=== PATIENT | male | born 1950 | race Caucasian/White ===

== ENCOUNTER 2016-05-10 12:20 | Emergency (ER) | payer BC ==
[~2016-05-10] VITALS: Ht 177.8 cm; Wt 82.0 kg
[~2016-05-10 12:20] MED LIST: ATOR-22 PO; IRBE-37 PO
[2016-05-10 12:23] VITALS: Ht 177.8 cm; Wt 82.0 kg
[2016-05-10] MEDS ORDERED: SODIUM CHLORIDE 0.9% 1000ML 1,000 ML IV STA (12:24)
[2016-05-10] MEDS ORDERED: ACETAMINOPHEN 500 MG TAB PO STA (12:24)
[2016-05-10] MEDS ORDERED: ALBUT/IPRATROP 3MG/0.5MG NEB 3 ML VIAL INH ONE (12:30)
--- NOTE | 2016-05-10 12:39 | EMERGENCY ROOM VISIT NOTE ---
History Report prepared by Triston: Mustapha Zaragoza Under the Supervision of: Dr. Jozef Wallis M.D. First contact with patient: 12:21 Chief Complaint: ILLNESS Stated Complaint: ILLNESS History of Present Illness The patient is a 66 year old male who presents to the Emergency Room with complaints of worsening fatigue that began last Wednesday, one week prior to arrival. The patient states that he began to experience flu-like symptoms last Wednesday. He went to see his primary care physician on Wednesday, five days prior to this visit and was diagnosed with an upper respiratory infection. He felt improved on Wednesday, but began to worsen again on Wednesday. Since this day the patient's cough has persisted and his general fatigue has worsened. His cough is dry. He has been taking Mucinex which have relieved his runny nose. He is not on any blood thinning medications, but does note a history of high blood pressure. He has been diagnosed with an IGG deficiency. 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 A total of 10 systems reviewed and were otherwise negative. Past Medical & Surgical Medical Problems: (1) IgG deficiency IgG deficiency Family History No pertinent family history. Social History Smoking Status: Former Smoker Alcohol Use: other Drug Use: none Marital Status: Housing Status: lives with significant other Current/Historical Medications Scheduled Atorvastatin (Lipitor), 20 MG PO QAM Azithromycin (Zithromax), 250 MG PO DAILY Benzonatate (Tessalon Perles), 100 MG PO TID Irbesartan (Avapro), 1 TAB PO QAM Prednisone (Prednisone Tab), 0 PO DAILY Allergies Coded Allergies: No Known Allergies (Unverified , 05/10/16) Physical Exam Vital Signs Date Time Temp Pulse Resp B/P Pulse Ox O2 Delivery O2 Flow Rate FiO2 05/10/16 14:02 36.7 83 16 149/70 100 05/10/16 13:12 64 05/10/16 13:04 62 22 95 Room Air 05/10/16 12:41 63 170/93 100 69 170/90 71 161/80 05/10/16 12:40 Room Air 05/10/16 12:39 Room Air 05/10/16 12:23 36.9 62 16 179/118 99 Room Air Physical Exam GENERAL: Patient is a healthy-appearing well-nourished HEAD: Normocephalic atraumatic EYES: Ocular movements intact pupils equal and react to light OROPHARYNX mucous membranes are moist no exudates present no erythema or edema present NECK: Supple no nuchal rigidity CHEST: Good equal expansion LUNGS: Clear and equal to auscultation CARDIAC: Normal S1 and S2 ABDOMEN: Soft nontender no guarding BACK: No CVA tenderness EXTREMITIES: No pain upon palpation normal muscle strength in all groups no clubbing cyanosis or edema NEURO: Patient is following commands is answering questions appropriately. Alert and oriented x3 Cranial Nerves 2-12 grossly intact Medical Decision & Procedures ER Provider Diagnostic Interpretation: Radiology results as stated below per my review and radiologist interpretation: SINGLE VIEW CHEST CLINICAL HISTORY: Cough. FINDINGS: An AP, portable, upright chest radiograph is obtained. No prior studies are available for comparison at the time of dictation. The examination is degraded by portable technique and patient rotation. The heart is top normal for projection and there is atherosclerotic calcification of the thoracic aorta. The lungs appear hyperinflated and hyperlucent with mild flattening of the diaphragm suggesting obstructive physiology. Nonspecific interstitial thickening is noted. No airspace consolidation or pleural effusion is identified. No pneumothorax is seen. The bony thorax is grossly intact. Mild degenerative change is noted in the thoracic spine. IMPRESSION: Findings suggest obstructive physiology. There is no acute cardiopulmonary abnormality. Electronically signed by: Dave Sewell M.D. 05/10/2016 1:06 PM Dictated Date/Time: 05/10/2016 1:04 PM Laboratory Results 05/10/16 12:30 Red Blood Count 4.43, Mean Corpuscular Volume 93.9, Mean Corpuscular Hemoglobin 33.6, Mean Corpuscular Hemoglobin Concent 35.8, Mean Platelet Volume 11.4, Neutrophils (%) (Auto) 53.0, Lymphocytes (%) (Auto) 38.8, Monocytes (%) (Auto) 7.0, Eosinophils (%) (Auto) 0.4, Basophils (%) (Auto) 0.6, Neutrophils # (Auto) 2.82, Lymphocytes # (Auto) 2.06, Monocytes # (Auto) 0.37, Eosinophils # (Auto) 0.02, Basophils # (Auto) 0.03 05/10/16 12:30 Test 05/10/16 12:30 White Blood Count 5.31 K/uL (4.8-10.8) Red Blood Count 4.43 M/uL (4.7-6.1) Hemoglobin 14.9 g/dL (14.0-18.0) Hematocrit 41.6 % (42-52) Mean Corpuscular Volume 93.9 fL (80-100) Mean Corpuscular Hemoglobin 33.6 pg (25-34) Mean Corpuscular Hemoglobin Concent 35.8 g/dl (32-36) Platelet Count 185 K/uL (130-400) Mean Platelet Volume 11.4 fL (7.4-10.4) Neutrophils (%) (Auto) 53.0 % Lymphocytes (%) (Auto) 38.8 % Monocytes (%) (Auto) 7.0 % Eosinophils (%) (Auto) 0.4 % Basophils (%) (Auto) 0.6 % Neutrophils # (Auto) 2.82 K/uL (1.4-6.5) Lymphocytes # (Auto) 2.06 K/uL (1.2-3.4) Monocytes # (Auto) 0.37 K/uL (0.11-0.59) Eosinophils # (Auto) 0.02 K/uL (0-0.5) Basophils # (Auto) 0.03 K/uL (0-0.2) RDW Standard Deviation 44.8 fL (36.4-46.3) RDW Coefficient of Variation 12.9 % (11.5-14.5) Immature Granulocyte % (Auto) 0.2 % Immature Granulocyte # (Auto) 0.01 K/uL (0.00-0.02) Urine Color YELLOW Urine Appearance CLEAR (CLEAR) Urine pH 7.0 (4.5-7.5) Urine Specific [place] 1.018 (1.000-1.030) Urine Protein NEG (NEG) Urine Glucose (UA) NEG (NEG) Urine Ketones NEG (NEG) Urine Occult Blood NEG (NEG) Urine Nitrite NEG (NEG) Urine Bilirubin NEG (NEG) Urine Urobilinogen NEG (NEG) Urine Leukocyte Esterase SMALL (NEG) Urine WBC (Auto) 5-10 /hpf (0-5) Urine RBC (Auto) 0-4 /hpf (0-4) Urine Hyaline Casts (Auto) 1-5 /lpf (0-5) Urine Epithelial Cells (Auto) 10-20 /lpf (0-5) Urine Bacteria (Auto) NEG (NEG) Anion Gap 12.0 mmol/L (3-11) Est Creatinine Clear Calc Drug Dose 81.3 ml/min Estimated GFR () 100.7 Estimated GFR (Non- 86.9 BUN/Creatinine Ratio 23.3 (10-20) Bedside Glucose 110 mg/dl (70-99) Calcium Level 9.6 mg/dl (8.5-10.1) Total Bilirubin 1.1 mg/dl (0.2-1) Direct Bilirubin 0.2 mg/dl (0-0.2) Aspartate Amino Transf (AST/SGOT) 21 U/L (15-37) Alanine Aminotransferase (ALT/SGPT) 54 U/L (12-78) Alkaline Phosphatase 80 U/L (45-117) Troponin I < 0.015 ng/ml (0-0.045) Total Protein 8.9 gm/dl (6.4-8.2) Albumin 4.1 gm/dl (3.4-5.0) Thyroid Stimulating Hormone (TSH) 1.050 uIu/ml (0.300-4.500) Influenza Type A (RT-PCR) Neg for Influ A (NEG) Influenza Type A Antigen Neg for Influ A (NEG) Influenza Type B Antigen Neg for Influ B (NEG) Influenza Type B (RT-PCR) Neg for Influ B (NEG) Labs reviewed by ED physician. Medications Administered Medications (Trade) Dose Ordered Sig/Mable Route Start Time Stop Time Status Last Admin Dose Admin Sodium Chloride (Nss 1000ml) 1,000 ml @ 999 mls/hr Q1H1M STAT IV 05/10/16 12:24 05/10/16 13:24 DC 05/10/16 12:36 999 MLS/HR Acetaminophen (Tylenol Tab) 1,000 mg NOW STAT PO 05/10/16 12:24 05/10/16 12:26 DC 05/10/16 12:36 1,000 MG Albuterol/ Ipratropium (Duoneb) 12 ml ONE ONCE INH 05/10/16 12:30 05/10/16 12:31 DC 05/10/16 13:00 12 ML Methylprednisolone Sodium Succinate (Solu-Medrol IV) 60 mg NOW STAT IV 05/10/16 13:00 05/10/16 13:01 DC 05/10/16 13:09 60 MG Ketorolac Tromethamine (Toradol Inj) 30 mg NOW STAT IV 05/10/16 13:13 05/10/16 13:14 DC 05/10/16 13:26 30 MG Azithromycin (Zithromax Tab) 500 mg NOW ONCE PO 05/10/16 13:30 05/10/16 13:31 DC 05/10/16 13:58 500 MG Albuterol (Ventolin Hfa Inhaler) 2 puffs NOW STAT INH 05/10/16 13:32 05/10/16 13:33 DC 05/10/16 13:58 2 PUFFS ECG Indication: weakness Rate (beats per minute): 62 Rhythm: normal sinus Findings: no acute ischemic change, no ectopy ED Course 1224: Past medical records reviewed. The patient was evaluated in room A3. A complete history and physical examination was performed. 1224: Ordered Acetaminophen 1000 mg PO, Sodium Chloride 1000 mL @ 999 mL/hr IV. 1230: Ordered Duoneb 12 mL INH. 1300: Ordered Solu-Medrol 60 mg IV. 1313: Ordered Toradol 30 mg IV. 1330: Ordered Azithromycin 500 mg PO. 1332: Ordered Albuterol 2 puffs INH. 1342: Upon reexamination the patient is feeling improved. I discussed results and treatment plan with the patient. He verbalizes agreement and understanding. The patient is ready for discharge. Medical Decision Differential diagnosis: Etiologies such as viral syndrome, otitis, pharyngitis, pneumonia, influenza, meningitis, urinary tract infection, sepsis, bacteremia, as well as others were entertained. This is a 66-year-old male who presents emergency department complaining of cough, the patient has a history of IgG deficiency. He does have normal white blood count and is well in appearance. He has no evidence of meningitis encephalitis on examination. Based on your chest x-ray finding I did start the patient on Solu-Medrol along with DuoNeb's. The patient was also started on azithromycin. The patient as well as to be discharged home however I will continue him on prednisone as well as azithromycin stressed the need for follow- up especially if his symptoms are not better. Patient was in agreement with the treatment plan. Impression Primary Impression: Bronchitis Scribe Attestation The scribe's documentation has been prepared under my direction and personally reviewed by me in its entirety. I confirm that the note above accurately reflects all work, treatment, procedures, and medical decision making performed by me. Departure Information Dispostion Home / Self-Care Prescriptions Prednisone (Prednisone Tab) 20 Mg Tab 0 PO DAILY, #7 TAB 2 TABS DAILY FOR 2 DAYS, THEN 1 TAB DAILY FOR 2 DAYS, THEN 1/2 TAB DAILY FOR 2 DAYS. Prov: Jozef Wallis MD 05/10/16 Azithromycin (ZITHROMAX) 250 Mg Tab 250 MG PO DAILY, #4 TAB Prov: Jozef Wallis MD 05/10/16 Referrals Dotty íRos M.D. (PCP) Forms HOME CARE DOCUMENTATION FORM, IMPORTANT VISIT INFORMATION, WORK / SCHOOL INSTRUCTIONS Patient Instructions My [facility] Additional Instructions Use inhaler twice every 6 hours Take 1000 mg Tylenol every 6 hours Culture results are usually available in approx 48 hours You have been examined and treated today on an emergency basis only. This is not a substitute for, or an effort to provide, complete comprehensive medical care. It is impossible to recognize and treat all injuries or illnesses in a single emergency department visit. It is therefore important that you follow up closely with Dr Ríos. Call as soon as possible for an appointment. Thank you for your time and consideration. I look forward to speaking with you again soon. Please don't hesitate to call us if you have any questions.
[2016-05-10 12:44] LABS: BASO % 0.6 %; BASO ABS # 0.03 K/uL (0-0.2); COMPLETE YES; EOS % 0.4 %; HEMATOCRIT 41.6 % (42-52); IG% 0.2 %; LYMPH % 38.8 %; LYMPH ABS # 2.06 K/uL (1.2-3.4); MEAN CELL VOLUME 93.9 fL (80-100); MEAN CORPUSCULAR HEMOGLOBIN 33.6 pg (25-34); MEAN CORPUSCULAR HGB CONC 35.8 g/dl (32-36); MEAN PLATELET VOLUME 11.4 fL (7.4-10.4); PLATELET COUNT 185 K/uL (130-400); RED BLOOD COUNT 4.43 M/uL (4.7-6.1); WHITE BLOOD COUNT 5.31 K/uL (4.8-10.8)
[2016-05-10 12:48] LABS: URINE APPEARANCE CLEAR (CLEAR); URINE BILIRUBIN NEG (NEG); URINE COLOR YELLOW; URINE NITRITE NEG (NEG); URINE SPECIFIC GRAVITY 1.018 (1.000-1.030); UROBILINOGEN NEG (NEG)
[2016-05-10 12:56] LABS: MANUAL MICROSCOPIC REQUIRED? NO; REVIEW REQ? NO
[2016-05-10 12:58] LABS: ALT/SGPT 54 U/L (12-78); BLOOD UREA NITROGEN 21 mg/dl (7-18); BUN/CREATININE RATIO 23.3 (10-20); CALCIUM 9.6 mg/dl (8.5-10.1); CARBON DIOXIDE 24 mmol/L (21-32); CHLORIDE 104 mmol/L (98-107); CREATININE 0.91 mg/dl (0.60-1.40); GLUCOSE 108 mg/dl (70-99); POTASSIUM 3.8 mmol/L (3.5-5.1); SODIUM 140 mmol/L (136-145)
[2016-05-10] MEDS ORDERED: METHYLPREDNISOLONE 125 MG VIAL IV STA (13:00)
[2016-05-10 13:04] VITALS: PULSE 62; O2SAT 95
--- NOTE | 2016-05-10 13:07 | DIAGNOSTIC IMAGING REPORT ---
SINGLE VIEW CHEST CLINICAL HISTORY: Cough. FINDINGS: An AP, portable, upright chest radiograph is obtained. No prior studies are available for comparison at the time of dictation. The examination is degraded by portable technique and patient rotation. The heart is top normal for projection and there is atherosclerotic calcification of the thoracic aorta. The lungs appear hyperinflated and hyperlucent with mild flattening of the diaphragm suggesting obstructive physiology. Nonspecific interstitial thickening is noted. No airspace consolidation or pleural effusion is identified. No pneumothorax is seen. The bony thorax is grossly intact. Mild degenerative change is noted in the thoracic spine. IMPRESSION: Findings suggest obstructive physiology. There is no acute cardiopulmonary abnormality. Electronically signed by: Dave Sewell M.D. 05/10/2016 1:06 PM Dictated Date/Time: 05/10/2016 1:04 PM
[2016-05-10 13:08] LABS: ALKALINE PHOSPHATASE 80 U/L (45-117); AST/SGOT 21 U/L (15-37)
[2016-05-10] MEDS ORDERED: KETOROLAC TROMETHAMINE 30 MG/ML VIAL IV STA (13:13)
[2016-05-10] MEDS ORDERED: BENZ100C6 PO (13:28)
[2016-05-10] MEDS ORDERED: AZITHROMYCIN 250 MG TAB PO ONE (13:30)
[2016-05-10] MEDS ORDERED: ALBUTEROL HFA 8 GM INHALER INH STA (13:32)
[2016-05-10] MEDS ORDERED: PRED20TA2 PO (13:33)
[2016-05-10] MEDS ORDERED: AZIT250T5 PO (13:33)
[2016-05-10 14:02] VITALS: BP 149/70; PULSE 83; TEMP 36.7; O2SAT 100
[2016-05-10 14:33] LABS: INFLUENZA A PCR Neg for Influ A (NEG); INFLUENZA B PCR Neg for Influ B (NEG)
== END 2016-05-10 14:00 | disposition home or self-care (01) ==
LOC: EDBD 12:20 → C.EDA 12:21
DX: J40 Bronchitis, not specified as acute or chronic (principal); Z87.891 Personal history of nicotine dependence

== ENCOUNTER → 2016-07-21 | Outpatient (CLI) | payer BC ==
[~2016-07-21] MED LIST changes: +BENZ100C6 PO; +PRED20TA2 PO
[2016-07-21 13:10] LABS: ESTIMATED AVERAGE GLUCOSE 105 mg/dl; HA1C FLAG Normal (Normal)
[2016-07-21 14:25] LABS: ALT/SGPT 47 U/L (12-78); AST/SGOT 21 U/L (15-37); BLOOD UREA NITROGEN 21 mg/dl (7-18); BUN/CREATININE RATIO 21.3 (10-20); CALCIUM 9.4 mg/dl (8.5-10.1); CARBON DIOXIDE 26 mmol/L (21-32); CHLORIDE 108 mmol/L (98-107); GLUCOSE 108 mg/dl (70-99); POTASSIUM 4.2 mmol/L (3.5-5.1); SODIUM 142 mmol/L (136-145)
[2016-07-21 14:27] LABS: ALKALINE PHOSPHATASE 82 U/L (45-117); CHOLESTEROL 148 mg/dl (0-200); HDL CHOLESTEROL 37 mg/dl; LDL CHOLESTEROL CALCULATED 77 mg/dl; TRIGLYCERIDES 168 mg/dl (0-150); VERY LOW DENSITY LIPOPROT CALC 34 mg/dl
== END | disposition home or self-care (01) ==
LOC: C.LABPVFM 07:49
PROVIDERS: ATTEND Family Medicine
DX: Z12.5 Encounter for screening for malignant neoplasm of prostate (principal); R73.01 Impaired fasting glucose; E78.5 Hyperlipidemia, unspecified; I10 Essential (primary) hypertension

== ENCOUNTER → 2016-07-24 | Outpatient (CLI) | payer BC ==
[2016-07-24 13:23] LABS: LYME DISEASE AB IGM NEG (NEG)
[2016-07-24 13:28] LABS: LYME DISEASE AB IGG POS (NEG)
--- NOTE | 2016-07-29 12:27 | CODING QUERY NO DIAGNOSIS ---
TREATMENT RENDERED WITHOUT A DIAGNOSIS To promote full compliance with coding requirements relating to patient care, physician participation is requested in all cases of environmental remediation specialist uncertainty. Please assist us with providing a diagnosis/symptom for the test(s) below: A diagnosis/symptom was not documented on your Order. A valid diagnosis/symptom is required to bill all insurances. Please remember that we are unable to code a diagnosis of rule out, probable, possible, questionable, or suspected. Tests that require a diagnosis: * WESTERN BLOT LYME DIAGNOSIS: * LYME IGG & IGM +WM CONFIRM DIAGNOSIS: Provider Signature: Date: Thank you Domenica [employer] Once completed, please kindly fax back to [phone] For questions please call [phone]
[2016-07-31 23:23] LABS: 18KDIGG BAND REACTIVE (NONREACTIVE); 23KDIGG BAND REACTIVE (NONREACTIVE); 23KDIGM BAND REACTIVE (NONREACTIVE); 28KDIGG BAND REACTIVE (NONREACTIVE); 30KDIGG BAND REACTIVE (NONREACTIVE); 39KDIGG BAND REACTIVE (NONREACTIVE); 39KDIGM BAND NONREACTIVE (NONREACTIVE); 41KDIGG BAND REACTIVE (NONREACTIVE); 41KDIGM BAND NONREACTIVE (NONREACTIVE); 45KDIGG BAND REACTIVE (NONREACTIVE); 58KDIGG BAND REACTIVE (NONREACTIVE); 66KDIGG BAND REACTIVE (NONREACTIVE); 93KDIGG BAND NONREACTIVE (NONREACTIVE)
== END | disposition home or self-care (01) ==
LOC: C.LABPVFM 08:40
PROVIDERS: ATTEND Family Medicine
DX: S70.361A Insect bite (nonvenomous), right thigh, initial encounter (principal); W57.XXXA Bitten or stung by nonvenomous insect and other nonvenomous arthropods, initial encounter

== ENCOUNTER → 2016-12-29 | Day surgery (SDC) | payer BC ==
[2016-05-05 13:56] VITALS: BMI 25.0
[2016-12-17 09:05] VITALS: Ht 180.3 cm; Wt 81.4 kg
[~2016-12-29] VITALS: Ht 180.3 cm; Wt 81.4 kg
[~2016-12-29] MED LIST changes: -BENZ100C6 PO; +LIDOCAINE HCL 2% 2 ML VIAL (20MG/ML) ONE; -PRED20TA2 PO; +PROPOFOL IV EMULSION 10 MG/ML 20 ML VIAL IV ONE; +SODIUM CHLORIDE 0.9% 500ML 500 ML IV ONE
--- NOTE | 2016-12-29 11:02 | Endo History and Physical ---
History & Physical Date of Service: Dec 29, 2016. Chief Complaint: screening Referring Physician: Dr. Ríos History of Present Illness 66 yo CM who presents for screening colonoscopy. Past Medical History High Cholesterol, Hypertension Past Surgical History Hx Cardiac Surgery: No Hx Internal Defibrillator: No Hx Pacemaker: No Hx Abdominal Surgery: No Hx of Implantable Prosthesis: No Hx Post-Op Nausea and Vomiting: No Hx Cancer Surgery: No Hx Thoracic Surgery: No Hx Orthopedic: No Hx Urinary Tract Surgery: No Family History None Social History Smoking Status: Former Smoker Hx Substance Use: No Hx Alcohol Use: Yes (OCCASIONAL) Allergies Coded Allergies: No Known Allergies (Verified , 12/29/16) Current Medications Reported Home Medications Medications Dose Route/Sig Max Daily Dose Days Date Category Avapro (Irbesartan) 150 Mg Tab 1 Tab PO QAM 04/24/15 Reported Lipitor (Atorvastatin Calcium) 20 Mg Tab 20 Mg PO QAM 09/19/14 Reported Vital Signs Weight (Kilograms): 81.36 Height (Feet): 5 Height (Inches): 11 Date Time Temp Pulse Resp B/P (MAP) Pulse Ox O2 Delivery O2 Flow Rate FiO2 12/29/16 10:21 36.5 64 20 162/89 (113) 99 Room Air Physical Exam General Appearance: WD/WN, no apparent distress Respiratory/Chest: Auscultation: breath sounds normal Cardiovascular: Heart Auscultation: RRR Abdomen: Bowel Sounds: normal Inspection & Palpation: soft, non-distended, no tenderness, guarding & rebound Assessment and Plan Assessment: 66 yo CM who presents for screening colonoscopy. Plan: Proceed with Colonoscopy.
--- NOTE | 2016-12-29 11:48 | GI REPORT ---
Procedure Date: 12/29/2016 11:11 AM Procedure: Colonoscopy Indications: Screening for colorectal malignant neoplasm Medicines: Monitored Anesthesia Care Complications: No immediate complications. Estimated Blood Loss: Estimated blood loss: none. Procedure: Pre-Anesthesia Assessment: - Prior to the procedure, a History and Physical was performed, and patient medications and allergies were reviewed. The patient's tolerance of previous anesthesia was also reviewed. The risks and benefits of the procedure and the sedation options and risks were discussed with the patient. All questions were answered, and informed consent was obtained. Prior Anticoagulants: The patient has taken no previous anticoagulant or antiplatelet agents. ASA Grade Assessment: II - A patient with mild systemic disease. After reviewing the risks and benefits, the patient was deemed in satisfactory condition to undergo the procedure. After I obtained informed consent, the scope was passed under direct vision. Throughout the procedure, the patient's blood pressure, pulse, and oxygen saturations were monitored continuously. The scope was introduced through the anus and advanced to the terminal ileum. The colonoscopy was performed without difficulty. The patient tolerated the procedure well. The quality of the bowel preparation was good. The terminal ileum, ileocecal valve, appendiceal orifice, and rectum were photographed. Findings: The perianal and digital rectal examinations were normal. A 4 mm polyp was found in the ascending colon. The polyp was sessile. The polyp was removed with a cold snare. Resection and retrieval were complete. A 5 mm polyp was found in the rectum. The polyp was sessile. The polyp was removed with a hot snare. Resection and retrieval were complete. Non-bleeding internal hemorrhoids were found during retroflexion. The hemorrhoids were small. Impression: - One 4 mm polyp in the ascending colon, removed with a cold snare. Resected and retrieved. - One 5 mm polyp in the rectum, removed with a hot snare. Resected and retrieved. - Non-bleeding internal hemorrhoids. Recommendation: - Resume previous diet. - Continue present medications. - Repeat colonoscopy for surveillance based on pathology results. - Return to primary care physician as previously scheduled. Ruben Lowery DO 12/29/2016 11:47:58 AM This report has been signed electronically. Note Initiated On: 12/29/2016 11:11 AM I attest to the content of the Intraoperative Record and orders documented therein, exceptions below
--- NOTE | 2016-12-29 11:52 | Discharge Instructions ---
Endoscopy Patient Instructions Date / Procedure(s) Performed Dec 29, 2016. Colonoscopy Allergy Information Coded Allergies: No Known Allergies (Verified , 12/29/16) Discharge Date / Findings Dec 29, 2016. Colon polyp Rectal polyp Internal Hemorrhoids Medication Instructions OK to resume all medications today as prescribed Reported Home Medications Medications Dose Route/Sig Max Daily Dose Days Date Category Avapro (Irbesartan) 150 Mg Tab 1 Tab PO QAM 04/24/15 Reported Lipitor (Atorvastatin Calcium) 20 Mg Tab 20 Mg PO QAM 09/19/14 Reported Provider Instructions Activity Restrictions - No exercising or heavy lifting for 24 hours. - Do not drink alcohol the day of the procedure. - Do not drive a car or operate machinery until the day after the procedure. - Do not make any important decisions or sign important papers in 24 hours after the procedure. Following Day: - Return to full activity which may include returning to work/school. Diet Start your diet with liquids and light foods (jello, soup, juice, toast). Then eat your usual diet if not nauseated. Treatment For Common After Affects For mild abdominal pain, bloating, or excessive gas: - Rest - Eat lightly - Lie on right side Follow-Up Information Follow-up with Dr. Ríos as scheduled Anesthesia Information What You Should Know You have had a procedure that required some medicine to reduce anxiety and discomfort. This treatment is called moderate sedation. After receiving the treatment, you may be sleepy, but you will be able to breathe on your own. The effects of the treatment may last for several hours. Follow these instructions along with Activity/Diet recommendations noted above: * Do NOT do anything where dizziness or clumsiness would be dangerous. * Rest quietly at home today, then you can be up and about tomorrow. * Have a responsible person stay with you the rest of today. * You may have had an I.V. today. If so, you may take the dressing off later today. Recommendations Call your doctor if: * Trouble breathing * Continuous vomiting for more than 24 hours * Temperature above 101 degrees * Severe abdominal pain or bloating * Pain not relieved by pain medicine ordered * There is increased drainage or redness from any incision * A large amount of rectal bleeding greater than 2-3 tablespoons. (If you had a polyp/s removed or have hemorrhoids, a small amount of blood - from the rectum is to be expected.) * You have any unanswered questions or concerns. IN THE EVENT OF A SERIOUS EMERGENCY, GO TO THE NEAREST EMERGENCY ROOM Your discharge instructions were prepared by provider Ruben Lowery. Patient Instructions Signature Page Joseph Pizano Patient (or Guardian) Signature/Date: I have read and understand the instructions given to me by my caregivers. Caregiver/RN/Doctor Signature/Date: The above-named patient and/or guardian has received patient instructions on this date. + Original Patient Signature Page (only) stays with chart. Please make copy for patient.
--- NOTE | 2016-12-29 11:56 | Anesthesiology Progress Note ---
Anesthesia Post Op Note Date & Time Dec 29, 2016 at 11:56 Vital Signs Pain Intensity: 0 Vital Signs Past 12 Hours Date Time Temp Pulse Resp B/P (MAP) Pulse Ox O2 Delivery O2 Flow Rate FiO2 12/29/16 10:21 36.5 64 20 162/89 (113) 99 Room Air Notes Mental Status: alert / awake / arousable, participated in evaluation Pt Amnestic to Procedure: Yes Nausea / Vomiting: adequately controlled Pain: adequately controlled Airway Patency, RR, SpO2: stable & adequate BP & HR: stable & adequate Hydration State: stable & adequate Anesthetic Complications: no major complications apparent
[2016-12-29 12:16] VITALS: BP 112/69; PULSE 63; O2SAT 98
== END | disposition home or self-care (01) ==
LOC: C.GI 10:00
PROVIDERS: ATTEND Internal Medicine
DX: Z12.11 Encounter for screening for malignant neoplasm of colon (principal); D12.2 Benign neoplasm of ascending colon; K62.1 Rectal polyp; K64.8 Other hemorrhoids; E78.00 Pure hypercholesterolemia, unspecified; I10 Essential (primary) hypertension; Z87.891 Personal history of nicotine dependence

== ENCOUNTER → 2017-01-19 | Outpatient (CLI) | payer BC ==
[~2017-01-19] MED LIST changes: -LIDOCAINE HCL 2% 2 ML VIAL (20MG/ML) ONE; -PROPOFOL IV EMULSION 10 MG/ML 20 ML VIAL IV ONE; -SODIUM CHLORIDE 0.9% 500ML 500 ML IV ONE
[2017-01-19 12:58] LABS: ALT/SGPT 51 U/L (12-78); BLOOD UREA NITROGEN 24 mg/dl (7-18); BUN/CREATININE RATIO 24.2 (10-20); CALCIUM 9.1 mg/dl (8.5-10.1); CARBON DIOXIDE 26 mmol/L (21-32); CHLORIDE 104 mmol/L (98-107); CHOLESTEROL 157 mg/dl (0-200); CREATININE 0.99 mg/dl (0.60-1.40); GLUCOSE 107 mg/dl (70-99); POTASSIUM 3.9 mmol/L (3.5-5.1); SODIUM 136 mmol/L (136-145)
[2017-01-19 13:01] LABS: ALB/GLOB RATIO 0.9 (0.9-2); ALKALINE PHOSPHATASE 87 U/L (45-117); AST/SGOT 23 U/L (15-37); CHOLESTEROL/HDL RATIO 4.2; HDL CHOLESTEROL 37 mg/dl; LDL CHOLESTEROL CALCULATED 67 mg/dl; TRIGLYCERIDES 265 mg/dl (0-150); VERY LOW DENSITY LIPOPROT CALC 53 mg/dl
== END | disposition home or self-care (01) ==
LOC: C.LABPVFM 07:51
PROVIDERS: ATTEND Family Medicine
DX: R73.01 Impaired fasting glucose (principal); E78.5 Hyperlipidemia, unspecified; T14.8XXA Other injury of unspecified body region, initial encounter; W57.XXXA Bitten or stung by nonvenomous insect and other nonvenomous arthropods, initial encounter; I10 Essential (primary) hypertension

== ENCOUNTER → 2017-07-09 | Outpatient (CLI) | payer BC ==
[2017-07-09 13:14] LABS: ALT/SGPT 54 U/L (12-78); AST/SGOT 24 U/L (15-37); BLOOD UREA NITROGEN 26 mg/dl (7-18); CARBON DIOXIDE 25 mmol/L (21-32); CHOLESTEROL 154 mg/dl (0-200); CREATININE 0.97 mg/dl (0.60-1.40); GLUCOSE 107 mg/dl (70-99); POTASSIUM 4.2 mmol/L (3.5-5.1); SODIUM 138 mmol/L (136-145)
[2017-07-09 13:17] LABS: ALKALINE PHOSPHATASE 84 U/L (45-117); LDL CHOLESTEROL CALCULATED 77 mg/dl; TOTAL PROTEIN 8.3 gm/dl (6.4-8.2)
== END | disposition home or self-care (01) ==
LOC: C.LABPVFM 07:50
PROVIDERS: ATTEND Family Medicine
DX: I10 Essential (primary) hypertension (principal)

== ENCOUNTER 2020-01-09 15:19 | Observation (INO) ==
[2020-01-09] MEDS ORDERED: METOPROLOL TARTRATE 1 MG/ML VIAL IV STA (15:40)
[2020-01-09] MEDS ORDERED: SODIUM CHLORIDE 0.9% 500 ML IV SCH (15:45)
--- NOTE | 2020-01-09 15:47 | Emergency Department Note ---
Impression & Plan Atrial fibrillation with rapid ventricular response, SOB (shortness of breath), Multiple myeloma ED Provider Note NAME: FE GARCIA AGE: 69 SEX: M : 1950 ARRIVES VIA: Walk-In INFORMANT: [Patient][cancer center] ED PROVIDER(S): [Dave Robert MD] CHIEF COMPLAINT: Cardiac assessment HISTORY OF PRESENT ILLNESS: The patient is a 69-year-old male who has multiple myeloma. He is on weekly chemotherapy injections. Patient has felt fatigued pretty much the entire summer but has been attributing it to his chemo. Today, he went for his injection and he was noted to be tachycardic. He was diagnosed with A. fib, this was thought to be new onset A. fib. He was sent to the ER. Patient has never had atrial fibrillation or atrial flutter before. He states he did not feel any palpitations. He has felt little bit more short of breath but again, he thought this was his chemo. There has been no fever, chills, cough or congestion. He has not had leg edema. No new medications. REVIEW OF SYSTEMS: See HPI for pertinent positives and negatives. A total of ten systems were reviewed and were otherwise negative. PMHx/PSHx: See Below SOCIAL HISTORY: See Below. PHYSICAL EXAM: GENERAL: Patient is in no acute distress. HEENT: No acute trauma, normocephalic atraumatic, mucous membranes moist, no nasal congestion, no scleral icterus. NECK: No stridor, no adenopathy, no meningismus, trachea is midline. LUNGS: Clear to auscultation bilaterally, no wheeze, no rhonchi, breath sounds equal. HEART: No murmurs, tachycardic with an irregular rhythm. ABDOMEN: Soft, nontender, bowel sounds positive, no hernias, no peritonitis. EXTREMITIES: No cyanosis or edema, full range of motion of all the joints without pain or difficulty, no signs for acute trauma. NEUROLOGIC: Oriented x 3, no acute motor or sensory deficits, no focal weakness. SKIN: No rash, no jaundice, no diaphoresis. DIFFERENTIAL DIAGNOSIS: Cardiac ischemia, aortic dissection, pulmonary embolism, pneumothorax, pneumonia, A. fib or a flutter, pericarditis, myocarditis, esophageal rupture, GERD, cholecystitis, pancreatitis, musculoskeletal, as well as other pathologies. EMERGENCY DEPARTMENT COURSE/PROCEDURES: ECG: Indication was tachycardia. The ECG shows a rapid atrial fibrillation/atrial flutter with a rate of 105. There is some nonspecific ST change. There is no ST elevation, no PVCs. The QTc is 473. Continuous Cardiac Monitoring: An order was placed for continuous cardiac monitoring. The monitor shows a rate of 75 with atrial fibrillation. MEDICAL DECISION MAKING: There is no leukocytosis. Hemoglobin was low but this is baseline looking back at previous testing. There was a normal platelet count. No coagulopathy. No significant electrolyte abnormality or kidney failure. No liver enzyme elevation. Patient appeared to be in a euthyroid state. ECG showed a rapid A. fib, no acute ischemia. Urinalysis does not show infection. Chest film does no t show pneumonia or CHF. Patient presents with a tachycardia. He appeared to be in a rapid A. fib. He was given a 500 cc saline bolus. He received 5 mg of metoprolol IV. The patient did markedly well with his IV Lopressor and saline. His heart rate is now in the 70s to 80s. He is resting comfortably. Patient has new onset A. fib, the length of time that he has been in A. fib is unclear. Further work-up is warranted. I did speak to the patient and case management. The on-call hospitalist was consulted. Past Med/Surg History Medical History Depression History of kidney stones Hyperlipidemia Hypertension IgG deficiency Lyme disease Multiple myeloma currently on meds Surgical History History of colonoscopy History of cystoscopy with stent placed 05/30/2019 History of tooth extraction WISDOM Family History Father Myocardial infarction Hypertension Grandmother Diabetes Sister Breast cancer Denies family history of Ovarian cancer Prostate cancer Colorectal cancer Social History Smoking Status: Former smoker Smoking End Date: 25 years ago; Second Hand Exposure: Yes (parents smoked); Hx Alcohol Use: Yes Alcohol type: beer Alcohol Intake Frequency Comment: 1-2 a night Hx Substance Use: No Preferred Language: Amharic Communication Ability: Effective Visual Impairment: No Limitations Corporate 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 Required: No Beliefs That Will Affect Care: None marital status: Current Living Situation: Spouse Current Living Situation Comment: with current occupational status: retired Feels Safe at Home: Yes Safety Concerns: Feels Safe At This Time caffeine: Yes Dental Care, Regularly: Yes Physical Activity Frequency: 3-4 Times per Week Seatbelt Use: always Sunscreen Use: Yes Assistive Devices: Denture - Upper and Glasses Allergies Allergies Allergy/AdvReac Type Severity Reaction Status Date / Time No Known Allergies Allergy Verified 01/09/20 17:23 Home Meds Home Medications Medication Instructions Recorded Confirmed amlodipine 5 mg PO QAM 05/24/19 01/09/20 atorvastatin 20 mg PO QAM 05/24/19 01/09/20 losartan 50 mg PO QAM 05/24/19 01/09/20 sertraline 12.5 mg PO QAM 05/24/19 01/09/20 Revlimid 10 mg PO DIRECTED 08/03/19 01/09/20 acyclovir 400 mg PO BID 08/03/19 01/09/20 aspirin 81 mg PO QAM 08/03/19 01/09/20 dexamethasone 40 mg PO WK 08/03/19 01/09/20 bortezomib 3.5 mg solution for See Rx Instructions .ROUTE .COMPLEX 08/30/19 01/09/20 injection Results & Data (ED) Vital Signs Vital Signs - 24 hr 01/09/20 15:27 01/09/20 15:44 01/09/20 15:50 Temperature 36.6 C Temperature Source Oral Pulse Rate 102 H 86 91 H Pulse Rate [Apical] Respiratory Rate 23 17 22 Respiratory Effort / Characteristics SOB on Exertion Respiratory Depth Shallow Respiratory Pattern Tachypnea Blood Pressure 163/89 H Blood Pressure [Left Arm] Blood Pressure Mean 113 Blood Pressure Mean [Left Arm] Pulse Oximetry 98 Oxygen Delivery Method Room Air Sepsis Recent Fever Within 48 Hours No Sepsis New/Unexplained Change in Mental Status No Sepsis Action Taken by Nursing No Action Required 01/09/20 16:00 01/09/20 16:10 01/09/20 16:11 Temperature Temperature Source Pulse Rate 85 86 84 Pulse Rate [Apical] 85 Respiratory Rate 21 18 18 Respiratory Effort / Characteristics Respiratory Depth Respiratory Pattern Blood Pressure 138/86 Blood Pressure [Left Arm] 138/86 Blood Pressure Mean 116 Blood Pressure Mean [Left Arm] 103 Pulse Oximetry 95 Oxygen Delivery Method Room Air Sepsis Recent Fever Within 48 Hours Sepsis New/Unexplained Change in Mental Status Sepsis Action Taken by Nursing 01/09/20 16:20 01/09/20 16:21 01/09/20 16:30 Temperature Temperature Source Pulse Rate 80 83 Pulse Rate [Apical] Respiratory Rate 20 21 Respiratory Effort / Characteristics Respiratory Depth Respiratory Pattern Blood Pressure Blood Pressure [Left Arm] Blood Pressure Mean Blood Pressure Mean [Left Arm] Pulse Oximetry 98 Oxygen Delivery Method Room Air Sepsis Recent Fever Within 48 Hours Sepsis New/Unexplained Change in Mental Status Sepsis Action Taken by Nursing 01/09/20 16:40 01/09/20 16:50 01/09/20 17:00 Temperature Temperature Source Pulse Rate 80 73 73 Pulse Rate [Apical] Respiratory Rate 21 23 23 Respiratory Effort / Characteristics Respiratory Depth Respiratory Pattern Blood Pressure Blood Pressure [Left Arm] Blood Pressure Mean Blood Pressure Mean [Left Arm] Pulse Oximetry Oxygen Delivery Method Sepsis Recent Fever Within 48 Hours Sepsis New/Unexplained Change in Mental Status Sepsis Action Taken by Nursing 01/09/20 17:10 01/09/20 17:15 01/09/20 17:16 Temperature Temperature Source Pulse Rate 74 65 Pulse Rate [Apical] 77 Respiratory Rate 22 16 22 Respiratory Effort / Characteristics Respiratory Depth Respiratory Pattern Blood Pressure 113/72 Blood Pressure [Left Arm] 113/72 Blood Pressure Mean 83 Blood Pressure Mean [Left Arm] 85 Pulse Oximetry 98 Oxygen Delivery Method Room Air Sepsis Recent Fever Within 48 Hours Sepsis New/Unexplained Change in Mental Status Sepsis Action Taken by Nursing 01/09/20 17:20 01/09/20 17:30 01/09/20 17:40 Temperature Temperature Source Pulse Rate 74 68 69 Pulse Rate [Apical] Respiratory Rate 23 19 18 Respiratory Effort / Characteristics Respiratory Depth Respiratory Pattern Blood Pressure Blood Pressure [Left Arm] Blood Pressure Mean Blood Pressure Mean [Left Arm] Pulse Oximetry Oxygen Delivery Method Sepsis Recent Fever Within 48 Hours Sepsis New/Unexplained Change in Mental Status Sepsis Action Taken by Nursing 01/09/20 17:50 01/09/20 18:00 01/09/20 18:10 Temperature Temperature Source Pulse Rate 74 74 71 Pulse Rate [Apical] Respiratory Rate 21 21 22 Respiratory Effort / Characteristics Respiratory Depth Respiratory Pattern Blood Pressure 122/75 Blood Pressure [Left Arm] Blood Pressure Mean 81 Blood Pressure Mean [Left Arm] Pulse Oximetry Oxygen Delivery Method Sepsis Recent Fever Within 48 Hours Sepsis New/Unexplained Change in Mental Status Sepsis Action Taken by Nursing 01/09/20 18:20 Temperature Temperature Source Pulse Rate 83 Pulse Rate [Apical] Respiratory Rate 21 Respiratory Effort / Characteristics Respiratory Depth Respiratory Pattern Blood Pressure Blood Pressure [Left Arm] Blood Pressure Mean Blood Pressure Mean [Left Arm] Pulse Oximetry Oxygen Delivery Method Sepsis Recent Fever Within 48 Hours Sepsis New/Unexplained Change in Mental Status Sepsis Action Taken by [facility] Medications Current Medication List: was personally reviewed by me Laboratory Data Attestation: I reviewed the patient's lab results. Result diagrams: 01/09/20 15:47 01/09/20 15:47 Lab Results 01/09/20 01/09/20 01/09/20 Range/Units 15:47 15:47 16:18 WBC 7.21 (4.8-10.8) K/uL RBC 3.36 L (4.7-6.1) M/uL Hgb 11.6 L (14.0-18.0) g/dL Hct 34.3 L (42-52) % MCV 102.1 H (80-100) fL MCH 34.5 H (25-34) pg MCHC 33.8 (32-36) g/dL RDW Std Deviation 65.2 H (36.4-46.3) fL RDW Coeff of Chapo 17.7 H (11.5-14.5) % Plt Count 205 (130-400) K/uL MPV 11.9 H (7.4-10.4) fL Immature Gran % (Auto) 0.3 % Neut % (Auto) 67.4 % Lymph % (Auto) 15.0 % Edwards % (Auto) 13.7 % Eos % (Auto) 3.5 % Baso % (Auto) 0.1 % Neut # (Auto) 4.86 (1.4-6.5) K/uL Lymph # (Auto) 1.08 L (1.2-3.4) K/uL Edwards # (Auto) 0.99 H (0.11-0.59) K/uL Eos # (Auto) 0.25 (0-0.5) K/uL Baso # (Auto) 0.01 (0-0.2) K/uL Immature Gran # (Auto) 0.02 (0.00-0.02) K/uL Sodium 141 (136-145) mmol/L Potassium 3.8 (3.5-5.1) mmol/L Chloride 109 H (98-107) mmol/L Carbon Dioxide 26 (21-32) mmol/L Anion Gap 6.0 (3-11) BUN 19 H (7-18) mg/dl Creatinine 1.20 (0.6-1.4) mg/dl Est Cr Clr Drug Dosing 61.0 ml/min Est GFR ( Amer) 70.6 Est GFR (Non-Af Amer) 60.9 BUN/Creatinine Ratio 15.8 (10-20) Glucose 110 H (70-99) mg/dl Calcium 8.8 (8.5-10.1) mg/dl Magnesium 2.0 (1.8-2.4) mg/dl Total Bilirubin 0.9 (0.2-1) mg/dl AST 14 L (15-37) U/L ALT 53 (12-78) U/L Alkaline Phosphatase 87 (45-117) U/L Troponin I 0.028 (0-0.045) ng/ml Total Protein 6.3 L (6.4-8.2) gm/dl Albumin 3.6 (3.4-5.0) gm/dl Globulin 2.7 (2.5-4.0) gm/dl Albumin/Globulin Ratio 1.3 (0.9-2) TSH 1.310 (0.300-4.500) uIu/ml Urine Color Dark Yellow Urine Appearance Clear (Clear) Urine pH 5.5 (4.5-7.5) Ur Specific [place] 1.023 (1.000-1.030) Urine Protein Trace H (Negative) Urine Glucose (UA) Negative (Negative) Urine Ketones Trace H (Negative) Urine Blood Negative (Negative) Urine Nitrite Negative (Negative) Urine Bilirubin Negative (Negative) Urine Urobilinogen Negative (Negative) Ur Leukocyte Esterase Trace H (Negative) Urine WBC (Auto) 1-5 (0-5) /hpf Urine RBC (Auto) 0-4 (0-4) /hpf U Hyaline Cast (Auto) 5-10 H (0-5) /lpf U Epithel Cells (Auto) 10-20 H (0-5) /lpf Urine Bacteria (Auto) Negative (Negative) Administered Medications Acyclovir (Acyclovir 400 Mg Tab) 400 mg PO BID MAXIME Stop: 02/08/20 20:59 Last Admin: 01/09/20 22:22 Dose: 400 mg Documented by: [id number] Apixaban (Apixaban 5 Mg Tablet) 5 mg PO BID MAXIME Stop: 02/08/20 20:59 Last Admin: 01/09/20 22:22 Dose: 5 mg Documented by: [id number] Metoprolol Tartrate (Metoprolol Tartrate 25 Mg Tab) 12.5 mg PO BID MAXIME Stop: 02/08/20 20:59 Last Admin: 01/09/20 22:23 Dose: 12.5 mg Documented by: [id number] Discontinued Medications Sodium Chloride (Nss) 500 mls @ 999 mls/hr IV .Q31M MAXIME Stop: 01/09/20 16:15 Last Infusion: 01/09/20 16:45 Dose: 0 mls/hr Documented by: [id number] Admin: 01/09/20 16:09 Dose: 999 mls/hr Documented by: [id number] Metoprolol Tartrate (Metoprolol Tartrate 1 Mg/Ml Vial) 5 mg IV NOW STA Stop: 01/09/20 15:41 Last Admin: 01/09/20 16:11 Dose: 5 mg Documented by: [id number] Imaging Data Radiologist's Impression: XR chest 1V portable CLINICAL HISTORY: weakness COMPARISON STUDY: 05/24/2019 FINDINGS: The heart is the upper limits of normal in size. There is no failure. There is no focal pulmonary consolidation. There are no pleural effusions.[ IMPRESSION: No active disease in the chest. Discharge Plan Visit Data Chief Complaint: Cardiac Assessment Stated Complaint: REF BY DOC ED Provider: Dave Robert Discharge Problem: Atrial fibrillation with rapid ventricular response, SOB (shortness of breath), Multiple myeloma Patient Disposition: Admitted As Inpatient Condition: Good Discharge Instructions Interventions: ED Discharge Assessment Last Done: 01/09/20 20:09 Discharge Problem: Multiple myeloma Qualifiers: Multiple myeloma remission status: not in remission Qualified Code(s): C90.00 - Multiple myeloma not having achieved remission
[2020-01-09 15:59] LABS: Basophils # (auto) 0.01 K/uL (0-0.2); Basophils % (auto) 0.1 %; Eosinophils # (auto) 0.25 K/uL (0-0.5); Eosinophils % (auto) 3.5 %; Hematocrit (blood only) 34.3 % (42-52); Hemoglobin 11.6 g/dL (14.0-18.0); Immature Granulocytes # (auto) 0.02 K/uL (0.00-0.02); Immature Granulocytes % (auto) 0.3 %; Lymphocytes # (auto) 1.08 K/uL (1.2-3.4); Mean Corpuscular Hemoglobin 34.5 pg (25-34); Mean Corpuscular Hgb Conc 33.8 g/dL (32-36); Mean Corpuscular Volume 102.1 fL (80-100); Mean Platelet Volume 11.9 fL (7.4-10.4); Monocytes # (auto) 0.99 K/uL (0.11-0.59); Monocytes % (auto) 13.7 %; Neutrophils # (auto) 4.86 K/uL (1.4-6.5); Neutrophils % (auto) 67.4 %; Platelet Count 205 K/uL (130-400); RDW Coefficient of Variation 17.7 % (11.5-14.5); RDW Standard Deviation 65.2 fL (36.4-46.3); Red Blood Count 3.36 M/uL (4.7-6.1); White Blood Count 7.21 K/uL (4.8-10.8)
[2020-01-09 16:15] LABS: Albumin Level 3.6 gm/dl (3.4-5.0); BUN Creatinine Ratio 15.8 (10-20); Calcium 8.8 mg/dl (8.5-10.1); Est GFR (African American) 70.6; Est GFR (Non-African American) 60.9; Potassium 3.8 mmol/L (3.5-5.1)
--- NOTE | 2020-01-09 16:20 | XRay Report ---
XR chest 1V portable CLINICAL HISTORY: weakness COMPARISON STUDY: 05/24/2019 FINDINGS: The heart is the upper limits of normal in size. There is no failure. There is no focal pul monary consolidation. There are no pleural effusions.[ IMPRESSION: No active disease in the chest. ACT 112: Negative or not required by law. Electronically signed by: Azar Menezes M.D. 01/09/2020 4:19 PM
[2020-01-09 16:26] LABS: Albumin Globulin Ratio 1.3 (0.9-2); Bilirubin,Total 0.9 mg/dl (0.2-1); Globulin 2.7 gm/dl (2.5-4.0); Thyroid Stimulating Hormone 1.31 uIu/ml (0.300-4.500); Total Protein 6.3 gm/dl (6.4-8.2); Troponin I 0.028 ng/ml (0-0.045)
[2020-01-09 16:38] LABS: Appearance Urine Clear (Clear); Bacteria Urine Automated Negative (Negative); Bilirubin Urine Negative (Negative); Blood Urine Negative (Negative); Color Urine Dark Yellow; Glucose Urine UA Negative (Negative); Ketones Urine Trace (Negative); Leukocyte Esterase Urine Trace (Negative); Nitrite Urine Negative (Negative); Protein Urine Trace (Negative); RBC Urine Automated 0-4 /hpf (0-4); Specific Gravity Urine 1.023 (1.000-1.030); Urobilinogen Urine Negative (Negative); pH Urine 5.5 (4.5-7.5)
--- NOTE | 2020-01-09 18:45 | History & Physical Report ---
Date of Service January 09, 2020 Assessment & Plan (1) Atrial fibrillation: Admit to [facility] Given 5 mg IV metoprolol in ED, rate now 77 Will initiate metoprolol po 12.5 mg bid Discussed risks and benefits of anticoagulation with patient and patient is agreeable to start anticoagulating. CHADS-vasc is 2. Will initiate Eliquis for anticoagulation. Will check PTT and INR Echo am D/C home asa (2) Benign hypertension: Hold amlodipine as we are initiating metoprolol Continue losartan (3) Hyperlipidemia: Continue home statin (4) Multiple myeloma: Chemotherapy was not administered today due to atrial fibrillation, typically receives weekly Patient is on his 7 days off of Revlimid so no need to give here (5) Anxiety: continue sertraline History of Present Illness Primary Care Provider: Guillermo Hilario DO Mr. Pizano presents from his oncology office where he was to receive chemotherapy for multiple myeloma. He had an irregular heart rate and was found to be in atrial fibrillation. He has had no symptoms with this and feels like his usual self, though he has felt fatigued, sob and lightheaded frequently for the past few months which he attributed to the chemo. Denies any fever, aches, chills, cough, chest pain, palpitations, n/v/d, dysuria, or hesitancy. In the ED he was found to be in an atrial fibrillation with a rate of 105. Allergies Allergy/AdvReac Type Severity Reaction Status Date / Time No Known Allergies Allergy Verified 01/09/20 17:23 Home Medications Home Medications Medication Instructions Recorded Confirmed Type amlodipine 5 mg PO QAM 05/24/19 01/09/20 History atorvastatin 20 mg PO QAM 05/24/19 01/09/20 History losartan 50 mg PO QAM 05/24/19 01/09/20 History sertraline 12.5 mg PO QAM 05/24/19 01/09/20 History Revlimid 10 mg PO DIRECTED 08/03/19 01/09/20 History acyclovir 400 mg PO BID 08/03/19 01/09/20 History aspirin 81 mg PO QAM 08/03/19 01/09/20 History dexamethasone 40 mg PO WK 08/03/19 01/09/20 History bortezomib 3.5 mg solution for See Rx Instructions .ROUTE .COMPLEX 08/30/19 01/09/20 History injection Past Med/Surg History Medical History Depression History of kidney stones Hyperlipidemia Hypertension IgG deficiency Lyme disease Multiple myeloma currently on meds Surgical History History of colonoscopy History of cystoscopy with stent placed 05/30/2019 History of tooth extraction WISDOM Family History Father Myocardial infarction Hypertension Grandmother Diabetes Sister Breast cancer Denies family history of Ovarian cancer Prostate cancer Colorectal cancer Social History Smoking Status: Former smoker Smoking End Date: 25 years ago; Second Hand Exposure: Yes (parents smoked); Hx Alcohol Use: Yes Alcohol type: beer Alcohol Intake Frequency Comment: 1-2 a night Hx Substance Use: No Preferred Language: Setswana Communication Ability: Effective Visual Impairment: No Limitations Transmission Maintenance Supervisor Required: No Beliefs That Will Affect Care: None marital status: Current Living Situation: Spouse Current Living Situation Comment: with current occupational status: retired Feels Safe at Home: Yes Safety Concerns: Feels Safe At This Time caffeine: Yes Dental Care, Regularly: Yes Physical Activity Frequency: 3-4 Times per Week Seatbelt Use: always Sunscreen Use: Yes Assistive Devices: Denture - Upper and Glasses Physical Exam Physical Exam: General: no distress Eyes: normal inspection, PERLL Respiratory: chest non tender, clear to auscultation, normal breath sounds, no respiratory distress, no accessory muscle use Cardiac: regular rate and rhythm, no rub or gallop, no murmur, no edema, no jvd GI/: active bowel sounds, no abd pain or tenderness, soft, non distended Extremities: normal range of motion, normal strength, non tender Neuro/Psych: alert and oriented x 3, normal mood and affect Skin: normal color, dry Results & Data Results & Data ([facility]) Vital Signs (Past 12 Hours) Vital Signs Temp Pulse Pulse Resp BP BP Pulse Ox 01/09/20 17:15 77 16 113/72 98 01/09/20 16:21 98 01/09/20 16:11 84 138/86 01/09/20 16:10 85 18 138/86 95 11/10/20 15:27 36.6 C 102 H 23 163/89 H 98 Code Status & VTE Plan VTE Prophylaxis Plan VTE Prophylaxis will be ordered: Yes Supervising Physician Co-Signing Physician Notes Patient seen and examined with Clarissa SEGURA. I agree with her exam findings, review of systems, assessment and plan. I personally reviewed the lab work and imaging as well. patient presented with new onset afib, not having significant symptoms so unsure how long he was in afib rates well controlled even without rate control medications started on Lopressor - New onset atrial fibrillation largely asymptomatic will start on Lopressor 12.5mg BID for rate control, Eliquis 5mg BID for stroke prevention monitor on tele over night, likely home on 01/09 will get echo can likely defer cardiology consult to outpatient setting since he is so stable PG Care Time/CCT Total # of Minutes Spent Total Time Spent with Patient: Total time spent is greater than 50% in coordination of care (as documented) at patient's floor/unit and/or counseling patient: Coding Level of Care Code 96919 Initial Inpt Care Lvl 3 Diagnoses Atrial fibrillation I48.91 Benign hypertension I10 Hyperlipidemia E78.5 Multiple myeloma C90.00 Anxiety F41.9
[2020-01-09 19:27] LABS: Partial Thromboplastin Ratio 0.8; Partial Thromboplastin Time 23.4 Seconds (21.0-31.0)
[2020-01-09] MEDS ORDERED: ACETAMINOPHEN 325 MG TAB PO PRN (20:39)
[2020-01-09] MEDS: ACYCLOVIR 400 MG TAB PO SCH (22:22)
[2020-01-09] MEDS: APIXABAN 5 MG TABLET PO SCH (22:22)
[2020-01-09] MEDS: METOPROLOL TARTRATE 25 MG TAB PO SCH (22:23)
[2020-01-10] MEDS: METOPROLOL TARTRATE 25 MG TAB PO SCH (08:13)
[2020-01-10] MEDS: APIXABAN 5 MG TABLET PO SCH (08:13)
[2020-01-10] MEDS: ACYCLOVIR 400 MG TAB PO SCH (08:14)
[2020-01-10] MEDS ORDERED: LOSARTAN POTASSIUM 50 MG TAB PO SCH (09:00)
[2020-01-10] MEDS ORDERED: ATORVASTATIN 20 MG TAB PO SCH (09:00)
[2020-01-10] MEDS ORDERED: METOPROLOL SUCC 25MG EXT REL TAB PO SCH (09:00)
[2020-01-10] MEDS ORDERED: SERTRALINE HCL 50 MG TABLET PO SCH (09:00)
--- NOTE | 2020-01-10 09:02 | XCELERA ---
[id number] \\[id number]
--- NOTE | 2020-01-10 10:04 | Discharge Summary ---
Date of Service January 10, 2020 Admission HPI Per Admitting Provider Mr. Pizano presents from his oncology office where he was to receive chemotherapy for multiple myeloma. He had an irregular heart rate and was found to be in atrial fibrillation. He has had no symptoms with this and feels like his usual self, though he has felt fatigued, sob and lightheaded frequently for the past few months which he attributed to the chemo. Denies any fever, aches, chills, cough, chest pain, palpitations, n/v/d, dysuria, or hesitancy. In the ED he was found to be in an atrial fibrillation with a rate of 105. Principal Diagnosis New onset atrial fibrillation Discharge Exam Constitutional WD/WN, vitals as above Respiratory normal respiratory effort, lungs clear to auscultation Cardiovascular Rate/Rhythm: + irregularly irregular Heart Sounds: normal S1 and normal S2 Gastrointestinal (Abdomen) normal bowel sounds, soft, nontender, no hepatosplenomegaly Musculoskeletal no cyanosis or clubbing, extremities motor strength 5/5 Skin no rashes, warm and dry Neurologic moves all extremities and awake Psychiatric A+Ox3, euthymic affect Discharge Data Allergies Allergy/AdvReac Type Severity Reaction Status Date / Time No Known Allergies Allergy Verified 01/09/20 17:23 Consultations 01/09/20 17:46 ED Decision to Admit Stat Hospital Course (1) Atrial fibrillation: Given 5 mg IV metoprolol in ED, rate now 77 Started on metoprolol succinate 25 mg for home Discussed risks and benefits of anticoagulation with patient and patient is agreeable to start anticoagulation. CHADS-vasc is 2. Eliquis for anticoagulation. Echo - mild mitral regurg, mild atrial dilatation, EF 55%, no wma D/C home asa - no history of CAD or stroke (2) Benign hypertension: D/C amlodipine to start metoprololmetoprolol Continue losartan (3) Hyperlipidemia: Continue home statin (4) Multiple myeloma: Chemotherapy was not administered yesterday due to atrial fibrillation, typically receives weekly Patient is on his 7 days off of Revlimid so no need to give here (5) Anxiety: continue sertraline Total Time Total Time Spent Total Time Spent (In Minutes): greater than 30 minutes Discharge Plan Discharge Items Patient Disposition: Home - Self-Care Reason For Visit: Atrial Fibrillation Discharge Diagnosis: Atrial fibrillation Condition on Discharge: Good Activity: Resume your previous activity Non-emergency contact: Primary Care Provider Call non-emergency contact if: you have any medication questions and your symptoms worsen Follow-up/Referrals: Guillermo Hilario, [Primary Care Provider] - 01/16/20 9:30 am (You have a follow up appt with your PCP on Wednesday at 0930am. Please arrive 15 minutes prior to your appt. It is important that you keep this appt, if it does not fit your schedule please call [phone] to reschedule. ) Diet: Heart Healthy Addtl Attending Provider Instructions: You will be sent home with and anticoagulant called apixaban (Eliquis) You should call your doctor right away if you fall or hit your head, if you see blood in your stool or black tarry stools, if you develop little red spots on your skin (petechiae), or if you develop excessive bruising. You may bleed more easily. Be careful and avoid injury. Use a soft toothbrush and an electric razor. Do not to take any [id number] pain medicine except Tylenol (including aspirin, ibuprofen, Motrin, Aleve, Advil, naproxen, diclofenac sodium, oral Voltaren, also not allowed to take fish oil as all these medications increase your incidence of bleeding) You can take Tylenol as needed for pain but not more than 3000 mg per day as a total dose (that is the maximum of 6 tablet, 500 mg each, divided throughout the day) , if you take more than the total of 3000 mg of Tylenol throughout the day you may damage your liver. You will also go home with a new prescription for metoprolol. Your amlodipine has been discontinued as metoprolol will also decrease your blood pressure. Please take your blood pressure at home every day after sitting quietly for 15 minutes with legs uncrossed and keep a log to take with you to your next appointment. Pending Studies at Discharge: No Stand-Alone Forms: My [facility] [employer] Smoking Cessation Medications and DC Order Prescriptions: New metoprolol succinate 25 mg Tablet Extended Release 24 Hr 25 mg PO QAM Qty: 30 RF: 1 Eliquis 5 mg Tablet 5 mg PO BID Qty: 60 RF: 1 Continued Velcade 3.5 mg recon soln See Rx Instructions .ROUTE .COMPLEX RF: 0 atorvastatin 20 mg tablet 20 mg PO QAM RF: 0 losartan 100 mg tablet 50 mg PO QAM RF: 0 sertraline 50 mg tablet 12.5 mg PO QAM RF: 0 acyclovir 400 mg Tablet 400 mg PO BID RF: 0 dexamethasone 4 mg Tablet 40 mg PO WK RF: 0 Revlimid 10 mg Capsule 10 mg PO DIRECTED RF: 0 Discontinued amlodipine 10 mg tablet 5 mg PO QAM RF: 0 aspirin 81 mg Tablet,Delayed Release (Dr/Ec) 81 mg PO QAM RF: 0 Discharge Orders: Discharge Order (Routine); Ordered 01/10/20 Ordered By: Clarissa Deutsch Admission Data Admit Date/Time: 01/09/20 18:28 Attending Provider: Jameel Jo Admit Provider: Jameel Jo Primary Care Provider: Guillermo Hilraio Other Providers: Jameel Jo Other Interventions: Discharge Summary Assessment (RN) Last Done: 01/10/20 10:14 Supervising Physician Co-Signing Physician Notes Patient seen and examined with Clarissa SEGRUA. I agree with her discharge summary patient feels well, no issues, ready to go home - New onset atrial fibrillation largely asymptomatic will start on Lopressor 12.5mg BID for rate control, Eliquis 5mg BID for stroke prevention can likely defer cardiology consult to outpatient setting since he is so stable Coding Level of Care Code D/C Day Management >30 mins Diagnoses Atrial fibrillation I48.91 Benign hypertension I10 Hyperlipidemia E78.5 Multiple myeloma C90.00 Anxiety F41.9
--- NOTE | 2020-01-10 15:52 | Electrocardiogram Report ---
Test Reason : Blood Pressure : / mmHG Vent. Rate : 105 BPM Atrial Rate : 119 BPM P-R Int : 000 ms QRS Dur : 096 ms QT Int : 358 ms P-R-T Axes : 000 -23 078 degrees QTc Int : 473 ms Atrial fibrillation with rapid ventricular response Abnormal ECG When compared with ECG of 24-MAY-2019 10:56, Atrial fibrillation has replaced Sinus rhythm Vent. rate has increased BY 48 BPM Confirmed by Kilo Cuevas ([id number]) on 01/10/2020 3:52:08 PM Referred By: Confirmed By:Kilo Cuevas
== END 2020-01-10 10:45 | disposition home or self-care (01) ==
LOC: ED 15:19 → 2N 18:28 → INTOOBSV 18:28 → 2N 20:09

== ENCOUNTER 2021-06-28 12:57 | Inpatient (IN) ==
[2021-06-28] MEDS ORDERED: CEFEPIME 20 ML IV STA (13:41)
[2021-06-28] MEDS ORDERED: SODIUM CHLORIDE 0.9% 500 ML IV ONE (13:42)
--- NOTE | 2021-06-28 14:09 | Emergency Department Note ---
History of Present Illness General Chief complaint: Illness Stated complaint: FEVER, CHILLLS Time Seen by Provider: 06/28/21 13:24 Source: patient and family (Wifw who Is at the bedside) Mode of arrival: ambulatory Limitations: no limitations History of Present Illness Maximum Pain Intensity: 7 This patient is 71-year-old male who has a history of bone marrow transplant and kidney stones, comes in after having a fever starting today. He has not been feeling well for the last couple of months. He had gallbladder issues in the fall but at the time they opted not to take it out but he is scheduled to see Dr. Jeff as they are reconsidering this. He does not really have any abdominal pain and some mild back pain which she attributed to laying around he has been sleeping over the last 24 hours. He thinks he may have COVID just because he is so tired but there is a negative COVID test at home his temper ature was up to 101.2. he had autologous plan for multiple myeloma and he received chemo for this as well. He is followed at [facility] for this. He is followed locally by our urology group. No dysuria or hematuria no rash but he has been outside and has had no known tick bites. Occasionally feels short of breath. no cough, no shortness of breath, no sore throat. Occasionally has a a mild headache but nothing significant, no neck pain or stiffness. Home Medications Medication Instructions Recorded Confirmed Type cholecalciferol (vitamin D3) 25 1,000 unit PO QAM 02/02/20 06/28/21 History mcg (1,000 unit) capsule apixaban 5 mg tablet (Eliquis) 5 mg PO BID #60 tab 02/09/20 06/28/21 Rx acyclovir 800 mg tablet 800 mg PO BID 07/01/20 06/28/21 History atorvastatin 20 mg tablet 10 mg PO QPM tab 07/03/20 06/28/21 History bortezomib 3.5 mg injection powder 1 mg SUBCUT .EVERY 2 WEEKS ea 11/14/20 06/28/21 History for solution (Velcade) denosumab 120 mg/1.7 mL (70 mg/mL) 120 mg SUBCUT MONTHLY 04/16/21 06/28/21 History subcutaneous solution (Xgeva) digoxin 125 mcg (0.125 mg) tablet 125 mcg PO QAM 05/22/21 06/28/21 History flecainide 50 mg tablet 50 mg PO BID 05/22/21 06/28/21 History losartan 100 mg tablet 100 mg PO QPM 05/22/21 06/28/21 History pantoprazole 40 mg tablet,delayed 40 mg PO QAM 05/22/21 06/28/21 History release Allergies Allergy/AdvReac Type Severity Reaction Status Date / Time grass pollen Allergy Unknown hay fever Verified 06/28/21 16:22 symptoms Past Med/Surg History Medical History Atrial fibrillation with rapid ventricular response 119bpm on presentation to ED 01/09/20. Now rate controlled. Has been on Eliquis since. 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 Kidney stones Lyme disease REMOTE HX, no current issues MGUS (monoclonal gammopathy of unknown significance) PT NOT SURE Multiple myeloma hx stem cell transplant 1 yr ago On anticoagulant therapy on eliquis daily Surgical History History of cardioversion (~02/09/20) unsucessful afib has resolved on own since History of colonoscopy History of cystoscopy multiple--last 08/07/2019 with stent placed History of stem cell transplant june 06 2020 - yosef History of tooth extraction WISDOM Family History Father Myocardial infarction Hypertension Grandmother Diabetes Sister Breast cancer Other No family history of adverse response to anesthesia Denies family history of Ovarian cancer Prostate cancer Colorectal cancer Social History Smoking Status: Never smoker Tobacco Type: Cigarettes packs per day: 1; Years Smoked: 20; Second Hand Exposure: Yes (parents smoked); Hx Alcohol Use: Yes Alcohol type: beer Alcohol Intake Frequency: 4 or More x per/Week Alcohol Intake Frequency Comment: 1-2 a night Hx Substance Use: Yes Non-Prescribed Medications: IV Drugs Substance Use Type Other:: SMOKE Preferred Language: French Communication Ability: Effective Visual Impairment: No Limitations Stem Mounter Required: No Beliefs That Will Affect Care: None marital status: Current Living Situation: Spouse Current Living Situation Comment: with current occupational status: retired How many Children do You have: 1 Feels Safe at Home: Yes caffeine: Yes Dental Care, Regularly: Yes Physical Activity Frequency: 3-4 Times per Week Seatbelt Use: always Sunscreen Use: Yes Assistive Devices: Glasses Review of Systems A total of 10 systems reviewed and were otherwise negative Physical Exam Vital Signs Vital Signs - 24 hr 06/28/21 13:02 06/28/21 13:39 06/28/21 14:09 Temperature 37.9 C H Temperature Source Oral Pulse Rate 85 Pulse Rate from SpO2 Sensor Respiratory Rate 18 Respiratory Effort / Characteristics Non-Labored Spontaneous Non-Labored Respiratory Depth Normal Respiratory Pattern Regular Blood Pressure 131/76 Blood Pressure Mean 94 Blood Pressure Position Sitting Pulse Oximetry 96 Oxygen Delivery Method Room Air Room Air Sepsis Recent Fever Within 48 Hours Yes Sepsis New/Unexplained Change in Mental Status No Sepsis Action Taken by Nursing No Action Required 06/28/21 14:13 06/28/21 14:15 06/28/21 14:29 Temperature 38.9 C H Temperature Source Oral Pulse Rate 82 82 Pulse Rate from SpO2 Sensor 82 Respiratory Rate 19 Respiratory Effort / Characteristics Respiratory Depth Respiratory Pattern Blood Pressure Blood Pressure Mean Blood Pressure Position Pulse Oximetry 96 95 Oxygen Delivery Method Sepsis Recent Fever Within 48 Hours Sepsis New/Unexplained Change in Mental Status Sepsis Action Taken by Nursing 06/28/21 14:30 06/28/21 14:35 06/28/21 14:39 Temperature Temperature Source Pulse Rate 83 Pulse Rate from SpO2 Sensor Respiratory Rate 21 Respiratory Effort / Characteristics Non-Labored Respiratory Depth Respiratory Pattern Blood Pressure Blood Pressure Mean Blood Pressure Position Pulse Oximetry 96 Oxygen Delivery Method Room Air Sepsis Recent Fever Within 48 Hours Sepsis New/Unexplained Change in Mental Status Sepsis Action Taken by Nursing 06/28/21 14:45 06/28/21 15:00 06/28/21 15:15 Temperature Temperature Source Pulse Rate 81 82 Pulse Rate from SpO2 Sensor 82 Respiratory Rate 21 Respiratory Effort / Characteristics Non-Labored Respiratory Depth Respiratory Pattern Blood Pressure 159/74 H Blood Pressure Mean 102 Blood Pressure Position Pulse Oximetry 96 95 96 Oxygen Delivery Method Room Air Sepsis Recent Fever Within 48 Hours Sepsis New/Unexplained Change in Mental Status Sepsis Action Taken by Nursing General: Well developed well nourished chronically ill-appearing but nonacute older male who appears in no acute distress, breathing comfortably on room air. Normal speech. Normal patient alert and orient x3 answers all questions appropriately HEENT: Normal cephalic atraumatic. Pupils are equal round and reactive to light. Extraocular movements are intact. Oropharynx is pink with moist mucous membranes. No swelling of the mouth lips or tongue. Neck: Supple with a midline trachea. No meningeal signs or stiffness, no JVD or bruits. No Stridor. Chest: Clear to auscultation bilaterally. No wheezes or rhonchi. No increased work of breathing. Heart: Regular rate and rhythm without murmurs or gallops. Abdomen: Soft nontender, nondistended without rebound guarding or rigidity. Extremities: No cyanosis clubbing or edema. No calf tenderness or assymetry Spine/Back. Non tender to palpation. No CVA tenderness Skin: Good turgor without rashes. Neurologic exam: Cranial nerves two through 12 are intact. Motor and sensation are intact and symmetrical throughout. Course Administered Medications Discontinued Medications Acetaminophen (Acetaminophen 325 Mg Tab) Confirm Administered Dose 650 mg .ROUTE .STK-MED ONE Stop: 06/28/21 14:42 Last Admin: 06/28/21 14:49 Dose: 650 mg Documented by: [id number] Cefepime HCl (Maxipime) 20 mls @ 5 mls/min IV NOW STA Stop: 06/28/21 13:44 Last Admin: 06/28/21 14:49 Dose: 5 mls/min Documented by: [id number] Sodium Chloride (Nss) 500 mls @ 999 mls/hr IV .Q31M ONE Stop: 06/28/21 14:12 Last Infusion: 06/28/21 15:18 Dose: 0 mls/hr Documented by: [id number] Admin: 06/28/21 14:49 Dose: 999 mls/hr Documented by: [id number] Critical Care Time Critical Care Time: Yes Total Critical Care Time: 30 The patient's fever, immunocompromise state and concern for sepsis and need for frequent reassessment, evaluation, consultations and discussion with the patient and his , I have personally spent greater than 35 minutes of critical care time in the direct management of this patient. This includes bedside care, interpretation of diagnostic studies, and testing, discussion with consultants, patient, and family members, and other required patient management activities. This 35 minutes is in excess of all separately billable procedures. Medical Decision Making Differential Diagnosis Sepsis, COVID, tickborne illness, pneumonia, urinary infection, urinary obstruction, gallbladder disease, cardiac disease, toxicologic, metabolic Medical Records Attestation: I reviewed the patient's medical records. Home Medications Current Medication List: was personally reviewed by me Laboratory Data Attestation: I reviewed the patient's lab results. Result diagrams: 06/28/21 14:24 06/28/21 14:24 Lab Results 06/28/21 06/28/21 06/28/21 Range/Units 13:54 14:24 14:24 WBC (4.8-10.8) K/uL RBC (4.7-6.1) M/uL Hgb (14.0-18.0) g/dL Hct (42-52) % MCV (80-100) fL MCH (25-34) pg MCHC (32-36) g/dL RDW Std Deviation (36.4-46.3) fL RDW Coeff of Chapo (11.5-14.5) % Plt Count (130-400) K/uL MPV (7.4-10.4) fL Immature Gran % (Auto) % Neut % (Auto) % Lymph % (Auto) % Whitley % (Auto) % Eos % (Auto) % Baso % (Auto) % Neut # (Auto) (1.4-6.5) K/uL Lymph # (Auto) (1.2-3.4) K/uL Whitley # (Auto) (0.11-0.59) K/uL Eos # (Auto) (0-0.5) K/uL Baso # (Auto) (0-0.2) K/uL Immature Gran # (Auto) (0.00-0.02) K/uL PT (9.0-12.0) Seconds INR (0.9-1.1) APTT (21.0-31.0) Seconds PTT Ratio Sodium (136-145) mmol/L Potassium (3.5-5.1) mmol/L Chloride (98-107) mmol/L Carbon Dioxide (21-32) mmol/L Anion Gap (3-11) BUN (6-23) mg/dl Creatinine (0.6-1.4) mg/dl Est Cr Clr Drug Dosing ml/min Est GFR ( Amer) ml/min Est GFR (Non-Af Amer) ml/min BUN/Creatinine Ratio (10-20) Glucose (70-99(Fasting)) mg/dl Lactate (0.4-2.0) mmol/L Calcium (8.5-10.1) mg/dl Magnesium (1.7-2.4) mg/dl Total Bilirubin (0.2-1.0) mg/dl AST (13-39) U/L ALT (7-52) U/L Alkaline Phosphatase (34-104) U/L Troponin I High Sens 13.2 (0-20) pg/ml Total Protein (6.0-8.3) gm/dl Albumin (3.4-5.0) gm/dl Globulin (2.5-4.0) gm/dl Albumin/Globulin Ratio (0.9-2) Procalcitonin (0-0.5) ng/ml Urine Color Yellow Urine Appearance Clear (Clear) Urine pH 5.5 (4.5-7.5) Ur Specific [place] 1.016 (1.000-1.030) Urine Protein Trace H (Negative) Urine Glucose (UA) Negative (Negative) Urine Ketones Trace H (Negative) Urine Blood 1+ H (Negative) Urine Nitrite Negative (Negative) Urine Bilirubin Negative (Negative) Urine Urobilinogen Negative (Negative) Ur Leukocyte Esterase 1+ H (Negative) Urine WBC (Auto) 10-30 H (0-5) /hpf Urine RBC (Auto) 0-4 (0-4) /hpf U Hyaline Cast (Auto) 1-5 (0-5) /lpf U Epithel Cells (Auto) 5-10 H (0-5) /lpf Urine Bacteria (Auto) Negative (Negative) Urine Yeast Not Reportable Digoxin (0.8-2.0) ng/ml Adenovirus (PCR) (NotDetected) Anaplasma Smear Babesia Smear B. pertussis DNA (PCR) (NotDetected) B.parapertussis DNA PCR (NotDetected) Lyme Disease IgG Ab Positive A (Negative) Lyme Disease IgM Ab Negative (Negative) C. pneumoniae DNA (PCR) (NotDetected) Coronavirus OC43 (PCR) (NotDetected) Coronavirus HKU1 (PCR) (NotDetected) Coronavirus 229E (PCR) (NotDetected) SARS-CoV-2 (PCR) (NotDetected) Coronavirus NL63 (PCR) (NotDetected) Human Metapneumovir PCR (NotDetected) Influenza Type A (PCR) (NotDetected) Influenza Type B (PCR) (NotDetected) M. pneumoniae (PCR) (NotDetected) Parainfluenza 1 (PCR) (NotDetected) Parainfluenza 2 (PCR) (NotDetected) Parainfluenza 3 (PCR) (NotDetected) Parainfluenza 4 (PCR) (NotDetected) RSV (PCR) (NotDetected) Entero/Rhino (PCR) (NotDetected) 06/28/21 06/28/21 06/28/21 Range/Units 14:24 14:24 14:24 WBC 11.83 H (4.8-10.8) K/uL RBC 3.52 L (4.7-6.1) M/uL Hgb 12.7 L (14.0-18.0) g/dL Hct 37.0 L (42-52) % MCV 105.1 H (80-100) fL MCH 36.1 H (25-34) pg MCHC 34.3 (32-36) g/dL RDW Std Deviation 51.9 H (36.4-46.3) fL RDW Coeff of Chapo 13.5 (11.5-14.5) % Plt Count 231 (130-400) K/uL MPV 9.7 (7.4-10.4) fL Immature Gran % (Auto) 0.2 % Neut % (Auto) 76.8 % Lymph % (Auto) 10.7 % Whitley % (Auto) 12.1 % Eos % (Auto) 0.1 % Baso % (Auto) 0.1 % Neut # (Auto) 9.09 H (1.4-6.5) K/uL Lymph # (Auto) 1.27 (1.2-3.4) K/uL Whitley # (Auto) 1.43 H (0.11-0.59) K/uL Eos # (Auto) 0.01 (0-0.5) K/uL Baso # (Auto) 0.01 (0-0.2) K/uL Immature Gran # (Auto) 0.02 (0.00-0.02) K/uL PT 11.9 (9.0-12.0) Seconds INR 1.1 (0.9-1.1) APTT 32.1 H (21.0-31.0) Seconds PTT Ratio 1.2 Sodium 136 (136-145) mmol/L Potassium 3.5 (3.5-5.1) mmol/L Chloride 103 (98-107) mmol/L Carbon Dioxide 25 (21-32) mmol/L Anion Gap 8 (3-11) BUN 16 (6-23) mg/dl Creatinine 1.01 (0.6-1.4) mg/dl Est Cr Clr Drug Dosing 63.0 ml/min Est GFR ( Amer) 85.7 ml/min Est GFR (Non-Af Amer) 74.0 ml/min BUN/Creatinine Ratio 15.8 (10-20) Glucose 112 H (70-99(Fasting)) mg/dl Lactate (0.4-2.0) mmol/L Calcium 8.9 (8.5-10.1) mg/dl Magnesium 1.8 (1.7-2.4) mg/dl Total Bilirubin 1.4 H (0.2-1.0) mg/dl AST 14 (13-39) U/L ALT 23 (7-52) U/L Alkaline Phosphatase 55 (34-104) U/L Troponin I High Sens (0-20) pg/ml Total Protein 6.3 (6.0-8.3) gm/dl Albumin 4.1 (3.4-5.0) gm/dl Globulin 2.2 L (2.5-4.0) gm/dl Albumin/Globulin Ratio 1.9 (0.9-2) Procalcitonin (0-0.5) ng/ml Urine Color Urine Appearance (Clear) Urine pH (4.5-7.5) Ur Specific [place] (1.000-1.030) Urine Protein (Negative) Urine Glucose (UA) (Negative) Urine Ketones (Negative) Urine Blood (Negative) Urine Nitrite (Negative) Urine Bilirubin (Negative) Urine Urobilinogen (Negative) Ur Leukocyte Esterase (Negative) Urine WBC (Auto) (0-5) /hpf Urine RBC (Auto) (0-4) /hpf U Hyaline Cast (Auto) (0-5) /lpf U Epithel Cells (Auto) (0-5) /lpf Urine Bacteria (Auto) (Negative) Urine Yeast Digoxin (0.8-2.0) ng/ml Adenovirus (PCR) (NotDetected) Anaplasma Smear See Comment Babesia Smear See Comment B. pertussis DNA (PCR) (NotDetected) B.parapertussis DNA PCR (NotDetected) Lyme Disease IgG Ab (Negative) Lyme Disease IgM Ab (Negative) C. pneumoniae DNA (PCR) (NotDetected) Coronavirus OC43 (PCR) (NotDetected) Coronavirus HKU1 (PCR) (NotDetected) Coronavirus 229E (PCR) (NotDetected) SARS-CoV-2 (PCR) (NotDetected) Coronavirus NL63 (PCR) (NotDetected) Human Metapneumovir PCR (NotDetected) Influenza Type A (PCR) (NotDetected) Influenza Type B (PCR) (NotDetected) M. pneumoniae (PCR) (NotDetected) Parainfluenza 1 (PCR) (NotDetected) Parainfluenza 2 (PCR) (NotDetected) Parainfluenza 3 (PCR) (NotDetected) Parainfluenza 4 (PCR) (NotDetected) RSV (PCR) (NotDetected) Entero/Rhino (PCR) (NotDetected) 06/28/21 06/28/21 06/28/21 Range/Units 14:24 14:24 14:25 WBC (4.8-10.8) K/uL RBC (4.7-6.1) M/uL Hgb (14.0-18.0) g/dL Hct (42-52) % MCV (80-100) fL MCH (25-34) pg MCHC (32-36) g/dL RDW Std Deviation (36.4-46.3) fL RDW Coeff of Chapo (11.5-14.5) % Plt Count (130-400) K/uL MPV (7.4-10.4) fL Immature Gran % (Auto) % Neut % (Auto) % Lymph % (Auto) % Whitley % (Auto) % Eos % (Auto) % Baso % (Auto) % Neut # (Auto) (1.4-6.5) K/uL Lymph # (Auto) (1.2-3.4) K/uL Whitley # (Auto) (0.11-0.59) K/uL Eos # (Auto) (0-0.5) K/uL Baso # (Auto) (0-0.2) K/uL Immature Gran # (Auto) (0.00-0.02) K/uL PT (9.0-12.0) Seconds INR (0.9-1.1) APTT (21.0-31.0) Seconds PTT Ratio Sodium (136-145) mmol/L Potassium (3.5-5.1) mmol/L Chloride (98-107) mmol/L Carbon Dioxide (21-32) mmol/L Anion Gap (3-11) BUN (6-23) mg/dl Creatinine (0.6-1.4) mg/dl Est Cr Clr Drug Dosing ml/min Est GFR ( Amer) ml/min Est GFR (Non-Af Amer) ml/min BUN/Creatinine Ratio (10-20) Glucose (70-99(Fasting)) mg/dl Lactate 1.1 (0.4-2.0) mmol/L Calcium (8.5-10.1) mg/dl Magnesium (1.7-2.4) mg/dl Total Bilirubin (0.2-1.0) mg/dl AST (13-39) U/L ALT (7-52) U/L Alkaline Phosphatase (34-104) U/L Troponin I High Sens (0-20) pg/ml Total Protein (6.0-8.3) gm/dl Albumin (3.4-5.0) gm/dl Globulin (2.5-4.0) gm/dl Albumin/Globulin Ratio (0.9-2) Procalcitonin 0.32 (0-0.5) ng/ml Urine Color Urine Appearance (Clear) Urine pH (4.5-7.5) Ur Specific [place] (1.000-1.030) Urine Protein (Negative) Urine Glucose (UA) (Negative) Urine Ketones (Negative) Urine Blood (Negative) Urine Nitrite (Negative) Urine Bilirubin (Negative) Urine Urobilinogen (Negative) Ur Leukocyte Esterase (Negative) Urine WBC (Auto) (0-5) /hpf Urine RBC (Auto) (0-4) /hpf U Hyaline Cast (Auto) (0-5) /lpf U Epithel Cells (Auto) (0-5) /lpf Urine Bacteria (Auto) (Negative) Urine Yeast Digoxin 1.0 (0.8-2.0) ng/ml Adenovirus (PCR) (NotDetected) Anaplasma Smear Babesia Smear B. pertussis DNA (PCR) (NotDetected) B.parapertussis DNA PCR (NotDetected) Lyme Disease IgG Ab (Negative) Lyme Disease IgM Ab (Negative) C. pneumoniae DNA (PCR) (NotDetected) Coronavirus OC43 (PCR) (NotDetected) Coronavirus HKU1 (PCR) (NotDetected) Coronavirus 229E (PCR) (NotDetected) SARS-CoV-2 (PCR) (NotDetected) Coronavirus NL63 (PCR) (NotDetected) Human Metapneumovir PCR (NotDetected) Influenza Type A (PCR) (NotDetected) Influenza Type B (PCR) (NotDetected) M. pneumoniae (PCR) (NotDetected) Parainfluenza 1 (PCR) (NotDetected) Parainfluenza 2 (PCR) (NotDetected) Parainfluenza 3 (PCR) (NotDetected) Parainfluenza 4 (PCR) (NotDetected) RSV (PCR) (NotDetected) Entero/Rhino (PCR) (NotDetected) 06/28/21 Range/Units Unknown WBC (4.8-10.8) K/uL RBC (4.7-6.1) M/uL Hgb (14.0-18.0) g/dL Hct (42-52) % MCV (80-100) fL MCH (25-34) pg MCHC (32-36) g/dL RDW Std Deviation (36.4-46.3) fL RDW Coeff of Chapo (11.5-14.5) % Plt Count (130-400) K/uL MPV (7.4-10.4) fL Immature Gran % (Auto) % Neut % (Auto) % Lymph % (Auto) % Whitley % (Auto) % Eos % (Auto) % Baso % (Auto) % Neut # (Auto) (1.4-6.5) K/uL Lymph # (Auto) (1.2-3.4) K/uL Whitley # (Auto) (0.11-0.59) K/uL Eos # (Auto) (0-0.5) K/uL Baso # (Auto) (0-0.2) K/uL Immature Gran # (Auto) (0.00-0.02) K/uL PT (9.0-12.0) Seconds INR (0.9-1.1) APTT (21.0-31.0) Seconds PTT Ratio Sodium (136-145) mmol/L Potassium (3.5-5.1) mmol/L Chloride (98-107) mmol/L Carbon Dioxide (21-32) mmol/L Anion Gap (3-11) BUN (6-23) mg/dl Creatinine (0.6-1.4) mg/dl Est Cr Clr Drug Dosing ml/min Est GFR ( Amer) ml/min Est GFR (Non-Af Amer) ml/min BUN/Creatinine Ratio (10-20) Glucose (70-99(Fasting)) mg/dl Lactate (0.4-2.0) mmol/L Calcium (8.5-10.1) mg/dl Magnesium (1.7-2.4) mg/dl Total Bilirubin (0.2-1.0) mg/dl AST (13-39) U/L ALT (7-52) U/L Alkaline Phosphatase (34-104) U/L Troponin I High Sens (0-20) pg/ml Total Protein (6.0-8.3) gm/dl Albumin (3.4-5.0) gm/dl Globulin (2.5-4.0) gm/dl Albumin/Globulin Ratio (0.9-2) Procalcitonin (0-0.5) ng/ml Urine Color Urine Appearance (Clear) Urine pH (4.5-7.5) Ur Specific [place] (1.000-1.030) Urine Protein (Negative) Urine Glucose (UA) (Negative) Urine Ketones (Negative) Urine Blood (Negative) Urine Nitrite (Negative) Urine Bilirubin (Negative) Urine Urobilinogen (Negative) Ur Leukocyte Esterase (Negative) Urine WBC (Auto) (0-5) /hpf Urine RBC (Auto) (0-4) /hpf U Hyaline Cast (Auto) (0-5) /lpf U Epithel Cells (Auto) (0-5) /lpf Urine Bacteria (Auto) (Negative) Urine Yeast Digoxin (0.8-2.0) ng/ml Adenovirus (PCR) Not Detected (NotDetected) Anaplasma Smear Babesia Smear B. pertussis DNA (PCR) Not Detected (NotDetected) B.parapertussis DNA PCR Not Detected (NotDetected) Lyme Disease IgG Ab (Negative) Lyme Disease IgM Ab (Negative) C. pneumoniae DNA (PCR) Not Detected (NotDetected) Coronavirus OC43 (PCR) Not Detected (NotDetected) Coronavirus HKU1 (PCR) Not Detected (NotDetected) Coronavirus 229E (PCR) Not Detected (NotDetected) SARS-CoV-2 (PCR) Not Detected (NotDetected) Coronavirus NL63 (PCR) Not Detected (NotDetected) Human Metapneumovir PCR Not Detected (NotDetected) Influenza Type A (PCR) Not Detected (NotDetected) Influenza Type B (PCR) Not Detected (NotDetected) M. pneumoniae (PCR) Not Detected (NotDetected) Parainfluenza 1 (PCR) Not Detected (NotDetected) Parainfluenza 2 (PCR) Not Detected (NotDetected) Parainfluenza 3 (PCR) Not Detected (NotDetected) Parainfluenza 4 (PCR) Not Detected (NotDetected) RSV (PCR) Not Detected (NotDetected) Entero/Rhino (PCR) Not Detected (NotDetected) Imaging Data Attestation: I personally reviewed and interpreted this imaging study as follows: My Impression: Chest x-rayno acute infiltrate, failure, pneumothorax seen Radiologist's Impression: Abdomen/Pelvis CT 06/28/21 13:[address] WITHOUT CONTRAST CT DOSE: 298.95 mGy.cm HISTORY: Acute generalized abdominal pain with fever. History of multiple myeloma. fever, eval for obs uropathy, GB TECHNIQUE: Multiaxial CT images of the abdomen and pelvis were performed without contrast. A dose lowering technique was utilized adhering to the principles of ALARA. COMPARISON STUDY: CT abdomen and pelvis 05/15/2021, 05/14/2020. FINDINGS: Small pericardial effusion. Coronary artery calcifications. Suggestion of mild emphysema. Right greater than left trace pleural effusions. Mild depende nt subsegmental bibasilar atelectasis. There is no pneumatosis or pneumoperitoneum. The unenhanced spleen, pancreas, gallbladder and adrenal glands are unremarkable. Hepatic steatosis. Unremarkable left kidney. There are 2 nonobstructing calculi noted within the right kidney measuring up to 8 mm within the interpolar distribution posteriorly. Moderate to severe right-sided hydroureteronephrosis with perinephric and periureteral inflammation. There are approximately 3 tiny calculi within the proximal right ureter measuring up to 3 mm at the level of L3-L4. On the prior study there is an 8 mm calculus within this region. On the prior study from 05/14/2020, ureteral stricture was noted within this area. Prostamegaly with urinary bladder wall thickening suggestive of chronic bladder outlet obstruction. Atherosclerosis of the aorta without aneurysm. Mild nonspecific distal esophageal wall thickening. No bowel obstruction or bowel wall thickening. Trace fluid tracks along the right pericolic gutter, likely secondary to aforementioned renal findings. Unremarkable soft tissues. The bones appear grossly intact. Degenerative changes of the spine, pelvis and hips. Chronic appearing Schmorl's nodes of the lumbar spine are unchanged. No new lucent bone lesions are identified. Unchanged subtle lucent foci of the pelvis and proximal femora. Lumbar levoscoliosis. IMPRESSION: 1. Moderate to severe right-sided hydroureteronephrosis is similar to 05/15/2021 study however demonstrates progressively worsened perinephric and periureteral inflammation. Correlate with urinalysis to exclude infection. 2. There are three calculi with proximal right ureter at the level of L3-L4 within an area of a previously described ureteral stricture. 3. Nonobstructing right nephrolithiasis. 4. Prostamegaly with findings suggestive of chronic bladder outlet obstruction. 5. No new lytic bone lesions are identified. 6. Trace pleural effusions. ACT 112: Negative or not required by law. The above report was generated using voice recognition software. It may contain grammatical, syntax or spelling errors. Electronically signed by: Colin Wilson M.D. 06/28/2021 3:55 PM Chest X-Ray 06/28/21 13:39 XR chest 1V portable HISTORY: 71 years-old Male SEPSIS acute sepsis COMPARISON: Chest radiographs 05/20/2021 TECHNIQUE: Portable AP view of the chest FINDINGS: The cardiomediastinal and hilar silhouettes are within normal limits. Unchanged mild diffuse interstitial coarsening. No pneumothorax, pleural effusion, airspace consolidation or overt pulmonary edema. Degenerative changes of the shoulders and spine. IMPRESSION: No acute process. ACT 112: Negative or not required by law. The above report was generated using voice recognition software. It may contain grammatical, syntax or spelling errors. Electronically signed by: Colin Wilson M.D. 06/28/2021 2:15 PM ECG Data Attestation: I personally reviewed and interpreted this ECG as follows: Indication: + weakness Rate (beats per minute): 83 Rhythm: + normal sinus ECG Intervals/blocks: + First degree AV block, + Normal QRS and + Normal QT ECG Colome: + Left axis deviation ECG ST segments: + Normal ST segments ECG Findings: no PACs or no PVCs Comparison ECG Date: from (07/01/20) Change: the following changes noted (Normal sinus rhythm has replaced A. fib) MDM Narrative This patient comes in after having fever and weakness his symptoms are otherwise nonspecific. He is nontoxic and [id number]-[id number] is not hypoxemic. I am concerned that he does have a temperature of 101.2 at home and he is immunocompromised. He is also had recent urologic stents although they were removed a couple weeks ago. A extensive sepsis type work-up was obtained which included multiple blood testing blood cultures urinalysis and culture. Also checked him for tickborne illnesses. In regards to COVID testing, but her bio fire as given his immunocompromise state it should give us more information and potential sources. I also ordered a CAT scan to rule out obstructive uropathy and also look at the gallbladder and other intra-abdominal processes. We did empirically cover him with 2 g of cefepime right after seeing him this order was placed as well an IV fluid bolus. He was reassessed frequently. Patient's chest x-ray does not show congestive heart failure pneumonia or pneumothorax. His bio fire was negative for COVID influenza and other pathogens. His white count was elevated however his lactic acid was not. He was given p.o. Tylenol for his fever. He tolerated the IV fluid bolus well and was given additional 500 cc IV normal saline bolus. Urinalysis does suggest a UTI with a culture pending. Skin does not suggest toxicity. He has no significant electrolyte or metabolic abnormalities. He has normal renal function. tickborne illness labs are negative thus far. his urinalysis suggests a urinary source. His CAT scan shows hydronephrosis on that side which is similar before but appears more stranding could be infection he does have some stones as well I did discuss the case with Dr. Rucker at length who is his urologist. He felt the patient could be admitted to the medical team with IV fluids and antibiotics and felt obstruction was unlikely acutely given his recent stent placement. I did discuss the case with the hospitalist as well and he will be admitted his Lyme titer did come back negative for IgM but positive for IV IgG which likely reflects previous exposure infection but not an acute process given the negative IgM. Continuous cardiac monitoring: An order was placed in the EMR for continuous cardiac monitoring. Upon my interpretation he was noted to be in normal sinus rhythm rate of 85 Impression & Plan Sepsis, Acute UTI (urinary tract infection), Lab test negative for COVID-19 vir us, Multiple myeloma, History of autologous stem cell transplant Discharge Plan Visit Data Chief Complaint: Illness Stated Complaint: FEVER, CHILL[facility] ED Provider: Deepak Cruz Discharge Problem: Sepsis, Acute UTI (urinary tract infection), Lab test negative for COVID-19 virus, Multiple myeloma, History of autologous stem cell transplant Forms Stand Alone Forms: My [facility] [employer] Prescriptions Prescriptions: No Action Eliquis 5 mg tablet 5 mg PO BID Qty: 60 RF: 11 atorvastatin 20 mg tablet 10 mg PO QPM RF: 0 Xgeva 120 mg/1.7 mL (70 mg/mL) solution 120 mg subcut MONTHLY RF: 0 cholecalciferol (vitamin D3) 25 mcg (1,000 unit) capsule 1,000 unit PO QAM RF: 0 Velcade 3.5 mg recon soln 1 mg subcut .EVERY 2 WEEKS RF: 0 acyclovir 800 mg tablet 800 mg PO BID RF: 0 pantoprazole 40 mg tablet,delayed release (DR/EC) 40 mg PO QAM RF: 0 flecainide 50 mg tablet 50 mg PO BID RF: 0 losartan 100 mg tablet 100 mg PO QPM RF: 0 digoxin 125 mcg (0.125 mg) Tablet 125 mcg PO QAM RF: 0 Referrals Referrals: Guillermo Hilario DO [Primary Care Provider] - Discharge Problem: Sepsis Qualifiers: Sepsis type: sepsis due to unspecified organism Sepsis acute organ dysfunction status: unspecified Qualified Code(s): A41.9 - Sepsis, unspecified organism Multiple myeloma Qualifiers: Multiple myeloma remission status: unspecified Qualified Code(s): C90.00 - Multiple myeloma not having achieved remission
--- NOTE | 2021-06-28 14:16 | XRay Report ---
XR chest 1V portable HISTORY: 71 years-old Male SEPSIS acute sepsis COMPARISON: Chest radiographs 05/20/2021 TECHNIQUE: Portable AP view of the chest FINDINGS: The cardiomediastinal and hilar silhouettes are within normal limits. Unchanged mild diffuse intersti tial coarsening. No pneumothorax, pleural effusion, airspace consolidation or overt pulmonary edema. Degenerative changes of the shoulders and spine. IMPRESSION: No acute process. ACT 112: Negative or not required by law. The above report was generated using voice recognition software. It may contain grammatical, syntax o r spelling errors. Electronically signed by: Colin Wilson M.D. 06/28/2021 2:15 PM
[2021-06-28] MEDS ORDERED: ACETAMINOPHEN 325 MG TAB ONE (14:41)
[2021-06-28 14:49] LABS: Basophils # (auto) 0.01 K/uL (0-0.2); Basophils % (auto) 0.1 %; Eosinophils # (auto) 0.01 K/uL (0-0.5); Eosinophils % (auto) 0.1 %; Hemoglobin 12.7 g/dL (14.0-18.0); Immature Granulocytes # (auto) 0.02 K/uL (0.00-0.02); Immature Granulocytes % (auto) 0.2 %; Lymphocytes # (auto) 1.27 K/uL (1.2-3.4); Lymphocytes % (auto) 10.7 %; Mean Corpuscular Hemoglobin 36.1 pg (25-34); Mean Corpuscular Hgb Conc 34.3 g/dL (32-36); Mean Corpuscular Volume 105.1 fL (80-100); Mean Platelet Volume 9.7 fL (7.4-10.4); Monocytes # (auto) 1.43 K/uL (0.11-0.59); Monocytes % (auto) 12.1 %; Neutrophils # (auto) 9.09 K/uL (1.4-6.5); Neutrophils % (auto) 76.8 %; Platelet Count 231 K/uL (130-400); RDW Coefficient of Variation 13.5 % (11.5-14.5); RDW Standard Deviation 51.9 fL (36.4-46.3); Red Blood Count 3.52 M/uL (4.7-6.1); White Blood Count 11.83 K/uL (4.8-10.8)
[2021-06-28 15:11] LABS: Adenovirus PCR Not Detected (NotDetected); Bordetella parapertussis PCR Not Detected (NotDetected); Bordetella pertussis PCR Not Detected (NotDetected); Chlamydia pneumoniae PCR Not Detected (NotDetected); Coronavirus 229E PCR Not Detected (NotDetected); Coronavirus CoV-2 (COVID19)PCR Not Detected (NotDetected); Coronavirus HKU1 PCR Not Detected (NotDetected); Coronavirus NL63 PCR Not Detected (NotDetected); Coronavirus OC43PCR Not Detected (NotDetected); Human Metapneumovirus PCR Not Detected (NotDetected); Influenza A PCR Not Detected (NotDetected); Influenza B PCR Not Detected (NotDetected); Mycoplasma pneumoniae PCR Not Detected (NotDetected); Parainfluenza Virus 1 PCR Not Detected (NotDetected); Parainfluenza Virus 2 PCR Not Detected (NotDetected); Parainfluenza Virus 3 PCR Not Detected (NotDetected); Parainfluenza Virus 4 PCR Not Detected (NotDetected); Respiratory Syncytial VirusPCR Not Detected (NotDetected); Rhinovirus/Enterovirus PCR Not Detected (NotDetected)
[2021-06-28 15:13] LABS: Appearance Urine Clear (Clear); Bacteria Urine Automated Negative (Negative); Bilirubin Urine Negative (Negative); Blood Urine 1+ (Negative); Color Urine Yellow; Glucose Urine UA Negative (Negative); Ketones Urine Trace (Negative); Leukocyte Esterase Urine 1+ (Negative); Nitrite Urine Negative (Negative); Protein Urine Trace (Negative); RBC Urine Automated 0-4 /hpf (0-4); Specific Gravity Urine 1.016 (1.000-1.030); Urobilinogen Urine Negative (Negative); pH Urine 5.5 (4.5-7.5)
[2021-06-28 15:17] LABS: INR 1.1 (0.9-1.1); Partial Thromboplastin Ratio 1.2; Partial Thromboplastin Time 32.1 Seconds (21.0-31.0); Prothrombin Time 11.9 Seconds (9.0-12.0)
[2021-06-28 15:19] LABS: Albumin Globulin Ratio 1.9 (0.9-2); Albumin Level 4.1 gm/dl (3.4-5.0); BUN Creatinine Ratio 15.8 (10-20); Bilirubin,Total 1.4 mg/dl (0.2-1.0); Calcium 8.9 mg/dl (8.5-10.1); Est GFR (African American) 85.7 ml/min; Globulin 2.2 gm/dl (2.5-4.0); Magnesium 1.8 mg/dl (1.7-2.4); Potassium 3.5 mmol/L (3.5-5.1); Total Protein 6.3 gm/dl (6.0-8.3)
[2021-06-28 15:42] LABS: Lyme Ab IgM w/WB Rflx Negative (Negative)
[2021-06-28 15:58] LABS: Lyme Ab IgG w/WB Rflx Positive (Negative)
--- NOTE | 2021-06-28 15:58 | CT Scan Report ---
ABDOMEN AND PELVIS CT WITHOUT CONTRAST CT DOSE: 298.95 mGy.cm HISTORY: Acute generalized abdominal pain with fever. History of multiple myeloma. fever, eval for o bs uropathy, GB TECHNIQUE: Multiaxial CT images of the abdomen and pelvis were performed without contrast. A dose lo wering technique was utilized adhering to the principles of ALARA. COMPARISON STUDY: CT abdomen and pelvis 05/15/2021, 05/14/2020. FINDINGS: Small pericardial effusion. Coronary artery calcifications. Suggestion of mild emphysema. R ight greater than left trace pleural effusions. Mild dependent subsegmental bibasilar atelectasis. Th ere is no pneumatosis or pneumoperitoneum. The unenhanced spleen, pancreas, gallbladder and adrenal g lands are unremarkable. Hepatic steatosis. Unremarkable left kidney. There are 2 nonobstructing calculi noted within the right kidney measuring up to 8 mm within the interpolar distribution posteriorly. Moderate to severe right-sided hydrourete ronephrosis with perinephric and periureteral inflammation. There are approximately 3 tiny calculi wi thin the proximal right ureter measuring up to 3 mm at the level of L3-L4. On the prior study there i s an 8 mm calculus within this region. On the prior study from 05/14/2020, ureteral stricture was note d within this area. Prostamegaly with urinary bladder wall thickening suggestive of chronic bladder o utlet obstruction. Atherosclerosis of the aorta without aneurysm. Mild nonspecific distal esophageal wall thickening. No bowel obstruction or bowel wall thickening. Tr milagros fluid tracks along the right pericolic gutter, likely secondary to aforementioned renal findings. Unremarkable soft tissues. The bones appear grossly intact. Degenerative changes of the spine, pelvi s and hips. Chronic appearing Schmorl's nodes of the lumbar spine are unchanged. No new lucent bone l esions are identified. Unchanged subtle lucent foci of the pelvis and proximal femora. Lumbar levosco liosis. IMPRESSION: 1. Moderate to severe right-sided hydroureteronephrosis is similar to 05/15/2021 study however demonst rates progressively worsened perinephric and periureteral inflammation. Correlate with urinalysis to exclude infection. 2. There are three calculi with proximal right ureter at the level of L3-L4 within an area of a previ ously described ureteral stricture. 3. Nonobstructing right nephrolithiasis. 4. Prostamegaly with findings suggestive of chronic bladder outlet obstruction. 5. No new lytic bone lesions are identified. 6. Trace pleural effusions. ACT 112: Negative or not required by law. The above report was generated using voice recognition software. It may contain grammatical, syntax o r spelling errors. Electronically signed by: Colin Wilson M.D. 06/28/2021 3:55 PM
--- NOTE | 2021-06-28 16:46 | History & Physical Report ---
Date of Service June 28, 2021 Assessment & Plan (1) Pyelonephritis: Plan: - Febrile with temp 102F, WBC 11.83, lactate and procalcitonin WNL. - Suspect etiology of infection is related, as patient recently had a stent removed 10 days ago. He has a history of biliary dyskinesia and T bili is up today, however patient without abdominal pain, acute nausea/vomiting. - CT A/P: Moderate to severe right-sided hydroureteronephrosis is similar to 05/15/2021 study however demonstrates progressively worsened perinephric and periureteral inflammation. - Blood and urine cultures ordered, pending. - ED provider discussed case with urology, no plans for emergent urologic procedures currently. Will place routine consult with urology so they may follow along with patient, appreciate their recommendations. - Started on cefepime in ED, will continue this and add on vancomycin given recent stent removal. Could consider switching to Zosyn for anaerobe coverage if there is indication that it is a GI source of infection. - Received 500 cc IVF bolus in ED, continue LR at 100 cc/hour. Normal EF on echo from last July. -Rotate Tylenol/ibuprofen for pain/fever, Toradol and morphine for moderate- severe pain. (2) Biliary dyskinesia: Plan: - Evaluated by Dr. Trujillo for this on 04/15, observation for now, patient instructed to call office to schedule cholecystectomy if he wishes. - T. bili 1.4, increased from previous labs. CT did not reveal acute findings, no acute changes to patient's chronic nausea. No abdominal pain, vomiting this week. - RUQ U/S for further evaluation. - Follow liver function on a.m. labs. (3) Atrial fibrillation: Plan: - Sinus rhythm with first-degree AV block (not new) today. - Continue digoxin, flecainide, and Eliquis. - Dig level in ED wnl. - Metoprolol trialed but ultimately had to d/c due to weakness, dizziness, orthostatic hypotension. - Echo in July 2020 with normal LV size, EF, no valvular abnormalities. (4) First degree atrioventricular block: Plan: - Seen on previous EKGs from last year. History of Lyme disease. - On telemetry. (5) Benign hypertension: Plan: - Continue losartan. (6) Hyperlipidemia: Plan: - Continue atorvastatin. (7) Multiple myeloma: Plan: - s/p auto stem cell transplant May 2020, on maintenance chemotherapy, next session this upcoming Saturday 07/01. - Acyclovir 800 mg BID for ppx. (8) Low back pain: Plan: - Chronic, worse this week in setting of worsening perinephric/periureteral inflammation. - No new lytic lesions seen on CT. - Rotate Tylenol/ibuprofen as needed for fever and pain, with morphine and toradol ordered prn for moderate-severe pain. (9) GERD (gastroesophageal reflux disease): Plan: - Continue PPI. Plan: - Admit to med/tele. - SCDs, Eliquis for VDT ppx. - Full Code. History of Present Illness Primary Care Provider: Guillermo Hilario DO Mr. Pizano is a 71-year-old male with a PMH significant for of multiple myeloma 1 year s/p autologous stem cell transplant on maintenance chemotherapy, obstructing kidney stone on 05/15 requiring stent placement + 10 days s/p stent removal, a fibb, HTN, HLD, and chronic low back pain who presents today for evaluation of fever and fatigue. Early this week, he began to have a flare of his back pain, notes it is not much different in character or severity from his usual pain, describes it as low midline, aching, and constant for several hours when it occurs. He started taking Tylenol for it, which has helped. He's had chills with the back pain, however no fever (although was taking Tylenol for pain). On Wednesday, he began to feel more fatigued, and yesterday he "felt like he got by a truck" with extreme fatigue, and has been in bed ever since then. He has also had a mild headache since then without neck stiffness or confusion, is alleviated with Tylenol, visible chills, and a fever this morning of 101.2 at home. He is also noted some increased urinary frequency, but without dysuria, hematuria, or difficulty voiding. Has a history of Lyme disease, and he does hike, he and his have removed some ticks from themselves and their cat over the past 2 months, but states they check themselves frequently on days when they have been in wooded areas and do not believe they have had any tick on them for more than a few hours. No rash. He is otherwise without chest pain, palpitations, SOB, cough, congestion, abdominal pain, or change in mild baseline nausea he has had over the past several months in the setting of known GB disease. In ED, febrile with a temperature of 102, hypertensive 159/74, other vital signs within normal limits stable, is on room air. Labs significant for WBC 11.83, lactate 1.1, procalcitonin 0.32. Hgb 12.7 (baseline), glucose 112, T bili 1.4. UA with trace protein and ketones, 1+ blood, leuk esterase, 10-30 WBCs. Dig level within normal limits. Bio fire panel positive for Lyme disease IgG antibody, negative IgM. CT A/P showed moderate to severe right-sided hydroureteronephrosis is similar to 05/15/2021 study however demonstrates progressively worsened perinephric and periureteral inflammation. There are three calculi with proximal right ureter at the level of L3-L4 within an area of a previously described ureteral stricture. Nonobstructing right nephrolithiasis. Prostamegaly with findings suggestive of chronic bladder outlet obstruction. No new lytic bone lesions are identified. Trace pleural effusions. Patient received cefepime, IVF, and Tylenol in ED. Case was discussed with urology who did not suggest any need for emergent intervention. Hospitalist service was consulted for further evaluation and workup. Allergies Allergy/AdvReac Type Severity Reaction Status Date / Time grass pollen Allergy Unknown hay fever Verified 06/28/21 16:22 symptoms Home Medications Medication Instructions Recorded Confirmed Type cholecalciferol (vitamin D3) 25 1,000 unit PO QAM 02/02/20 06/28/21 History mcg (1,000 unit) capsule apixaban 5 mg tablet (Eliquis) 5 mg PO BID #60 tab 02/09/20 06/28/21 Rx acyclovir 800 mg tablet 800 mg PO BID 07/01/20 06/28/21 History atorvastatin 20 mg tablet 10 mg PO QPM tab 07/03/20 06/28/21 History bortezomib 3.5 mg injection powder 1 mg SUBCUT .EVERY 2 WEEKS ea 11/14/20 06/28/21 History for solution (Velcade) denosumab 120 mg/1.7 mL (70 mg/mL) 120 mg SUBCUT MONTHLY 04/16/21 06/28/21 History subcutaneous solution (Xgeva) digoxin 125 mcg (0.125 mg) tablet 125 mcg PO QAM 05/22/21 06/28/21 History flecainide 50 mg tablet 50 mg PO BID 05/22/21 06/28/21 History losartan 100 mg tablet 100 mg PO QPM 05/22/21 06/28/21 History pantoprazole 40 mg tablet,delayed 40 mg PO QAM 05/22/21 06/28/21 History release Past Med/Surg History Medical History (Updated 06/28/21 @ 18:18 by Sadaf Mancia PA-C) Atrial fibrillation with rapid ventricular response 119bpm on presentation to ED 01/09/20. Now rate controlled. Has been on Eliquis since. 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 Kidney stones Lyme disease REMOTE HX, no current issues MGUS (monoclonal gammopathy of unknown significance) PT NOT SURE Multiple myeloma hx stem cell transplant 1 yr ago On anticoagulant therapy on eliquis daily Surgical History (Updated 06/28/21 @ 17:29 by Deepak Cruz MD) History of cardioversion (~02/09/20) unsucessful afib has resolved on own since History of colonoscopy History of cystoscopy multiple--last 08/07/2019 with stent placed History of stem cell transplant june 06 2020 - yosef History of tooth extraction WISDOM Family History Father Myocardial infarction Hypertension Grandmother Diabetes Sister Breast cancer Other No family history of adverse response to anesthesia Denies family history of Ovarian cancer Prostate cancer Colorectal cancer Social History Smoking Status: Never smoker Tobacco Type: Cigarettes packs per day: 1; Years Smoked: 20; Second Hand Exposure: Yes (parents smoked); Hx Alcohol Use: Yes Alcohol type: beer Alcohol Intake Frequency: 4 or More x per/Week Alcohol Intake Frequency Comment: 1-2 a night Hx Substance Use: Yes Non-Prescribed Medications: IV Drugs Substance Use Type Other:: SMOKE Preferred Language: Mozambican Communication Ability: Effective Visual Impairment: No Limitations 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 Required: No Beliefs That Will Affect Care: None marital status: Current Living Situation: Spouse Current Living Situation Comment: with current occupational status: retired How many Children do You have: 1 Feels Safe at Home: Yes caffeine: Yes Dental Care, Regularly: Yes Physical Activity Frequency: 3-4 Times per Week Seatbelt Use: always Sunscreen Use: Yes Assistive Devices: Glasses Review of Systems Review of Systems: Constitutional: reports fever/chills, fatigue; no weakness, myalgias, anorexia, night sweats Eyes: No diplopia, no worsening or blurred vision ENT: normal hearing, no trouble swallowing Respiratory: No cough, sputum, dyspnea at rest or on exertion Cardiovascular: No chest pain, tightness or palpitations Abdomen: intermittent nausea for several months after meals, no acutely worse; No pain, vomiting, diarrhea or constipation : reports increased urgency/frequency this week with near incontinent episodes; Denies dysuria, hematuria, urinary retention Musculoskeletal: No joint pain, calf pain, swelling Neurologic: No focal weakness, numbness/tingling, or balance problems Psychiatric: No anxiety or depression Skin: No rash or itch Physical Exam Physical Exam: General: awake, alert, no apparent distress Head: Normocephalic, atraumatic ENT: PERRL, EOMI, no pharyngeal exudate, mucous membranes moist Chest: Clear to auscultation, on room air, no adventitious breath sounds Cardiac: Regular rate and rhythm, no murmur, no JVD, normal peripheral pulses, good capillary refill Abdominal: NABS x 4 quadrants, soft, nontender to palpation, no rebound, guarding or tenderness Extremities: Normal inspection, no peripheral edema or erythema, calfs nontender to palpation Psych: Normal mood and affect Neuro: AAO x 3, strength intact bilaterally and rated 5/5, no motor deficits, speech is clear, no peripheral sensory deficits Skin: no rash or erythema Results & Data Results & Data ([facility]) Vital Signs (Past 12 Hours) Vital Signs Temp Pulse Resp BP Pulse Ox 06/28/21 15:15 82 21 159/74 H 96 06/28/21 15:00 95 06/28/21 14:45 81 96 06/28/21 14:30 83 21 96 06/28/21 14:29 38.9 C H 06/28/21 14:15 82 19 95 06/28/21 14:13 82 96 06/28/21 13:02 37.9 C H 85 18 131/76 96 Laboratory Results Abnormal lab results 06/28/21 06/28/21 06/28/21 Range/Units 13:54 14:24 14:24 WBC 11.83 H (4.8-10.8) K/uL RBC 3.52 L (4.7-6.1) M/uL Hgb 12.7 L (14.0-18.0) g/dL Hct 37.0 L (42-52) % MCV 105.1 H (80-100) fL MCH 36.1 H (25-34) pg RDW Std Deviation 51.9 H (36.4-46.3) fL Neut # (Auto) 9.09 H (1.4-6.5) K/uL Edmonson # (Auto) 1.43 H (0.11-0.59) K/uL APTT (21.0-31.0) Seconds Glucose (70-99(Fasting)) mg/dl Total Bilirubin (0.2-1.0) mg/dl Globulin (2.5-4.0) gm/dl Urine Protein Trace H (Negative) Urine Ketones Trace H (Negative) Urine Blood 1+ H (Negative) Ur Leukocyte Esterase 1+ H (Negative) Urine WBC (Auto) 10-30 H (0-5) /hpf U Epithel Cells (Auto) 5-10 H (0-5) /lpf Lyme Disease IgG Ab Positive A (Negative) 06/28/21 06/28/21 Range/Units 14:24 14:24 WBC (4.8-10.8) K/uL RBC (4.7-6.1) M/uL Hgb (14.0-18.0) g/dL Hct (42-52) % MCV (80-100) fL MCH (25-34) pg RDW Std Deviation (36.4-46.3) fL Neut # (Auto) (1.4-6.5) K/uL Edmonson # (Auto) (0.11-0.59) K/uL APTT 32.1 H (21.0-31.0) Seconds Glucose 112 H (70-99(Fasting)) mg/dl Total Bilirubin 1.4 H (0.2-1.0) mg/dl Globulin 2.2 L (2.5-4.0) gm/dl Urine Protein (Negative) Urine Ketones (Negative) Urine Blood (Negative) Ur Leukocyte Esterase (Negative) Urine WBC (Auto) (0-5) /hpf U Epithel Cells (Auto) (0-5) /lpf Lyme Disease IgG Ab (Negative) Diagnostic Findings Abdomen/Pelvis CT 06/28/21 13:[address] WITHOUT CONTRAST CT DOSE: 298.95 mGy.cm HISTORY: Acute generalized abdominal pain with fever. History of multiple myelom a. fever, eval for obs uropathy, GB TECHNIQUE: Multiaxial CT images of the abdomen and pelvis were performed without contrast. A dose lowering technique was utilized adhering to the principles of ALARA. COMPARISON STUDY: CT abdomen and pelvis 05/15/2021, 05/14/2020. FINDINGS: Small pericardial effusion. Coronary artery calcifications. Suggestion of mild emphysema. Right greater than left trace pleural effusions. Mild dependent subsegmental bibasilar atelectasis. There is no pneumatosis or pneumoperitoneum. The unenhanced spleen, pancreas, gallbladder and adrenal glands are unremarkable. Hepatic steatosis. Unremarkable left kidney. There are 2 nonobstructing calculi noted within the right kidney measuring up to 8 mm within the interpolar distribution posteriorly. Moderate to severe right-sided hydroureteronephrosis with perinephric and periureteral inflammation. There are approximately 3 tiny calculi within the proximal right ureter measuring up to 3 mm at the level of L3-L4. On the prior study there is an 8 mm calculus within this region. On the prior study from 05/14/2020, ureteral stricture was noted within this area. Prostamegaly with urinary bladder wall thickening suggestive of chronic bladder outlet obstruction. Atherosclerosis of the aorta without aneurysm. Mild nonspecific distal esophageal wall thickening. No bowel obstruction or bowel wall thickening. Trace fluid tracks along the right pericolic gutter, likely secondary to aforementioned renal findings. Unremarkable soft tissues. The bones appear grossly intact. Degenerative changes of the spine, pelvis and hips. Chronic appearing Schmorl's nodes of the lumbar spine are unchanged. No new lucent bone lesions are identified. Unchanged subtle lucent foci of the pelvis and proximal femora. Lumbar levoscoliosis. IMPRESSION: 1. Moderate to severe right-sided hydroureteronephrosis is similar to 05/15/2021 study however demonstrates progressively worsened perinephric and periureteral inflammation. Correlate with urinalysis to exclude infection. 2. There are three calculi with proximal right ureter at the level of L3-L4 within an area of a previously described ureteral stricture. 3. Nonobstructing right nephrolithiasis. 4. Prostamegaly with findings suggestive of chronic bladder outlet obstruction. 5. No new lytic bone lesions are identified. 6. Trace pleural effusions. ACT 112: Negative or not required by law. The above report was generated using voice recognition software. It may contain grammatical, syntax or spelling errors. Electronically signed by: Colin Wilson M.D. 06/28/2021 3:55 PM Chest X-Ray 06/28/21 13:39 XR chest 1V portable HISTORY: 71 years-old Male SEPSIS acute sepsis COMPARISON: Chest radiographs 05/20/2021 TECHNIQUE: Portable AP view of the chest FINDINGS: The cardiomediastinal and hilar silhouettes are within normal limits. Unchanged mild diffuse interstitial coarsening. No pneumothorax, pleural effusion, airspace consolidation or overt pulmonary edema. Degenerative changes of the shoulders and spine. IMPRESSION: No acute process. ACT 112: Negative or not required by law. The above report was generated using voice recognition software. It may contain grammatical, syntax or spelling errors. Electronically signed by: Colin Wilson M.D. 06/28/2021 2:15 PM ECG Additional Comments: Sinus rhythm with 1st degree A-V block Left axis deviation. When compared with ECG of 01-JUL-2020 09:58, Sinus rhythm has replaced Atrial fibrillation ST no longer depressed in Inferior leads. Code Status & VTE Plan Code Status Full Code. Supervising Physician Co-Signing Physician Notes Chart reviewed and I did discuss with the ROSEMARIE. This is a 71-year-old male who presented with fever and fatigue. He had a recent cystoscopy with stent placement, stent was subsequently removed approximate 10 days ago as an outpatient. Patient had subsequent fever and chills along with some low back pain. This continue to worsen he presented to the emergency room. He has UA and CT findings consistent with pyelonephritis. Plan to admit for further treatment. Okay to continue cefepime as given in the emergency room. We will ask urology to evaluate further recommendations. Patient does have a question of chronic cholecystitis, CT of the abdomen was negative but he did have a mildly elevated total bili which may be metabolic from his infectious process. Nonetheless, will check a right upper quadrant ultrasound to ensure there is no acute component. PG Care Time/CCT Total # of Minutes Spent Total Time Spent with Patient: Total time spent is greater than 50% in coordination of care (as documented) at patient's floor/unit and/or counseling patient: Coding Level of Care Code 39734 Initial Inpt Care Lvl 3 Diagnoses First degree atrioventricular block I44.0 Atrial fibrillation I48.19 Atrial fibrillation type: persistent (not longstanding) Benign hypertension I10 Hyperlipidemia E78.5 Hyperlipidemia type: unspecified Multiple myeloma C90.00 Multiple myeloma remission status: unspecified Biliary dyskinesia K82.8 Low back pain M54.50 Pyelonephritis N12 GERD (gastroesophageal reflux disease) K21.9 (1) Atrial fibrillation Atrial fibrillation type: persistent (not longstanding) Qualified Code(s): I48.19 - Other persistent atrial fibrillation (2) Hyperlipidemia Hyperlipidemia type: unspecified Qualified Code(s): E78.5 - Hyperlipidemia, unspecified (3) Multiple myeloma Multiple myeloma remission status: unspecified Qualified Code(s): C90.00 - Multiple myeloma not having achieved remission
[2021-06-28] MEDS ORDERED: IBUPROFEN 200 MG TAB PO STA (18:10)
[2021-06-28] MEDS ORDERED: IBUPROFEN 200 MG TAB PO ONE (18:15)
[2021-06-28] MEDS ORDERED: PROMETHAZINE HCL 12.5 MG in SODIUM CHLORIDE 0.9% 50 ML IV PRN (19:34)
[2021-06-28] MEDS ORDERED: POLYETHYLENE (MIRALAX) 17 GM PACK PO PRN (19:34)
[2021-06-28] MEDS ORDERED: MoRPHine SULFATE 4 MG/ML 1 ML CARP\\VIAL IV PRN (19:34)
[2021-06-28] MEDS ORDERED: VANCOMYCIN HCL 1,000 MG in SODIUM CHLORIDE 0.9% 500 ML IV SCH (19:34)
[2021-06-28] MEDS ORDERED: VANCOMYCIN CONSULT ACTIVE PRN (19:34)
[2021-06-28] MEDS ORDERED: VANCOMYCIN HCL 1,250 MG in SODIUM CHLORIDE 0.9% 500 ML IV ONE (19:34)
[2021-06-28] MEDS ORDERED: MoRPHine SULFATE 2 MG/ML CARP IV PRN (19:34)
[2021-06-28] MEDS ORDERED: KETOROLAC TROMETHAMINE 15 MG/ML VIAL IV PRN (19:34)
[2021-06-28] MEDS ORDERED: ONDANSETRON INJ 2 MG/ML 2 ML VIAL IV PRN (19:34)
[2021-06-28] MEDS ORDERED: ACETAMINOPHEN 325 MG TAB PO PRN (19:34)
[2021-06-28] MEDS ORDERED: VANCOMYCIN HCL 1,500 MG in SODIUM CHLORIDE 0.9% 500 ML IV STA (19:53)
--- NOTE | 2021-06-28 19:56 | Ultrasound Report ---
US liver HISTORY: 71 years-old Male abdominal pain with fever acute right upper quadrant abdominal pain COMPARISON: CT abdomen and pelvis of same day TECHNIQUE: Multiple real-time sonographic images of the abdominal right upper quadrant were obtained assessing grayscale appearance and color flow FINDINGS: The pancreas is partially obscured by bowel gas. Hepatic steatosis. No evidence of cirrhosis or hepat ic mass. The liver measures up to 18.4 cm in length. Mild fatty sparing near the carmen hepatis. Trace gallbladder sludge without shadowing cholelithiasis, wall thickening or pericholecystic fluid. Negat whitney sonographic Howell's sign. Normal common bile duct, 6 mm. Right-sided hydroureteronephrosis redemonstrated. IMPRESSION: 1. Right-sided hydronephrosis redemonstrated. 2. Hepatic steatosis. 3. Trace gallbladder sludge without cholelithiasis or sonographic evidence of acute cholecystitis. 4. No biliary ductal dilation. ACT 112: Negative or not required by law. The above report was generated using voice recognition software. It may contain grammatical, syntax o r spelling errors. Electronically signed by: Colin Wilson M.D. 06/28/2021 7:55 PM
[2021-06-28] MEDS: LACTATED RINGER'S 1,000 ML IV SCH (21:01)
[2021-06-28] MEDS: ACYCLOVIR 400 MG TAB PO SCH (21:02)
[2021-06-28] MEDS: LOSARTAN POTASSIUM 50 MG TAB PO SCH (21:03)
[2021-06-28] MEDS: FLECAINIDE ACETATE 100 MG TABLET PO SCH (21:03)
[2021-06-28] MEDS: ATORVASTATIN 10 MG TAB PO SCH (21:03)
[2021-06-28] MEDS: APIXABAN 5 MG TABLET PO SCH (21:03)
--- NOTE | 2021-06-28 21:30 | Urology Consultation ---
Date of Consultation June 28, 2021 Assessment & Plan (1) Pyelonephritis: The patient has been admitted by the hospitalist service. His care plan has proceeded as follows: Patient is being hydrated with intravenous fluids He has been given antibiotics in the form of cefepime and vancomycin. These antibiotic should be continued until patient has culture results available at which time his antibiotics to be further tailored. Of note the patient did have urine and blood cultures sent both of which are pending We will make the patient n.p.o. after midnight until seen by urology attending in the morning in the event the patient would need a cystoscopy History of Present Illness Reason for Consultation: Hydronephrosis Attending Physician: Bijan Marie DO History of Present Illness This is a 71-year-old male with a history of multiple myeloma who had an autologous stem cell transplant approximately 1 year ago and the patient is on maintenance chemotherapy. He was noted to have an obstructing kidney stone on 317 which required a stent placement. Patient had his stent removal approximately 10 days ago and was initially doing well. Earlier this week the patient noted that he was having some nonspecific back pain however he also began having chills along with fever. He does admit to some intermittent dysuria. He also notes urinary frequency. He denies any nausea or vomiting. He denies any abdominal pain. He also denies any hematuria. He notes that when he urinates he feels as though he can empty his bladder completely. Because of the symptoms he presented to the emergency department. In the emergency department the patient had a CT scan of the abdomen and pelvis. This study showed that he had moderate to severe right-sided hydroureteronephrosis which was similar to what was noted on 05/15/2021. Patient did have some perinephric inflammation consistent with pyelonephritis. He was noted to have 3 stones in the proximal right ureter. A chest x-ray showed no evidence of pneumonia. A liver ultrasound showed trace gallbladder sludge without evidence of cholecystitis. Labs include a CBC her white blood cell count was 11.8. His hemoglobin and hematocrit were 12.7 and 37.0. Platelet count was normal. Chemistry profile showed sodium, potassium, BUN, and creatinine were all normal. A urinalysis showed 10-30 white blood cells per high-power field. There was negative nitrites and 1+ leukocyte Estrace and no bacteria. He did have a COVID test performed which was negative. Of note the patient did have a Lyme IgG level checked which was positive. At the time of my interview he was resting comfortably in bed and he was in no distress. Allergies Allergy/AdvReac Type Severity Reaction Status Date / Time grass pollen Allergy Unknown hay fever Verified 06/28/21 16:22 symptoms Home Medications Medication Instructions Recorded Confirmed Type cholecalciferol (vitamin D3) 25 1,000 unit PO QAM 02/02/20 06/28/21 History mcg (1,000 unit) capsule apixaban 5 mg tablet (Eliquis) 5 mg PO BID #60 tab 02/09/20 06/28/21 Rx acyclovir 800 mg tablet 800 mg PO BID 07/01/20 06/28/21 History atorvastatin 20 mg tablet 10 mg PO QPM tab 07/03/20 06/28/21 History bortezomib 3.5 mg injection powder 1 mg SUBCUT .EVERY 2 WEEKS ea 11/14/20 06/28/21 History for solution (Velcade) denosumab 120 mg/1.7 mL (70 mg/mL) 120 mg SUBCUT MONTHLY 04/16/21 06/28/21 History subcutaneous solution (Xgeva) digoxin 125 mcg (0.125 mg) tablet 125 mcg PO QAM 05/22/21 06/28/21 History flecainide 50 mg tablet 50 mg PO BID 05/22/21 06/28/21 History losartan 100 mg tablet 100 mg PO QPM 05/22/21 06/28/21 History pantoprazole 40 mg tablet,delayed 40 mg PO QAM 05/22/21 06/28/21 History release Patient History Medical History Atrial fibrillation with rapid ventricular response 119bpm on presentation to ED 01/09/20. Now rate controlled. Has been on Eliquis since. 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 Kidney stones Lyme disease REMOTE HX, no current issues MGUS (monoclonal gammopathy of unknown significance) PT NOT SURE Multiple myeloma hx stem cell transplant 1 yr ago On anticoagulant therapy on eliquis daily Surgical History History of cardioversion (~02/09/20) unsucessful afib has resolved on own since History of colonoscopy History of cystoscopy multiple--last 08/07/2019 with stent placed History of stem cell transplant june 06 2020 - yosef History of tooth extraction WISDOM Family History Father Myocardial infarction Hypertension Grandmother Diabetes Sister Breast cancer Other No family history of adverse response to anesthesia Denies family history of Ovarian cancer Prostate cancer Colorectal cancer Social History Smoking Status: Never smoker Tobacco Type: Cigarettes packs per day: 1; Years Smoked: 20; Second Hand Exposure: Yes (parents smoked); Hx Alcohol Use: Yes Alcohol type: beer Alcohol Intake Frequency: 4 or More x per/Week Alcohol Intake Frequency Comment: 1-2 a night Hx Substance Use: Yes Non-Prescribed Medications: IV Drugs Substance Use Type Other:: SMOKE Preferred Language: Mozamb[place] Communication Ability: Effective Visual Impairment: No Limitations Photo Technician Required: No Beliefs That Will Affect Care: None marital status: Current Living Situation: Spouse Current Living Situation Comment: with current occupational status: retired How many Children do You have: 1 Feels Safe at Home: Yes caffeine: Yes Dental Care, Regularly: Yes Physical Activity Frequency: 3-4 Times per Week Seatbelt Use: always Sunscreen Use: Yes Assistive Devices: Glasses Review of Systems Constitutional: + fever, + chills and + fatigue Eyes: no diplopia Ear, Nose, Mouth, Throat: no ear pain Respiratory: no cough and no dyspnea Cardiovascular: no chest pain Gastrointestinal: no abdominal pain, no nausea and no vomiting Genitourinary: + as per Subjective / HPI Musculoskeletal: + back pain Integumentary: no rash Neurologic: no localized weakness Physical Exam Constitutional: WD/WN, vitals as above Eyes: no conjunctival abnormality ENMT: Ears: no hearing impairment Mouth: no oropharynx abnormality Neck: trachea midline Respiratory: normal respiratory effort; no respiratory distress and no labored breathing Cardiovascular: Rate/Rhythm: regular rate and regular rhythm Gastrointestinal (Abdomen): Soft, nontender Musculoskeletal: No calf tenderness Skin: no rashes Neurologic: moves all extremities Psychiatric: A+Ox3, euthymic affect Genitourinary: no CVA tenderness Results & Data ([facility]) Vital Signs (Past 12 Hours) Vital Signs Temp Pulse Resp BP Pulse Ox 06/28/21 18:00 37.9 C H 98 H 20 98 06/28/21 17:30 89 98 06/28/21 17:00 75 22 157/63 H 97 06/28/21 16:30 75 19 95 06/28/21 16:00 78 23 95 06/28/21 15:30 81 21 96 06/28/21 15:15 82 21 159/74 H 96 06/28/21 15:00 95 06/28/21 14:45 81 96 06/28/21 14:30 83 21 96 06/28/21 14:29 38.9 C H 06/28/21 14:15 82 19 95 06/28/21 14:13 82 96 06/28/21 13:02 37.9 C H 85 18 131/76 96 PG Care Time/CCT Total # of Minutes Spent Total Time Spent with Patient: Total time spent is greater than 50% in coordination of care (as documented) at patient's floor/unit and/or counseling patient: Coding Level of Care Code 55276 Inpt Consult Level 5 Diagnoses Pyelonephritis N12
[2021-06-29] MEDS: CEFEPIME 1,000 MG in SYRINGE 0 ML IV SCH ×2 (02:29→16:45)
[2021-06-29] MEDS: LACTATED RINGER'S 1,000 ML IV SCH ×2 (07:01→16:45)
--- NOTE | 2021-06-29 07:55 | Pharmacy Report ---
Pharmacy Vanc AUC Short Note - Date of Service June 29, 2021 - Assessment & Plan Assessment 71 year old M presented with fever and fatigue, possible pyelonephritis. Started on empiric vancomycin + cefepime. Per H&P, PMH significant for of multiple myeloma 1 year s/p autologous stem cell transplant on maintenance chemotherapy, obstructing kidney stone on 05/15 requiring stent placement + 10 days s/p stent removal, a fibb, HTN, HLD, and chronic low back pain. BC and urine culture pending Plan Vancomycin * Loading dose: 1500 mg IV * Maintenance dose: 750 mg (12 mg/kg) IV every 12 hours * Regimen is predicted to achieve target AUC/LANDEN of 400-600 mg/L.hr and may be associated with a 14 % risk of nephrotoxicity * Trough level will be ordered if vanco is continued beyond 48 hours - currently ordered as empiric w/ 48 hr stop Pharmacy will continue to follow and will adjust dose/frequency as necessary. Thank you. AUC/LANDEN is the preferred PK/PD target for vancomycin and is associated with decreased risk of nephrotoxicity compared to traditional trough targets
[2021-06-29] MEDS: FLECAINIDE ACETATE 100 MG TABLET PO SCH ×2 (08:11→20:54)
[2021-06-29] MEDS: PANTOprazole 40 MG TAB PO SCH (08:11)
[2021-06-29] MEDS: APIXABAN 5 MG TABLET PO SCH ×2 (08:11→20:53)
[2021-06-29] MEDS: ACYCLOVIR 400 MG TAB PO SCH ×2 (08:11→20:53)
[2021-06-29] MEDS: CHOLECALCIFEROL 1,000 UNITS 25 MCG TAB PO SCH (08:11)
[2021-06-29] MEDS: DIGOXIN 0.125 MG TAB PO SCH (08:11)
[2021-06-29] MEDS: ACETAMINOPHEN 325 MG TAB PO PRN ×2 (08:17→16:45)
[2021-06-29 08:31] LABS: Basophils # (auto) 0.01 K/uL (0-0.2); Basophils % (auto) 0.1 %; Eosinophils # (auto) 0.02 K/uL (0-0.5); Eosinophils % (auto) 0.2 %; Hematocrit (blood only) 30.9 % (42-52); Hemoglobin 10.6 g/dL (14.0-18.0); Immature Granulocytes # (auto) 0.02 K/uL (0.00-0.02); Immature Granulocytes % (auto) 0.2 %; Lymphocytes # (auto) 1.07 K/uL (1.2-3.4); Lymphocytes % (auto) 12.8 %; Mean Corpuscular Hemoglobin 35.7 pg (25-34); Mean Corpuscular Hgb Conc 34.3 g/dL (32-36); Mean Platelet Volume 9.3 fL (7.4-10.4); Monocytes # (auto) 1.01 K/uL (0.11-0.59); Neutrophils # (auto) 6.26 K/uL (1.4-6.5); Neutrophils % (auto) 74.7 %; Platelet Count 188 K/uL (130-400); RDW Coefficient of Variation 13.5 % (11.5-14.5); RDW Standard Deviation 51.1 fL (36.4-46.3); Red Blood Count 2.97 M/uL (4.7-6.1); White Blood Count 8.39 K/uL (4.8-10.8)
[2021-06-29 08:52] LABS: Albumin Globulin Ratio 1.7 (0.9-2); Albumin Level 3.3 gm/dl (3.4-5.0); BUN Creatinine Ratio 18.4 (10-20); Calcium 8.3 mg/dl (8.5-10.1); Creatinine Clr Calc Pharmacy 73.6 ml/min; Est GFR (African American) 99.9 ml/min; Est GFR (Non-African American) 86.2 ml/min; Globulin 1.9 gm/dl (2.5-4.0); Magnesium 1.6 mg/dl (1.7-2.4); Potassium 3.5 mmol/L (3.5-5.1); Total Protein 5.2 gm/dl (6.0-8.3)
[2021-06-29] MEDS: VANCOMYCIN HCL 750 MG in SODIUM CHLORIDE 0.9% 250 ML IV SCH ×2 (08:58→20:53)
--- NOTE | 2021-06-29 12:27 | Hospitalist Progress Note ---
Date of Service June 29, 2021 Assessment & Plan (1) Pyelonephritis: Plan: Mr. Pizano is a 71 yo gentleman who was admitted with sepsis, secondary to acute right sided pyelonephritis. Of note, patient had obstructive R kidney stone visualized on 05/15/21 at which time a R ureteral stent was placed. He subsequently underwent stone treatment - R ureteral stent was then removed ~ 10 days prior to admission. - SIRS criteria met on admission. - Source thought to be R kidney infection. - Respiratory viral panel neg. - Not having diarrhea. - CXR without acute process. - no evidence of cellulitis on exam - tick borne testing ordered - Lyme IgG positive, although patient reports history of disease. Await Western blot to assess for acute illness. - CT abdomen showed moderate to severe R hydronephrosis with worsening of perinephric stranding compared to film on 05/15/21. There are also 3 new stones in the R proximal ureter. - WBC elevated to 11.8 on admission, now normalized - Urine culture growing staph, but not yet finalized - blood cultures showing no growth to date - empirically started on IV vanco (MRSA coverage indicated due to recent stent placement) + Cefepime (gram - coverage). Narrow when cultures finalize - urology following (2) Hydronephrosis concurrent with and due to calculi of kidney and ureter: Plan: - 3 new stones identified in R proximal ureter - although not obstructive, likely providing some resistant to urine flow - composition analysis run on previous stone - calcium oxalate. consider lower sodium diet and initiation of K-citrate - continue IV hydration + flomax - suspect patient will ultimately need repeat uretal stent placement - tylenol, toradol and morphine ordered for pain management prn (3) Hyperlipidemia: Plan: - continue home dose atorvastatin (4) Atrial fibrillation: Plan: - on anticoagulation for stroke risk reduction - on flecainide and digoxin for rhythm control (5) GERD (gastroesophageal reflux disease): Plan: - continue protonix (6) Benign hypertension: Plan: - continue home dose losartan Diet: Regular DVT ppx: On eliquis Dispo: Med/Surg Code: Full Admission and Anticipated Discharge Date Admission Date: June 28, 2021 Supervising Physician Co-Signing Physician Notes I personally examined the patient and verified all armando points of history and exam, discussed case, and agree with decision making with Dr Ocampo. Back pain feeling better. Feeling better overall. Vitals noted, in general he is awake and alert pleasant no distress. HEENT normocephalic atraumatic mucous membranes moist. Breathing unlabored no accessory muscle use good effort. Skin shows no rashes no pallor or icterus. Pyelonephritisappears to be related to ureterolithiasis/possible stricturejust had stents removed not long ago, urology following no decision yet on interventional versus conservative care. continue current abx, supportive care. otherwise as above Subjective No acute events overnight. Reports feeling better, although not totally back to baseline. Ambulating around room without difficulty. Review of Systems Review of Systems: All systems reviewed & are unremarkable except as noted in HPI & below Physical Exam 2 Constitutional: WD/WN, vitals as above cooperative and comfortable; no acute distress Eyes: + anicteric sclerae ENMT: external ear and nose normal, oropharynx normal Neck: normal visual inspection and trachea midline Respiratory: normal respiratory effort, lungs clear to auscultation no cough Cardiovascular: Rate/Rhythm: regular rate and regular rhythm Heart Sounds: normal S1, normal S2 and + murmur (systolic ejection ) Extremities: no pedal edema Gastrointestinal (Abdomen): normal bowel sounds, soft, nontender, no hepatosplenomegaly no CVA tenderness Musculoskeletal: Head/Neck/Chest: normocephalic and head atraumatic Skin: no rashes, warm and dry Psychiatric: A+Ox3, euthymic affect Results & Data Results & Data ([facility]) Vital Signs (Past 12 Hours) Vital Signs Temp Pulse Pulse Resp BP Pulse Ox 06/29/21 11:38 36.8 C 68 131/56 L 96 06/29/21 07:47 91 H 06/29/21 07:42 37.5 C 80 147/67 H 95 06/29/21 03:30 37.9 C H 76 18 138/66 96 Resident Activity Tracking Resident Involvement: Resident Care Provided Care Provided: Adult Hospital Medicine (1) Atrial fibrillation Atrial fibrillation type: persistent (not longstanding) Qualified Code(s): I48.19 - Other persistent atrial fibrillation (2) Hyperlipidemia Hyperlipidemia type: unspecified Qualified Code(s): E78.5 - Hyperlipidemia, unspecified
[2021-06-29] MEDS: TAMSULOSIN HCL 0.4 MG CAP PO SCH (16:45)
--- NOTE | 2021-06-29 17:16 | Billing Data ---
Date of Service June 29, 2021 Coding Level of Care Code 24667 Subseq Hosp Care Lvl 3
[2021-06-29] MEDS: MAGNESIUM CHLORIDE 64MG DELAYED REL TAB PO SCH (18:39)
[2021-06-29] MEDS: ATORVASTATIN 10 MG TAB PO SCH (20:53)
[2021-06-29] MEDS: LOSARTAN POTASSIUM 50 MG TAB PO SCH (20:54)
[2021-06-30] MEDS: CEFEPIME 1,000 MG in SYRINGE 0 ML IV SCH ×2 (03:27→15:18)
[2021-06-30] MEDS: LACTATED RINGER'S 1,000 ML IV SCH ×2 (03:30→12:53)
[2021-06-30] MEDS ORDERED: LOPERAMIDE HCL 2 MG CAP PO STA (03:44)
--- NOTE | 2021-06-30 06:34 | Electrocardiogram Report ---
Test Reason : Blood Pressure : / mmHG Vent. Rate : 080 BPM Atrial Rate : 080 BPM P-R Int : 216 ms QRS Dur : 098 ms QT Int : 402 ms P-R-T Axes : 064 -30 079 degrees QTc Int : 463 ms Sinus rhythm with 1st degree A-V block Left axis deviation Abnormal ECG When compared with ECG of 01-JUL-2020 09:58, Sinus rhythm has replaced Atrial fibrillation ST no longer depressed in Inferior leads Confirmed by Kilo Cuevas ([id number]) on 06/30/2021 6:33:41 AM Referred By: Confirmed By:Kilo Cuevas
--- NOTE | 2021-06-30 06:52 | Hospitalist Progress Note ---
Date of Service June 30, 2021 Assessment & Plan (1) Pyelonephritis: Plan: 71 year old male w/ multiple myeloma, afib, HTN, HLD, and chronic low back pain who presents w/ R pyelonephritis w/ recent R ureteral stent removal 10 days prior to admission. - SIRS criteria met on admission (temp and wbc), since resolved - CT abdomen showed moderate to severe R hydronephrosis with worsening of perinephric stranding compared to film on 05/15/21. Unremarkable left kidney. There are 2 nonobstructing calculi noted within the right kidney measuring up to 8 mm within the interpolar distribution posteriorly. Moderate to severe right- sided hydroureteronephrosis with perinephric and periureteral inflammation. There are approximately 3 tiny calculi within the proximal right ureter measuring up to 3 mm at the level of L3-L4. - Urine culture grew pansensitive coag neg staph - 06/28 blood cultures no growth at 48 hrs - empirically started on IV vanco (MRSA coverage indicated due to recent stent placement) + Cefepime (gram - coverage). Narrow to Rocephin 1g daily w/ plan for transition to PO cefdinir. (2) Hydronephrosis concurrent with and due to calculi of kidney and ureter: Plan: - composition analysis run on previous stone - calcium oxalate. consider lower sodium diet and initiation of K-citrate - continue flomax and IV fluids - urology following. No acute intervention planned unless fever or intractable symptoms. Outpatient f/u after tx of pyelo. (3) Hyperlipidemia: Plan: - continue home dose atorvastatin (4) Atrial fibrillation: Plan: - on anticoagulation for stroke risk reduction - on flecainide and digoxin for rhythm control (5) GERD (gastroesophageal reflux disease): Plan: - continue protonix (6) Benign hypertension: Plan: - continue home losartan (7) Hypokalemia: Plan: - repleting. follow bmp (8) Anemia: Plan: - macrocytic anemia. slight downtrend. follow cbc. check B12 and folate. Plan: FEN/GI: HH. NSS 100ml/hr. NPO after midnight. anticoag: Hold home Eliquis. Dispo: Med/Surg Code: Full Admission and Anticipated Discharge Date Admission Date: June 28, 2021 Supervising Physician Co-Signing Physician Notes Resident Physician Supervision Note: I independently interviewed and examined the patient and verified the armando history and physical, reviewed labs and image studies and agree with resident Dr. Gonzalez findings and care plan. Subjective No complaints overnight. His pain level is 2/10, slightly improved from yesterday. Denies fever/chills. No new urinary symptoms. No dysuria. Stools are slightly loose. Review of Systems Review of Systems: All systems reviewed & are unremarkable except as noted in HPI & below Physical Exam Physical Exam: General: Grossly A&O. NAD. Cooperative. HEENT: Atraumatic, normocephalic. EOMI Pulm: CTAB. -wheezes, -rales, -rhonchi. No respiratory distress. Cardiac: RRR, -mrg. No LE edema. Abdominal: Nontender, nondistended, soft. Results & Data Results & Data ([facility]) Vital Signs (Past 12 Hours) Vital Signs Temp Pulse Pulse Resp BP BP Pulse Ox 06/30/21 01:30 67 06/29/21 23:28 37.1 C 68 18 130/68 96 06/29/21 19:25 36.5 C 69 18 146/63 H 96 Resident Activity Tracking Resident Involvement: Resident Care Provided Care Provided: Adult Hospital Medicine (1) Atrial fibrillation Atrial fibrillation type: persistent (not longstanding) Qualified Code(s): I48.19 - Other persistent atrial fibrillation (2) Hyperlipidemia Hyperlipidemia type: unspecified Qualified Code(s): E78.5 - Hyperlipidemia, unspecified
[2021-06-30 08:06] LABS: Basophils # (auto) 0.01 K/uL (0-0.2); Basophils % (auto) 0.1 %; Eosinophils # (auto) 0.11 K/uL (0-0.5); Eosinophils % (auto) 1.6 %; Hematocrit (blood only) 28.8 % (42-52); Hemoglobin 9.9 g/dL (14.0-18.0); Immature Granulocytes # (auto) 0.02 K/uL (0.00-0.02); Immature Granulocytes % (auto) 0.3 %; Lymphocytes % (auto) 10.4 %; Mean Corpuscular Hemoglobin 35.5 pg (25-34); Mean Corpuscular Hgb Conc 34.4 g/dL (32-36); Mean Corpuscular Volume 103.2 fL (80-100); Mean Platelet Volume 9.7 fL (7.4-10.4); Monocytes # (auto) 1.36 K/uL (0.11-0.59); Monocytes % (auto) 20.2 %; Neutrophils # (auto) 4.53 K/uL (1.4-6.5); Neutrophils % (auto) 67.4 %; Platelet Count 211 K/uL (130-400); RDW Coefficient of Variation 13.4 % (11.5-14.5); RDW Standard Deviation 50.4 fL (36.4-46.3); Red Blood Count 2.79 M/uL (4.7-6.1); White Blood Count 6.73 K/uL (4.8-10.8)
[2021-06-30] MEDS: VANCOMYCIN HCL 750 MG in SODIUM CHLORIDE 0.9% 250 ML IV SCH (08:28)
[2021-06-30] MEDS: ACYCLOVIR 400 MG TAB PO SCH ×2 (08:29→20:41)
[2021-06-30] MEDS: CHOLECALCIFEROL 1,000 UNITS 25 MCG TAB PO SCH (08:29)
[2021-06-30] MEDS: DIGOXIN 0.125 MG TAB PO SCH (08:29)
[2021-06-30] MEDS: APIXABAN 5 MG TABLET PO SCH (08:29)
[2021-06-30] MEDS: FLECAINIDE ACETATE 100 MG TABLET PO SCH ×2 (08:29→20:41)
[2021-06-30 08:30] LABS: BUN Creatinine Ratio 20.8 (10-20); Calcium 7.9 mg/dl (8.5-10.1); Creatinine Clr Calc Pharmacy 88.9 ml/min; Est GFR (Non-African American) 93.2 ml/min; Potassium 3.1 mmol/L (3.5-5.1)
[2021-06-30] MEDS: PANTOprazole 40 MG TAB PO SCH (08:31)
[2021-06-30] MEDS: MAGNESIUM CHLORIDE 64MG DELAYED REL TAB PO SCH (08:31)
[2021-06-30] MEDS: TAMSULOSIN HCL 0.4 MG CAP PO SCH (08:31)
[2021-06-30] MEDS ORDERED: POTASSIUM CHLORIDE CRTAB 20 MEQ TABCR PO STA (11:19)
--- NOTE | 2021-06-30 12:33 | Urology Progress Note ---
Date of Service June 30, 2021 Assessment & Plan (1) Pyelonephritis: (2) Acute UTI (urinary tract infection): (3) Hydronephrosis: Plan: 71yo M admitted with sepsis secondary to acute right sided pyelonephritis. - Plan of care reviewed with Dr. Rucker. - Pt afebrile, hemodynamically stable, non-toxic appearing. - Labs reviewed - Wbc and creatinine normal. - Urine culture final with coag neg staph; Blood cultures NGTD - Continues on IV Vancomycin and Cefepime, follow cultures - Voiding without issue. - Given his clinical progression, no acute intervention warranted at this time. - Continue supportive care and antibiotic therapy. - Will need outpatient follow-up for possible stone treatment once infection has resolved. - Urology will follow. Please consult our service urgently if patient develops fever >101F, intractable pain or nausea, as this may necessitate urgent surgical intervention. Admission and Anticipated Discharge Date Admission Date: June 28, 2021 Subjective Pt examined at bedside this AM. Awake, resting in bed on arrival. No acute distress. Denies any pain or discomfort at present. No fevers overnight Denies chills or shakes Denies nausea/vomiting. Has been NPO. Voiding without issues. Denies hematuria/dysuria. Review of Systems Constitutional: as per Subjective / HPI Gastrointestinal: as per Subjective / HPI Genitourinary: + as per Subjective / HPI Physical Exam Constitutional: no acute distress Respiratory: no respiratory distress and no labored breathing Gastrointestinal (Abdomen): Inspection/Auscultation: abdomen normal to inspection Percussion/Palpation: abdomen soft; abdomen nontender and no guarding Skin: no rashes, warm and dry Neurologic: moves all extremities and awake Psychiatric: Orientation: alert, oriented x 3 and cooperative Genitourinary: no CVA tenderness Results & Data ([facility]) Vital Signs (Past 12 Hours) Vital Signs Temp Pulse Pulse Resp BP Pulse Ox 06/30/21 08:29 70 06/30/21 07:03 37.0 C 70 18 146/74 H 95 06/30/21 01:30 67 PG Care Time/CCT Total # of Minutes Spent Total Time Spent with Patient: Total time spent is greater than 50% in coordination of care (as documented) at patient's floor/unit and/or counseling patient: Coding Level of Care Code 82103 Subseq Hosp Care Lvl 2 Diagnoses Pyelonephritis N12 Hydronephrosis N13.30 Acute UTI (urinary tract infection) N39.0
[2021-06-30] MEDS ORDERED: LACTATED RINGER'S 1,000 ML IV SCH (18:00)
[2021-06-30] MEDS: SODIUM CHLORIDE 0.9% 1000ML 1,000 ML IV SCH (18:06)
[2021-06-30] MEDS: ATORVASTATIN 10 MG TAB PO SCH (20:41)
[2021-06-30] MEDS: LOSARTAN POTASSIUM 50 MG TAB PO SCH (20:42)
[2021-06-30] MEDS ORDERED: cefTRIAXone SODIUM 1,000 MG in DEXTROSE 5% 50 ML IV SCH (21:00)
[2021-06-30] MEDS ORDERED: LOPERAMIDE HCL 2 MG CAP PO PRN (21:16)
[2021-07-01] MEDS: SODIUM CHLORIDE 0.9% 1000ML 1,000 ML IV SCH (04:11)
--- NOTE | 2021-07-01 05:58 | Discharge Summary ---
Date of Service July 01, 2021 Admission HPI Per Admitting Provider Mr. Pizano is a 71-year-old male with a PMH significant for of multiple myeloma 1 year s/p autologous stem cell transplant on maintenance chemotherapy, obstructing kidney stone on 05/15 requiring stent placement + 10 days s/p stent removal, a fibb, HTN, HLD, and chronic low back pain who presents today for evaluation of fever and fatigue. Early this week, he began to have a flare of his back pain, notes it is not much different in character or severity from his usual pain, describes it as low midline, aching, and constant for several hours when it occurs. He started taking Tylenol for it, which has helped. He's had chills with the back pain, however no fever (although was taking Tylenol for pain). On Wednesday, he began to feel more fatigued, and yesterday he "felt like he got by a truck" with extreme fatigue, and has been in bed ever since then. He has also had a mild headache since then without neck stiffness or confusion, is alleviated with Tylenol, visible chills, and a fever this morning of 101.2 at home. He is also noted some increased urinary frequency, but without dysuria, hematuria, or difficulty voiding. Has a history of Lyme disease, and he does hike, he and his have removed some ticks from themselves and their cat over the past 2 months, but states they check themselves frequently on days when they have been in wooded areas and do not believe they have had any tick on them for more than a few hours. No rash. He is otherwise without chest pain, palpitations, SOB, cough, congestion, abdominal pain, or change in mild baseline nausea he has had over the past several months in the setting of known GB disease. In ED, febrile with a temperature of 102, hypertensive 159/74, other vital signs within normal limits stable, is on room air. Labs significant for WBC 11.83, lactate 1.1, procalcitonin 0.32. Hgb 12.7 (baseline), glucose 112, T bili 1.4. UA with trace protein and ketones, 1+ blood, leuk esterase, 10-30 WBCs. Dig level within normal limits. Bio fire panel positive for Lyme disease IgG antibody, negative IgM. CT A/P showed moderate to severe right-sided hydroureteronephrosis is similar to 05/15/2021 study however demonstrates progressively worsened perinephric and periureteral inflammation. There are three calculi with proximal right ureter at the level of L3-L4 within an area of a previously described ureteral stricture. Nonobstructing right nephrolithiasis. Prostamegaly with findings suggestive of chronic bladder outlet obstruction. No new lytic bone lesions are identified. Trace pleural effusions. Patient received cefepime, IVF, and Tylenol in ED. Case was discussed with urology who did not suggest any need for emergent intervention. Hospitalist service was consulted for further evaluation and workup. Admission Exam Per Admitting Provider General: awake, alert, no apparent distress Head: Normocephalic, atraumatic ENT: PERRL, EOMI, no pharyngeal exudate, mucous membranes moist Chest: Clear to auscultation, on room air, no adventitious breath sounds Cardiac: Regular rate and rhythm, no murmur, no JVD, normal peripheral pulses, good capillary refill Abdominal: NABS x 4 quadrants, soft, nontender to palpation, no rebound, guarding or tenderness Extremities: Normal inspection, no peripheral edema or erythema, calfs nontender to palpation Psych: Normal mood and affect Neuro: AAO x 3, strength intact bilaterally and rated 5/5, no motor deficits, speech is clear, no peripheral sensory deficits Skin: no rash or erythema Principal Diagnosis pyelonephritis Discharge Exam General: Grossly A&O. NAD. Cooperative. HEENT: Atraumatic, normocephalic. EOMI Pulm: Bibasilar insp crackles, more noticeable on R. No respiratory distress. Cardiac: RRR, -mrg. No LE edema. Abdominal: Nontender, nondistended, soft. Back: No cva ttp. Discharge Data Allergies Allergy/AdvReac Type Severity Reaction Status Date / Time grass pollen Allergy Unknown hay fever Verified 06/28/21 16:22 symptoms Consultations 06/28/21 16:28 ED Decision to Admit Stat 06/28/21 19:34 Consult Urology Routine Ordered Studies 06/30/21 07:22 06/30/21 07:22 CBC 06/30/21 Range/Units 07:22 WBC 6.73 (4.8-10.8) K/uL RBC 2.79 L (4.7-6.1) M/uL Hgb 9.9 L (14.0-18.0) g/dL Hct 28.8 L (42-52) % Plt Count 211 (130-400) K/uL Neut # (Auto) 4.53 (1.4-6.5) K/uL Lymph # (Auto) 0.70 L (1.2-3.4) K/uL Falls # (Auto) 1.36 H (0.11-0.59) K/uL Eos # (Auto) 0.11 (0-0.5) K/uL Baso # (Auto) 0.01 (0-0.2) K/uL Comprehensive Metabolic Panel 06/30/21 Range/Units 07:22 Sodium 140 (136-145) mmol/L Potassium 3.1 L (3.5-5.1) mmol/L Chloride 109 H (98-107) mmol/L Carbon Dioxide 24 (21-32) mmol/L BUN 15 (6-23) mg/dl Creatinine 0.72 (0.6-1.4) mg/dl Glucose 92 (70-99(Fasting)) mg/dl Calcium 7.9 L (8.5-10.1) mg/dl Intake and Output 06/30/21 07/01/21 07/01/21 22:59 06:59 14:59 Intake Total 260.000 / 2638.333 1000 / 2638.333 Balance 260.000 / 2638.333 1000 / 2638.333 Intake: IV 60.000 / 2263.333 1000 / 2263.333 Sodium Chloride 0.9% 1000ML 1, 1000 / 1000 000 ml @ 100 mls/hr IV .Q10H [facility] Rx#:[id number] cefTRIAXone SODIUM 1,000 mg In 60.000 / 60.000 Dextrose 5% 50 ml @ 100 mls/hr IV Q24H [facility] Rx#:[id number] Oral 200 / 375 Other: Other Intake Source NPO Abdomen/Pelvis CT 06/28/21 13:[address] WITHOUT CONTRAST CT DOSE: 298.95 mGy.cm HISTORY: Acute generalized abdominal pain with fever. History of multiple myeloma. fever, eval for obs uropathy, GB TECHNIQUE: Multiaxial CT images of the abdomen and pelvis were performed without contrast. A dose lowering technique was utilized adhering to the principles of ALARA. COMPARISON STUDY: CT abdomen and pelvis 05/15/2021, 05/14/2020. FINDINGS: Small pericardial effusion. Coronary artery calcifications. Suggestion of mild emphysema. Right greater than left trace pleural effusions. Mild dependent subsegmental bibasilar atelectasis. There is no pneumatosis or pneumoperitoneum. The unenhanced spleen, pancreas, gallbladder and adrenal glands are unremarkable. Hepatic steatosis. Unremarkable left kidney. There are 2 nonobstructing calculi noted within the right kidney measuring up to 8 mm within the interpolar distribution posteriorly. Moderate to severe right-sided hydroureteronephrosis with perinephric and periureteral inflammation. There are approximately 3 tiny calculi within the proximal right ureter measuring up to 3 mm at the level of L3-L4. On the prior study there is an 8 mm calculus within this region. On the prior study from 05/14/2020, ureteral stricture was noted within this area. Prostamegaly with urinary bladder wall thickening suggestive of chronic bladder outlet obstruction. Atherosclerosis of the aorta without aneurysm. Mild nonspecific distal esophageal wall thickening. No bowel obstruction or bowel wall thickening. Trace fluid tracks along the right pericolic gutter, likely secondary to aforementioned renal findings. Unremarkable soft tissues. The bones appear grossly intact. Degenerative changes of the spine, pelvis and hips. Chronic appearing Schmorl's nodes of the lumbar spine are unchanged. No new lucent bone lesions are identified. Unchanged subtle lucent foci of the pelvis and proximal femora. Lumbar levoscoliosis. IMPRESSION: 1. Moderate to severe right-sided hydroureteronephrosis is similar to 05/15/2021 study however demonstrates progressively worsened perinephric and periureteral inflammation. Correlate with urinalysis to exclude infection. 2. There are three calculi with proximal right ureter at the level of L3-L4 within an area of a previously described ureteral stricture. 3. Nonobstructing right nephrolithiasis. 4. Prostamegaly with findings suggestive of chronic bladder outlet obstruction. 5. No new lytic bone lesions are identified. 6. Trace pleural effusions. ACT 112: Negative or not required by law. The above report was generated using voice recognition software. It may contain grammatical, syntax or spelling errors. Electronically signed by: Colin Wilson M.D. 06/28/2021 3:55 PM Chest X-Ray 06/28/21 13:39 XR chest 1V portable HISTORY: 71 years-old Male SEPSIS acute sepsis COMPARISON: Chest radiographs 05/20/2021 TECHNIQUE: Portable AP view of the chest FINDINGS: The cardiomediastinal and hilar silhouettes are within normal limits. Unchanged mild diffuse interstitial coarsening. No pneumothorax, pleural effusion, airspace consolidation or overt pulmonary edema. Degenerative changes of the shoulders and spine. IMPRESSION: No acute process. ACT 112: Negative or not required by law. The above report was generated using voice recognition software. It may contain grammatical, syntax or spelling errors. Electronically signed by: Colin Wilson M.D. 06/28/2021 2:15 PM Liver Ultrasound 06/28/21 17:34 US liver HISTORY: 71 years-old Male abdominal pain with fever acute right upper quadrant abdominal pain COMPARISON: CT abdomen and pelvis of same day TECHNIQUE: Multiple real-time sonographic images of the abdominal right upper quadrant were obtained assessing grayscale appearance and color flow FINDINGS: The pancreas is partially obscured by bowel gas. Hepatic steatosis. No evidence of cirrhosis or hepatic mass. The liver measures up to 18.4 cm in length. Mild fatty sparing near the carmen hepatis. Trace gallbladder sludge without shadowing cholelithiasis, wall thickening or pericholecystic fluid. Negative sonographic Howell's sign. Normal common bile duct, 6 mm. Right-sided hydroureteronephrosis redemonstrated. IMPRESSION: 1. Right-sided hydronephrosis redemonstrated. 2. Hepatic steatosis. 3. Trace gallbladder sludge without cholelithiasis or sonographic evidence of acute cholecystitis. 4. No biliary ductal dilation. ACT 112: Negative or not required by law. The above report was generated using voice recognition software. It may contain grammatical, syntax or spelling errors. Electronically signed by: Colin Wilson M.D. 06/28/2021 7:55 PM Hospital Course (1) Pyelonephritis: 71 year old male w/ multiple myeloma, afib, HTN, HLD, and chronic low back pain who presents w/ R pyelonephritis w/ recent R ureteral stent removal 10 days prior to admission. - CT abdomen showed moderate to severe R hydronephrosis with worsening of perinephric stranding compared to film on 05/15/21. Unremarkable left kidney. There are 2 nonobstructing calculi noted within the right kidney measuring up to 8 mm within the interpolar distribution posteriorly. Moderate to severe right- sided hydroureteronephrosis with perinephric and periureteral inflammation. There are approximately 3 tiny calculi within the proximal right ureter measuring up to 3 mm at the level of L3-L4. - Urine culture grew pansensitive coag neg staph - 06/28 blood cultures no growth to date - empirically started on IV vanco (MRSA coverage indicated due to recent stent placement) + Cefepime (gram - coverage). Narrowed to Rocephin. Discharging home on 11.5 days of Cefdinir for total of 14 day treatment course. (2) Hydronephrosis concurrent with and due to calculi of kidney and ureter: - composition analysis run on previous stone - calcium oxalate. consider lower sodium diet - flomax and IV fluids provided inpatient, since discontinued - urology consulted. No acute intervention planned while inpatient. Outpatient f/u w/ urology to evaluate if need intervention. (3) Hyperlipidemia: - continue home dose atorvastatin (4) Atrial fibrillation: - on anticoagulation for stroke risk reduction - on flecainide and digoxin for rhythm control (5) GERD (gastroesophageal reflux disease): - continue protonix (6) Benign hypertension: - continue home losartan (7) Hypokalemia: - repleted. repeat BMP in 1 month (8) Anemia: - macrocytic anemia. slight downtrend in Hb. B12 182 (normal 180-914). Folate 12.03 (normal >5.38). - consider B12 supplementation Patient was full code this admission. Total Time Total Time Spent Total Time Spent (In Minutes): <30 Discharge Plan Discharge Items Patient Disposition: Home - Self-Care Reason For Visit: FEVER,BACK PAIN 10 DAYS S/P URINARY STENT REMOVAL Discharge Diagnosis: pyelonephritis Activity: Per Instructions section Non-emergency contact: Primary Care Provider and Urologist Call non-emergency contact if: you have any medication questions, your symptoms worsen and you have a fever Follow-up/Referrals: Que Rucker DO [Physician] - (outpatient urology follow up in 7-10 days) Guillermo Hilario DO [Primary Care Provider] - 07/08/21 12:00 pm Diet: Regular Addtl Attending Provider Instructions: Mr. Pizano, You were admitted to [facility] for infection of your right kidney. CT scan showed 2 medium sized kidney stones (8mm) that are not blocking the ureter and 3 smaller stones (3mm) in the ureter. You were treated with IV antibiotics and your symptoms improved. Urology consulted during the admission and recommends outpatient follow up. You have been prescribed an oral antibiotic called cefdinir. It has been sent to [facility] in [place]. Take this twice a day for 11.5 days. Start the first dose tonight. A referral has been placed to urology. If you do not hear back from the director meetings within a few days, please call the [facility] urology office. If you develop any new or worsening symptoms including fever, chills, sweats, chest pain, chest pressure, difficulty breathing, uncontrolled nausea/vomiting, rash, wheezing, passing out or nearly passing out, bleeding, black/bloody bowel movements, or other new or concerning symptoms please call your primary care physician, or call 911 for re-evaluation in the emergency department if you are very concerned. Pending Studies at Discharge: No Stand-Alone Forms: [facility] [employer], Smoking Cessation Medications and DC Order Prescriptions: New cefdinir 300 mg capsule 300 mg PO BID 11 Days Qty: 23 RF: 0 Continued Eliquis 5 mg tablet 5 mg PO BID Qty: 60 RF: 11 atorvastatin 20 mg tablet 10 mg PO QPM RF: 0 Xgeva 120 mg/1.7 mL (70 mg/mL) solution 120 mg subcut MONTHLY RF: 0 cholecalciferol (vitamin D3) 25 mcg (1,000 unit) capsule 1,000 unit PO QAM RF: 0 Velcade 3.5 mg recon soln 1 mg subcut .EVERY 2 WEEKS RF: 0 acyclovir 800 mg tablet 800 mg PO BID RF: 0 pantoprazole 40 mg tablet,delayed release (DR/EC) 40 mg PO QAM RF: 0 flecainide 50 mg tablet 50 mg PO BID RF: 0 losartan 100 mg tablet 100 mg PO QPM RF: 0 digoxin 125 mcg (0.125 mg) Tablet 125 mcg PO QAM RF: 0 Discharge Orders: Discharge Order (Routine); Ordered 07/01/21 Ordered By: Edwrad Garner/Other Patient Handouts: Cefdinir Oral Capsule 300 mg, Understanding Kidney Stones, Understanding Hydronephrosis Admission Data Admit Date/Time: 06/28/21 17:29 Attending Provider: Beverly Romero Admit Provider: Bijan Marie Primary Care Provider: Guillermo Hilario Other Providers: Bijan Marie ; Que Rucker ; Tu Low Other Interventions: Discharge Summary Assessment (RN) Last Done: 07/01/21 14:08 Supervising Physician Co-Signing Physician Notes Resident Physician Supervision Note: I independently interviewed and examined the patient and verified the armando history and physical, reviewed labs and image studies and agree with resident Dr. Gonzalez findings and care plan. Resident Activity Tracking Resident Involvement: Resident Care Provided Care Provided: Adult Hospital Medicine
[2021-07-01 07:48] LABS: Basophils # (auto) 0.01 K/uL (0-0.2); Basophils % (auto) 0.2 %; Eosinophils # (auto) 0.13 K/uL (0-0.5); Hematocrit (blood only) 31.7 % (42-52); Hemoglobin 10.7 g/dL (14.0-18.0); Immature Granulocytes # (auto) 0.01 K/uL (0.00-0.02); Immature Granulocytes % (auto) 0.2 %; Lymphocytes # (auto) 0.86 K/uL (1.2-3.4); Lymphocytes % (auto) 13.3 %; Mean Corpuscular Hemoglobin 35.2 pg (25-34); Mean Corpuscular Hgb Conc 33.8 g/dL (32-36); Mean Corpuscular Volume 104.3 fL (80-100); Monocytes # (auto) 0.65 K/uL (0.11-0.59); Neutrophils # (auto) 4.81 K/uL (1.4-6.5); Neutrophils % (auto) 74.3 %; Platelet Count 252 K/uL (130-400); RDW Coefficient of Variation 13.2 % (11.5-14.5); RDW Standard Deviation 50.1 fL (36.4-46.3); Red Blood Count 3.04 M/uL (4.7-6.1); White Blood Count 6.47 K/uL (4.8-10.8)
[2021-07-01 08:52] LABS: Calcium 8.3 mg/dl (8.5-10.1); Creatinine Clr Calc Pharmacy 86.6 ml/min; Est GFR (African American) 106.2 ml/min; Est GFR (Non-African American) 91.6 ml/min; Magnesium 1.8 mg/dl (1.7-2.4); Potassium 3.5 mmol/L (3.5-5.1)
[2021-07-01] MEDS: FLECAINIDE ACETATE 100 MG TABLET PO SCH (09:12)
[2021-07-01] MEDS: ACYCLOVIR 400 MG TAB PO SCH (09:12)
[2021-07-01] MEDS: DIGOXIN 0.125 MG TAB PO SCH (09:14)
[2021-07-01] MEDS: PANTOprazole 40 MG TAB PO SCH (09:14)
[2021-07-01] MEDS: TAMSULOSIN HCL 0.4 MG CAP PO SCH (09:14)
[2021-07-01] MEDS: MAGNESIUM CHLORIDE 64MG DELAYED REL TAB PO SCH (09:14)
[2021-07-01] MEDS: CHOLECALCIFEROL 1,000 UNITS 25 MCG TAB PO SCH (09:14)
[2021-07-01 09:23] LABS: Folate (Folic Acid) 12.03 ng/ml (>5.38)
[2021-07-01] MEDS ORDERED: POTASSIUM CHLORIDE CRTAB 20 MEQ TABCR PO STA (09:39)
[2021-07-01] MEDS ORDERED: MAGNESIUM SULFATE / D5W 1 GM/100 ML BAG IV ONE (10:00)
[2021-07-01] MEDS: ACETAMINOPHEN 325 MG TAB PO PRN (10:03)
[2021-07-02 08:19] LABS: 18KDIGG Band REACTIVE; 23KDIGG Band NON-REACTIVE; 23KDIGM Band DNR; 28KDIGG Band NON-REACTIVE; 30KDIGG Band NON-REACTIVE; 39KDIGG Band REACTIVE; 39KDIGM Band DNR; 41KDIGG Band NON-REACTIVE; 41KDIGM Band DNR; 45KDIGG Band NON-REACTIVE; 58KDIGG Band NON-REACTIVE; 66KDIGG Band NON-REACTIVE; 93KDIGG Band NON-REACTIVE; Lyme Antibodies, WB IgG NEGATIVE (NEGATIVE)
[2021-07-03 04:27] LABS: Babesia microti DNA Not Detected (Not Detected)
== END 2021-07-01 15:11 | disposition home or self-care (01) | DRG 872 ==
LOC: ED 12:57 → 2W 17:29 → SUATTDRO 17:29 → 2W 18:13
DX: N13.6 Pyonephrosis; D64.9 Anemia, unspecified; C90.00 Multiple myeloma not having achieved remission; I10 Essential (primary) hypertension; Z79.01 Long term (current) use of anticoagulants; Z94.84 Stem cells transplant status; A69.20 Lyme disease, unspecified; I48.91 Unspecified atrial fibrillation; K21.9 Gastro-esophageal reflux disease without esophagitis; I44.0 Atrioventricular block, first degree; A41.9 Sepsis, unspecified organism; K82.8 Other specified diseases of gallbladder; E87.6 Hypokalemia; E78.5 Hyperlipidemia, unspecified

== ENCOUNTER 2024-06-16 18:49 | Observation (INO) ==
--- NOTE | 2024-06-16 19:26 | Emergency Department Note ---
Impression & Plan SOB (shortness of breath), Parainfluenza infection, Immunocompromised, Failure of outpatient treatment, Pancytopenia, Lyme disease ED Provider Note NAME: FE GARCIA AGE: 74 SEX: M : 1950 ARRIVES VIA: Walk-In INFORMANT: [Patient] ED PROVIDER(S): [Dave Robert MD] CHIEF COMPLAINT: Flulike symptoms HISTORY OF PRESENT ILLNESS: Patient is a 74-year-old male who states that he has multiple myeloma. Every 2 weeks, he receives an injection and that helps control the symptoms. He states it is a chemo-like medication. The patient states that for 5 days, he has had flulike symptoms. He has had a cough, fatigue, congestion and some shortness of breath. Today, he had a low-grade temperature at 99 degrees. The patient went to [facility] 2 days ago and had a negative flu test. He had a negative at-home COVID test. He was given Tessalon. Today, he went back to his doctor's office and an x-ray of the chest was done that was unremarkable. He was given an antibiotic and an albuterol inhaler. He is not sure of the antibiotic name. As the patient felt worse even this evening, he presents for evaluation. Of note, looking at his outpatient records, he was placed on Augmentin earlier today. PMHx/PSHx/Social Hx: See Below PHYSICAL EXAM: GENERAL: Patient is in no acute distress. HEENT: No acute trauma, normocephalic atraumatic, mucous membranes moist, no nasal congestion. NECK: No stridor, no adenopathy, no meningismus, trachea is midline. LUNGS: He does have some diminished breath sounds with few crackles of the right base. Breath sounds are diminished bilaterally. HEART: Without murmurs gallops or rubs, regular rate and rhythm. ABDOMEN: Soft, nontender, no peritonitis. EXTREMITIES: No cyanosis, full range of motion of all the joints without pain or difficulty. NEUROLOGIC: Oriented x 3, no acute motor or sensory deficits, no focal weakness. SKIN: No jaundice, no diaphoresis. DIFFERENTIAL DIAGNOSIS: Bronchitis or pneumonia, dehydration, electrolyte balance, immunocompromise, viral illness, among others. EMERGENCY DEPARTMENT PROCEDURES: MEDICAL DECISION MAKING: There was a pancytopenia present, possibly from his chemotherapy-like injection received this week. Platelet count was lower than his typical baseline at 86. Anaplasmosis and Babesia testing was ordered because of this lower platelet count. There is a slight elevation to the creatinine, this elevation is likely from dehydration. No electrolyte abnormality in need of emergent correction. Lactic acid level was not elevated making sepsis less likely. There was no concerning liver enzyme elevation. ECG shows a sinus rhythm, no ischemia. Cardiac enzyme testing x 1 is not consistent with acute cardiac injury. Respiratory bio fire was positive for parainfluenza virus. Lyme disease testing was positive. Anaplasmosis and Babesia testing is pending. The patient was given 1.5 L of IV saline. He was given IV ceftriaxone for the Lyme disease coupled with the possibility of a subtle pneumonia just not seen on chest x-ray. He was given a DuoNeb. The patient has not done well outpatient. He has seen a few providers outpatient and continues to feel worse. The medications prescribed have not made any improvement. Given the immunocompromise, his parainfluenza infection, his pancytopenia, his Lyme disease finding, I do think admission would be warranted. I spoke with the patient and case management, the on-call hospitalist was consulted. Prior/Outside records/notes reviewed: Outpatient primary doctor note from today describing his presentation, findings and plan outpatient. ECG per my interpretation: Indication was shortness of breath. The ECG shows a normal sinus rhythm with a rate of 80. There is some baseline artifact. No acute ST elevation, no PVCs. The QTc is 486. Continuous Cardiac Monitoring per my interpretation: An order was placed for continuous cardiac monitoring. The monitor shows a rate of 80 with normal sinus rhythm. Imaging/x-ray results per my interpretation: Chest x-ray does not show pneumonia or CHF, there is no pneumothorax. Chronic Medical/Social conditions affecting care: History of multiple myeloma, advanced age. Care/Management discussed with: Case management, the on-call hospitalist. Level of care consideration(s): After review of the information above and other included data: --I believe the patient requires escalation of care to admission DISPOSITION: Admission Past Med/Surg History Problem List (Updated 06/16/24 @ 22:16 by Dave Robert MD) Lyme disease (Acute) Pancytopenia (Acute) Failure of outpatient treatment (Acute) Immunocompromised (Acute) Parainfluenza infection (Acute) SOB (shortness of breath) (Acute) Viral URI with cough Cervical spine arthritis patient has severe ROM restriction C-spine BPH w urinary obs/LUTS Vitamin D deficiency Chronic kidney disease, stage III (moderate) (Acute) Solitary kidney, acquired Osteopenia Benign hypertension First degree atrioventricular block Hydronephrosis Atrial fibrillation Hypokalemia GERD (gastroesophageal reflux disease) Kidney stones Multiple myeloma (Acute) S/p stem cell transplant (2020) Follows with oncology. Last seen 03/24/22- on maintenance Velcade History of autologous stem cell transplant (Acute) 2020 Low back pain Pyelonephritis Hydronephrosis concurrent with and due to calculi of kidney and ureter Anemia Lumbar spondylosis Spondylolisthesis, lumbar region Nephrolithiasis History of colon polyps Lesion of skin of nose Pain around toenail, right foot Compression fracture Leg length discrepancy Medical History Sinus node dysfunction Acute URI of multiple sites Acute UTI (urinary tract infection) Chronic anemia Stable at this time Renal insufficiency Right renal atrophy with poor function on the right side Severe right hydronephrosis secondary to obstruction from stone Compression of intervertebral disc Ureteral stone Biliary dyskinesia (Unknown) HX...EVAL WITH DR TRUJILLO...39 % LIMITED FUNCTIONING FOUND...NO SX INTERVENTION/CONTINUE TO MONITOR NO PROBLEMS WITH CURRENTLY Orthostatic hypotension Renal lesion Nausea Elevated MCV Borborygmi Anticoagulant long-term use Postural dizziness with presyncope HUMPHREYS (dyspnea on exertion) Carotid bruit Lightheadedness History of migraine Remote hx Medicare annual wellness visit, subsequent Bladder wall thickening Blurred vision Diarrhea Depression Right ureteral stone Lyme disease Remote hx, no current issues Anxiety MGUS (monoclonal gammopathy of unknown significance) Per records, pt unsure Dx'ed 2014 per heme records Hyperlipidemia IgG deficiency Per records, pt unsure Surgical History History of esophagogastroduodenoscopy (EGD) Status post laser lithotripsy of ureteral calculus History of cardioversion History of cystoscopy History of colonoscopy History of tooth extraction Family History Father Myocardial infarction Hypertension Grandmother Diabetes Sister Breast cancer Other No family history of adverse response to anesthesia Denies family history of Ovarian cancer Prostate cancer Colorectal cancer Social History Smoking Status: Never smoker packs per day: 1; Second Hand Exposure: No; Do You Dip or Chew Tobacco: No; Hx Alcohol Use: Yes Alcohol type: beer Alcohol Intake Frequency: 2-3 x/Week Hx Substance Use: No Preferred Language: Trinidadian Communication Ability: Effective Visual Impairment: Limited Hearing Ability: Normal 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 Required: No Beliefs That Will Affect Care: None marital status: Current Living Situation: Spouse Current Living Situation Comment: Lives at home with current occupational status: retired 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 [employer] How many Children do You have: 1 Feels Safe at Home: Yes Childhood Exposure to Second-Hand Smoke: Yes Diet: regular caffeine: Yes during the past year weight has: remained stable Dental Care, Regularly: Yes Physical Activity Frequency: 3-4 Times per Week Seatbelt Use: always Sunscreen Use: Yes Do you think of yourself as: straight/heterosexual Sexual Activity: has been sexually active, but not for at least 12 months Gender Identity: Male Assistive Devices: Denture - Upper and Glasses Allergies Allergies Allergy/AdvReac Type Severity Reaction Status Date / Time grass pollen Allergy Unknown hay fever Verified 06/16/24 11:30 symptoms Home Meds Home Medications Medication Instructions Recorded Confirmed cholecalciferol (vitamin D3) 25 1,000 unit PO QAM 02/02/20 06/16/24 mcg (1,000 unit) capsule bortezomib 3.5 mg injection powder 1 mg subcut UD 11/14/20 06/16/24 for solution (Velcade) denosumab 120 mg/1.7 mL (70 mg/mL) 120 mg subcut Q30D 04/16/21 06/16/24 subcutaneous solution (Xgeva) atorvastatin 40 mg tablet 20 mg PO PM 10/09/22 06/16/24 pantoprazole 40 mg tablet,delayed 40 mg PO QAM 10/09/22 06/16/24 release iron 18 mg tablet 36 mg PO DAILY 04/23/23 06/16/24 alfuzosin 10 mg tablet,extended 10 mg PO PM 03/15/24 06/16/24 release 24 hr finasteride 5 mg tablet 5 mg PO PM 03/15/24 06/16/24 Previous Rx's Medication Instructions Recorded apixaban 5 mg tablet (Eliquis) 5 mg PO BID #60 tabs 02/09/20 losartan 100 mg tablet 100 mg PO HS #90 tabs 07/07/23 flecainide 100 mg tablet 100 mg PO BID #180 tabs 03/24/24 amlodipine 10 mg tablet 10 mg PO DAILY #30 tabs 06/01/24 potassium citrate 10 mEq (1,080 10 meq PO QAM #90 tabs 06/08/24 mg) tablet,extended release benzonatate 100 mg capsule 100 mg PO TID PRN cough #30 caps 06/14/24 albuterol sulfate 90 mcg/actuation 2 puff inhalation QID PRN 06/16/24 aerosol inhaler shortness of breath or wheezing #6.7 grams amoxicillin 500 mg-potassium 1 tab PO BID #14 tabs 06/16/24 clavulanate 125 mg tablet (Augmentin) spacer device #1 ea 06/16/24 Results & Data (ED) Vital Signs Vital Signs - 24 hr 06/16/24 18:55 06/16/24 19:06 06/16/24 19:07 Temperature 37.2 C 36.6 C Temperature Source Oral Oral Pulse Rate 89 80 Pulse Rate [Apical] 81 Pulse Rhythm Pulse Rhythm [Apical] Regular Pulse Strength [Apical] Normal Respiratory Rate 18 22 Respiratory Effort / Characteristics Non-Labored Spontaneous Non-Labored Spontaneous Respiratory Depth Normal Normal Respiratory Pattern Regular Blood Pressure 127/69 Blood Pressure [Right Arm] 161/86 H Blood Pressure Mean 88 Blood Pressure Mean [Right Arm] 111 Blood Pressure Position [Right Arm] Lying Pulse Oximetry 95 95 Oxygen Delivery Method Room Air Room Air Sepsis Recent Fever Within 48 Hours Yes Sepsis New/Unexplained Change in Mental Status No Sepsis Action Taken by Nursing No Action Required 06/16/24 19:37 06/16/24 20:40 Temperature Temperature Source Pulse Rate 77 Pulse Rate [Apical] 81 Pulse Rhythm Regular Pulse Rhythm [Apical] Regular Pulse Strength [Apical] Normal Respiratory Rate 24 22 Respiratory Effort / Characteristics Non-Labored Spontaneous Respiratory Depth Normal Respiratory Pattern Regular Blood Pressure Blood Pressure [Right Arm] 153/78 H Blood Pressure Mean Blood Pressure Mean [Right Arm] 103 Blood Pressure Position [Right Arm] Lying Pulse Oximetry 93 95 Oxygen Delivery Method Room Air Room Air Sepsis Recent Fever Within 48 Hours Sepsis New/Unexplained Change in Mental Status Sepsis Action Taken by Longterm Medications Current Medication List: was personally reviewed by me Laboratory Data Attestation: I reviewed the patient's lab results. 06/16/24 19:30 06/16/24 19:30 Lab Results 06/16/24 Range/Units 19:30 WBC 3.12 L (4.8-10.8) K/ul RBC 3.60 L (4.70-6.10) M/uL Hgb 12.8 L (14.0-18.0) g/dl Hct 36.1 L (42.0-52.0) % MCV 100.3 H (80.0-100.0) fL MCH 35.6 H (25.0-34.0) pg MCHC 35.5 (32.0-36.0) g/dL RDW Std Deviation 45.4 (36.4-46.3) fL RDW Coeff of Chapo 12.2 (11.5-14.5) % Plt Count 86 L (130-400) K/uL MPV 10.8 (9.4-12.4) fL Immature Gran % (Auto) 0.3 % Neut % (Auto) 73.1 % Lymph % (Auto) 13.5 % [place] % (Auto) 12.8 % Eos % (Auto) 0.0 % Baso % (Auto) 0.3 % Neut # (Auto) 2.28 (1.40-6.50) K/uL Lymph # (Auto) 0.42 L (1.20-3.40) K/uL [place] # (Auto) 0.40 (0.11-0.59) K/uL Eos # (Auto) 0.00 (0.00-0.50) K/uL Baso # (Auto) 0.01 (0.00-0.20) K/uL Immature Gran # (Auto) 0.01 (0.01-0.20) K/uL Sodium 137 (136-145) mmol/L Potassium 4.1 (3.5-5.1) mmol/L Chloride 109 H (98-107) mmol/L Carbon Dioxide 19 L (21-32) mmol/L Anion Gap 9 (3-11) BUN 23 (6-23) mg/dl Creatinine 1.46 H (0.6-1.4) mg/dl Est Cr Clr Drug Dosing 46.6 ml/min eGFR 49.84 BUN/Creatinine Ratio 15.8 (10-20) Glucose 107 H (70-99(Fasting)) mg/dl Lactate 1.1 (0.4-2.0) mmol/L Calcium 8.3 L (8.6-10.3) mg/dl Magnesium 1.9 (1.7-2.4) mg/dl Total Bilirubin 0.7 (0.2-1.0) mg/dl AST 20 (13-39) U/L ALT 33 (7-52) U/L Alkaline Phosphatase 68 (34-104) U/L Troponin I High Sens 3.9 (0-20) pg/ml Total Protein 6.5 (6.0-8.3) gm/dl Albumin 4.4 (3.4-5.0) gm/dl Globulin 2.1 L (2.5-4.0) gm/dl Albumin/Globulin Ratio 2.1 H (0.9-2) Adenovirus (PCR) Not Detected (NotDetected) B. pertussis DNA (PCR) Not Detected (NotDetected) B.parapertussis DNA PCR Not Detected (NotDetected) Lyme Disease Screen Positive H (Negative) Lyme Tier 2 IgG Confirm Positive H (Negative) Lyme Tier 2 IgM Confirm Positive H (Negative) C. pneumoniae DNA (PCR) Not Detected (NotDetected) Coronavirus OC43 (PCR) Not Detected (NotDetected) Coronavirus HKU1 (PCR) Not Detected (NotDetected) Coronavirus 229E (PCR) Not Detected (NotDetected) SARS-CoV-2 (PCR) Not Detected (NotDetected) Coronavirus NL63 (PCR) Not Detected (NotDetected) Human Metapneumovir PCR Not Detected (NotDetected) Influenza Type A (PCR) Not Detected (NotDetected) Influenza Type B (PCR) Not Detected (NotDetected) M. pneumoniae (PCR) Not Detected (NotDetected) Parainfluenza 1 (PCR) Not Detected (NotDetected) Parainfluenza 2 (PCR) Not Detected (NotDetected) Parainfluenza 3 (PCR) DETECTED A (NotDetected) Parainfluenza 4 (PCR) Not Detected (NotDetected) RSV (PCR) Not Detected (NotDetected) Entero/Rhino (PCR) Not Detected (NotDetected) Administered Medications Discontinued Medications Albuterol (Albut/Ipratrop 3mg/0.5mg Neb 3 Ml Vial) 3 ml NEB NOW STA; Protocol Stop: 06/16/24 21:16 Last Admin: 06/16/24 21:28 Dose: 3 ml Documented By: LULY Sodium Chloride (Nss) 1,000 mls @ 999 mls/hr IV .Q1H1M ONE Stop: 06/16/24 20:23 Last Infusion: 06/16/24 21:31 Dose: Infused Documented By: Admin: 06/16/24 19:38 Dose: 999 mls/hr Documented By: LULY Ceftriaxone Sodium (Rocephin) 2,000 mg in 50 mls @ 100 mls/hr IV NOW STA Stop: 06/16/24 20:58 Last Infusion: 06/16/24 21:31 Dose: Infused Documented By: Admin: 06/16/24 20:49 Dose: 100 mls/hr Documented By: LULY Sodium Chloride (Nss) 500 mls @ 999 mls/hr IV .Q31M ONE Stop: 06/16/24 21:23 Last Admin: 06/16/24 21:01 Dose: 999 mls/hr Documented By: LULY Imaging Data Radiologist's Impression: Chest X-Ray 06/16/24 19:06 Exam(s): XR CXR 1 VIEW EXAM: XR Chest, 1 View CLINICAL HISTORY: Reason for exam: weakness. TECHNIQUE: Frontal view of the chest. COMPARISON: 06/16/2024 FINDINGS: Lungs: No consolidation. No overt edema. Pleural space: No pleural effusion. No pneumothorax. Heart: Unremarkable. No cardiomegaly. IMPRESSION: No acute cardiopulmonary abnormality. Electronically signed by: Sinan Chin MD 06/16/24 20:25 PM Discharge Plan Visit Data Chief Complaint: Flu Like Symptoms Stated Complaint: FLU LIKE SX ED Provider: Dave Robert Discharge Problem: SOB (shortness of breath), Parainfluenza infection, Immunocompromised, Failure of outpatient treatment, Pancytopenia, Lyme disease Patient Disposition: Admitted As Inpatient Condition: Fair Forms Stand Alone Forms: [facility] Prescriptions Prescriptions: No Action Eliquis 5 mg tablet 5 mg PO BID Qty: 60 11RF Patient Comments: stopping 03/09/22 losartan 100 mg tablet 100 mg PO HS Qty: 90 3RF flecainide 100 mg tablet 100 mg PO BID Qty: 180 3RF Xgeva 120 mg/1.7 mL (70 mg/mL) solution 120 mg subcut Q30D cholecalciferol (vitamin D3) 25 mcg (1,000 unit) capsule 1,000 unit PO QAM pantoprazole 40 mg tablet,delayed release (DR/EC) 40 mg PO QAM atorvastatin 40 mg tablet 20 mg PO PM Velcade 3.5 mg recon soln 1 mg subcut UD Patient Comments: dose varies, depends on weight - every 2 weeks Rx Instructions: every 2 weeks potassium citrate 10 mEq (1,080 mg) tablet extended release 10 meq PO QAM Qty: 90 3RF amlodipine 10 mg tablet 10 mg PO DAILY Qty: 30 5RF benzonatate 100 mg capsule 100 mg PO TID PRN (Reason: cough) Qty: 30 0RF amoxicillin-pot clavulanate [Augmentin] 500-125 mg tablet 1 tab PO BID Qty: 14 0RF albuterol sulfate 90 mcg/actuation HFA aerosol inhaler 2 puff inhalation QID PRN (Reason: shortness of breath or wheezing) Qty: 6.7 0RF (DME) spacer device See Rx Instructions .Route .MEDSUPPLY Qty: 1 0RF Rx Instructions: use with albuterol iron 18 mg Tablet 36 mg PO DAILY finasteride 5 mg tablet 5 mg PO PM Rx Instructions: TAKE 1 TABLET BY MOUTH EVERY DAY. alfuzosin 10 mg tablet extended release 24 hr 10 mg PO PM Rx Instructions: administer after the same meal each day Referrals Referrals: Guillermo Hilario DO [Primary Care Provider] -
[2024-06-16] MEDS: SODIUM CHLORIDE 0.9% 1,000 ML IV ONE (19:38)
[2024-06-16 20:11] LABS: Albumin Level 4.4 gm/dl (3.4-5.0); Bilirubin,Total 0.7 mg/dl (0.2-1.0); Calcium 8.3 mg/dl (8.6-10.3); Magnesium 1.9 mg/dl (1.7-2.4); Potassium 4.1 mmol/L (3.5-5.1)
[2024-06-16 20:17] LABS: Albumin Globulin Ratio 2.1 (0.9-2); BUN Creatinine Ratio 15.8 (10-20); Creatinine Clr Calc Pharmacy 46.6 ml/min; Globulin 2.1 gm/dl (2.5-4.0); Total Protein 6.5 gm/dl (6.0-8.3)
[2024-06-16 20:22] LABS: Troponin I High Sensitivity 3.9 pg/ml (0-20)
[2024-06-16 20:25] LABS: Basophils # (auto) 0.01 K/uL (0.00-0.20); Basophils % (auto) 0.3 %; Hematocrit (blood only) 36.1 % (42.0-52.0); Hemoglobin 12.8 g/dl (14.0-18.0); Immature Granulocytes # (auto) 0.01 K/uL (0.01-0.20); Immature Granulocytes % (auto) 0.3 %; Lymphocytes # (auto) 0.42 K/uL (1.20-3.40); Lymphocytes % (auto) 13.5 %; Mean Corpuscular Hemoglobin 35.6 pg (25.0-34.0); Mean Corpuscular Hgb Conc 35.5 g/dL (32.0-36.0); Mean Corpuscular Volume 100.3 fL (80.0-100.0); Mean Platelet Volume 10.8 fL (9.4-12.4); Monocytes % (auto) 12.8 %; Neutrophils # (auto) 2.28 K/uL (1.40-6.50); Neutrophils % (auto) 73.1 %; Platelet Count 86 K/uL (130-400); RDW Coefficient of Variation 12.2 % (11.5-14.5); RDW Standard Deviation 45.4 fL (36.4-46.3); White Blood Count 3.12 K/ul (4.8-10.8)
--- NOTE | 2024-06-16 20:26 | XRay Report ---
Exam(s): XR CXR 1 VIEW EXAM: XR Chest, 1 View CLINICAL HISTORY: Reason for exam: weakness. TECHNIQUE: Frontal view of the chest. COMPARISON: 06/16/2024 FINDINGS: Lungs: No consolidation. No overt edema. Pleural space: No pleural effusion. No pneumothorax. Heart: Unremarkable. No cardiomegaly. IMPRESSION: No acute cardiopulmonary abnormality. Electronically signed by: Sinan Chin MD 06/16/24 20:25 PM
[2024-06-16 20:42] LABS: Adenovirus PCR Not Detected (NotDetected); Bordetella parapertussis PCR Not Detected (NotDetected); Bordetella pertussis PCR Not Detected (NotDetected); Chlamydia pneumoniae PCR Not Detected (NotDetected); Coronavirus 229E PCR Not Detected (NotDetected); Coronavirus CoV-2 (COVID19)PCR Not Detected (NotDetected); Coronavirus HKU1 PCR Not Detected (NotDetected); Coronavirus NL63 PCR Not Detected (NotDetected); Coronavirus OC43PCR Not Detected (NotDetected); Human Metapneumovirus PCR Not Detected (NotDetected); Influenza A PCR Not Detected (NotDetected); Influenza B PCR Not Detected (NotDetected); Mycoplasma pneumoniae PCR Not Detected (NotDetected); Parainfluenza Virus 1 PCR Not Detected (NotDetected); Parainfluenza Virus 2 PCR Not Detected (NotDetected); Parainfluenza Virus 3 PCR DETECTED (NotDetected); Parainfluenza Virus 4 PCR Not Detected (NotDetected); Respiratory Syncytial VirusPCR Not Detected (NotDetected); Rhinovirus/Enterovirus PCR Not Detected (NotDetected)
[2024-06-16] MEDS: cefTRIAXone SODIUM 2,000 MG/50 ML BAG IV STA (20:49)
[2024-06-16] MEDS: SODIUM CHLORIDE 0.9% 500 ML IV ONE (21:01)
[2024-06-16 21:19] LABS: Lyme Screen Rflx Confirmation Positive (Negative)
[2024-06-16] MEDS: ALBUT/IPRATROP 3MG/0.5MG NEB 3 ML VIAL NEB STA (21:28)
[2024-06-16 21:53] LABS: Lyme Ab IgG 2nd Tier Confirm Positive (Negative); Lyme Ab IgM 2nd Tier Confirm Positive (Negative)
[2024-06-16 22:42] LABS: Appearance Urine Clear (Clear); Bacteria Urine Automated None Seen (None Seen); Bilirubin Urine Negative (Negative); Blood Urine Negative (Negative); Cast Urine Automated 0-2 /lpf (0-2); Color Urine Yellow; Epithelial Cell Urine Auto 0-2 /hpf (0-2); Glucose Urine UA Negative (Negative); Ketones Urine 2+ (Negative); Leukocyte Esterase Urine 2+ (Negative); Nitrite Urine Negative (Negative); Protein Urine Trace (Negative); RBC Urine Automated 0-2 /hpf (0-2); Specific Gravity Urine 1.016 (1.000-1.030); Urobilinogen Urine Negative (Negative)
[2024-06-16] MEDS: DOXYCYCLINE HYCLATE 100 MG CAP PO STA (22:48)
--- NOTE | 2024-06-16 23:15 | History & Physical Report ---
Date of Service June 16, 2024 Assessment & Plan (1) Lyme disease: (2) Immunocompromised: (3) Parainfluenza infection: (4) SOB (shortness of breath): (5) Viral URI with cough: (6) Chronic kidney disease, stage III (moderate): (7) Benign hypertension: (8) First degree atrioventricular block: (9) Atrial fibrillation: (10) GERD (gastroesophageal reflux disease): (11) Multiple myeloma: Plan 74 year old male with PMHx that includes multiple myeloma (on maintenance tx Velcade Q2 weeks, last injection Wednesday), CKD-III, HTN, A-fib, first degree AV block presenting with flu-like symptoms, worsening shortness of breath after failed outpatient management: #Lyme Disease: +Lyme screen with reflex studies +Lyme IgM and IgG, therefore likely early disseminated Lyme disease Start Doxycycline BID Anaplasmosis and Babesia testing pending, low suspicion for co-infection Check AM CBC, CMP #Parainfluenza: -Respiratory Biofire +Parainfluenza -CXR unremarkable and without overt signs of pneumonia, patient is stable on room air, afebrile - low suspicion for secondary bacterial pneumonia, additional abx coverage deferred at this time -Continue supportive care measures: Duonebs, Benzonatate, supplemental O2 PRN #HTN: Continue Losartan and Amlodipine #Paroxysmal A-fib: Continue Flecainide and Eliquis #HLD: Continue Atorvastatin #BPH w/LUTS: Continue Tamsulosin #GERD: Continue Protonix Dispo: Admit med-surg Diet: HH VTE ppx: Eliquis Full Code History of Present Illness Primary Care Provider: Guillermo Hilraio, 74 year old male with PMHx that includes multiple myeloma (on maintenance tx with Velcade Q2 weeks, last injection Wednesday), CKD-III, HTN, A-fib, first degree AV block presenting with flu-like symptoms, worsening shortness of breath after failed outpatient management. Patient initially become fatigued with cough, sore throat, chills on Wednesday. Also had intermittent episodes of diarrhea. Seen in the outpatient setting on two occasions - tested negative for Covid/flu and was given benzonatate at first encounter. Followed up with PCP for ongoing sx on 06/15, had a CXR done that was unremarkable and was started on Aug mentin and given an albuterol inhaler. Patient felt worse today, particularly short of breath, and presented for evaluation. At present, denies fevers/chills. Reports mild nausea, no vomiting, slightly improved shortness of breath after neb tx. After thinking back, does report feeling more generally fatigued over the past month. Notes that he does spend a significant amount of time outdoors, no known tick bites. Denies new rashes, myalgias/arthralgias. ED Course: Patient slightly tachypneic but vitals and labs generally unremarkable otherwise. Notable findings: +Parainfluenza, +Lyme screen with reflex studies +Lyme IgM and IgG CXR unremarkable and without overt signs of pneumonia. S/P Albuterol neb, 1L NS, Ceftriaxone x1 dose, Doxycycline x1 dose Allergies Allergy/AdvReac Type Severity Reaction Status Date / Time grass pollen Allergy Unknown hay fever Verified 06/16/24 11:30 symptoms Home Medications Medication Instructions Recorded Confirmed Type cholecalciferol (vitamin D3) 25 1,000 unit PO QAM 02/02/20 06/16/24 History mcg (1,000 unit) capsule apixaban 5 mg tablet (Eliquis) 5 mg PO BID #60 tabs 02/09/20 06/16/24 Rx bortezomib 3.5 mg injection powder 1 mg subcut UD 11/14/20 06/16/24 History for solution (Velcade) denosumab 120 mg/1.7 mL (70 mg/mL) 120 mg subcut Q30D 04/16/21 06/16/24 History subcutaneous solution (Xgeva) atorvastatin 40 mg tablet 20 mg PO PM 10/09/22 06/16/24 History pantoprazole 40 mg tablet,delayed 40 mg PO QAM 10/09/22 06/16/24 History release iron 18 mg tablet 36 mg PO DAILY 04/23/23 06/16/24 History losartan 100 mg tablet 100 mg PO HS #90 tabs 07/07/23 06/16/24 Rx alfuzosin 10 mg tablet,extended 10 mg PO PM 03/15/24 06/16/24 History release 24 hr finasteride 5 mg tablet 5 mg PO PM 03/15/24 06/16/24 History flecainide 100 mg tablet 100 mg PO BID #180 tabs 03/24/24 06/16/24 Rx amlodipine 10 mg tablet 10 mg PO DAILY #30 tabs 06/01/24 06/16/24 Rx potassium citrate 10 mEq (1,080 10 meq PO QAM #90 tabs 06/08/24 06/16/24 Rx mg) tablet,extended release benzonatate 100 mg capsule 100 mg PO TID PRN cough #30 caps 06/14/24 06/16/24 Rx albuterol sulfate 90 mcg/actuation 2 puff inhalation QID PRN 06/16/24 06/16/24 Rx aerosol inhaler shortness of breath or wheezing #6.7 grams amoxicillin 500 mg-potassium 1 tab PO BID #14 tabs 06/16/24 06/16/24 Rx clavulanate 125 mg tablet (Augmentin) spacer device #1 ea 06/16/24 06/16/24 Rx Past Med/Surg History Problem List (Updated 06/16/24 @ 22:16 by Dave Robert MD) Lyme disease (Acute) Pancytopenia (Acute) Failure of outpatient treatment (Acute) Immunocompromised (Acute) Parainfluenza infection (Acute) SOB (shortness of breath) (Acute) Viral URI with cough Cervical spine arthritis patient has severe ROM restriction C-spine BPH w urinary obs/LUTS Vitamin D deficiency Chronic kidney disease, stage III (moderate) (Acute) Solitary kidney, acquired Osteopenia Benign hypertension First degree atrioventricular block Hydronephrosis Atrial fibrillation Hypokalemia GERD (gastroesophageal reflux disease) Kidney stones Multiple myeloma (Acute) S/p stem cell transplant (2020) Follows with oncology. Last seen 03/24/22- on maintenance Velcade History of autologous stem cell transplant (Acute) 2020 Low back pain Pyelonephritis Hydronephrosis concurrent with and due to calculi of kidney and ureter Anemia Lumbar spondylosis Spondylolisthesis, lumbar region Nephrolithiasis History of colon polyps Lesion of skin of nose Pain around toenail, right foot Compression fracture Leg length discrepancy Medical History Sinus node dysfunction Acute URI of multiple sites Acute UTI (urinary tract infection) Chronic anemia Stable at this time Renal insufficiency Right renal atrophy with poor function on the right side Severe right hydronephrosis secondary to obstruction from stone Compression of intervertebral disc Ureteral stone Biliary dyskinesia (Unknown) HX...EVAL WITH DR TRUJILLO...39 % LIMITED FUNCTIONING FOUND...NO SX INTERVENTION/CONTINUE TO MONITOR NO PROBLEMS WITH CURRENTLY Orthostatic hypotension Renal lesion Nausea Elevated MCV Borborygmi Anticoagulant long-term use Postural dizziness with presyncope HUMPHREYS (dyspnea on exertion) Carotid bruit Lightheadedness History of migraine Remote hx Medicare annual wellness visit, subsequent Bladder wall thickening Blurred vision Diarrhea Depression Right ureteral stone Lyme disease Remote hx, no current issues Anxiety MGUS (monoclonal gammopathy of unknown significance) Per records, pt unsure Dx'ed 2015 per heme records Hyperlipidemia IgG deficiency Per records, pt unsure Surgical History History of esophagogastroduodenoscopy (EGD) Status post laser lithotripsy of ureteral calculus History of cardioversion History of cystoscopy History of colonoscopy History of tooth extraction Family History Father Myocardial infarction Hypertension Grandmother Diabetes Sister Breast cancer Other No family history of adverse response to anesthesia Denies family history of Ovarian cancer Prostate cancer Colorectal cancer Social History Smoking Status: Never smoker packs per day: 1; Second Hand Exposure: No; Do You Dip or Chew Tobacco: No; Hx Alcohol Use: Yes Alcohol type: beer Alcohol Intake Frequency: 2-3 x/Week Hx Substance Use: No Preferred Language: Bulgarian Communication Ability: Effective Visual Impairment: Limited Hearing Ability: Normal Fur Repairer Required: No Beliefs That Will Affect Care: None marital status: Current Living Situation: Spouse Current Living Situation Comment: Lives at home with current occupational status: retired 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 [employer] How many Children do You have: 1 Other Information That Helps Us Care for You: No Feels Safe at Home: Yes Safety Concerns: Feels Safe At This Time Childhood Exposure to Second-Hand Smoke: Yes Diet: regular caffeine: Yes during the past year weight has: remained stable Dental Care, Regularly: Yes Physical Activity Frequency: 3-4 Times per Week Seatbelt Use: always Sunscreen Use: Yes Do you think of yourself as: straight/heterosexual Sexual Activity: has been sexually active, but not for at least 12 months Gender Identity: Male Assistive Devices: Denture - Upper Review of Systems Review of Systems: as per HPI Physical Exam Physical Exam: Constitutional: no acute distress HEENT: NCAT, no conjunctival injection CV: RRR, extremities well-perfused, no LE edema Resp: +tachypnea, no accessory muscle use, lungs clear to auscultation bilaterally, no w/r/r appreciated. GI: nondistended MSK: no gross deformities Skin: warm, dry, no rash appreciated Neuro: alert, oriented, no focal neurologic deficit appreciated. Results & Data Results & Data Vital Signs (Past 12 Hours) Vital Signs Temp Pulse Pulse Resp BP BP Pulse Ox 06/16/24 22:00 88 24 156/67 H 94 06/16/24 20:40 81 22 153/78 H 95 06/16/24 19:37 77 24 93 06/16/24 19:07 80 06/16/24 19:06 36.6 C 81 22 161/86 H 95 06/16/24 18:55 37.2 C 89 18 127/69 95 O2 Del Method 06/16/24 22:00 Room Air 06/16/24 20:40 Room Air 06/16/24 19:37 Room Air 06/16/24 19:07 06/16/24 19:06 Room Air 06/16/24 18:55 Room Air Code Status & VTE Plan VTE Prophylaxis Plan VTE Prophylaxis will be ordered: Yes Supervising Physician Co-Signing Physician Notes I personally saw and examined the patient. I independently reviewed the labs, EKG (NSR 80 bpm), imaging, problem list, medication list, past medical history and family history. I verified all armando points and agree with resident physician Dr Johnnie White DO with the following exceptions and/or additions: 74 year old male with MM on bortezomib presents to the ER with worsening cough, shortness of breath. Generalized fatigue ongoing for longer (more like months) O/E HS RRR, no murmurs, Chest mild anterior rhonchi, no wheezing, no respiratory distress, Abdo SNT A/P Suspect acute presentation is more from parainfluenza virus. No acute pathology on CXR. WBC mildly reduced (suppressed with Plt suspect due to bortezomib). Routine guaifenesin, PRN dextromethorphan for cough Lyme disease - possible cause for more ongoing fatigue, treat with doxycycline Resident Activity Tracking Resident Involvement: Resident Care Provided Care Provided: Adult [facility] (6) Chronic kidney disease, stage III (moderate) Chronic kidney disease stage 3 subtype: unspecified whether 3a or 3b Qualified Code(s): N18.30 - Chronic kidney disease, stage 3 unspecified (9) Atrial fibrillation Atrial fibrillation type: persistent (not longstanding) Qualified Code(s): I48.19 - Other persistent atrial fibrillation (11) Multiple myeloma Multiple myeloma remission status: unspecified Qualified Code(s): C90.00 - Multiple myeloma not having achieved remission
[2024-06-16] MEDS ORDERED: ALBUT/IPRATROP 3MG/0.5MG NEB 3 ML VIAL NEB PRN (23:31)
[2024-06-16] MEDS ORDERED: POLYETHYLENE (MIRALAX) 17 GM PACK PO PRN (23:31)
[2024-06-16] MEDS ORDERED: ALUMINUM/MAGNESIUM SUSP 30 ML UDC PO PRN (23:31)
[2024-06-16] MEDS ORDERED: ACETAMINOPHEN 325 MG TAB PO PRN (23:31)
[2024-06-16] MEDS ORDERED: BENZONATATE 100 MG CAPSULE PO PRN (23:31)
[2024-06-16 23:50] VITALS: RESP 18
[2024-06-17] MEDS: ONDANSETRON INJ 2 MG/ML 2 ML VIAL IV PRN (01:09)
[2024-06-17] MEDS: FLECAINIDE ACETATE 100 MG TABLET PO SCH (01:34)
[2024-06-17] MEDS: MELATONIN 3 MG TAB PO PRN (01:43)
[2024-06-17] MEDS: FAMOTIDINE 20MG IV PUSH 20 MG/5 ML SYR IV STA (01:43)
[2024-06-17 03:58] VITALS: PULSE 75
[2024-06-17] MEDS ORDERED: DEXTROMETHORPHAN POLYMR COMPLX 30 MG/5 ML UDP PO PRN (05:14)
--- NOTE | 2024-06-17 05:20 | Billing Data ---
Date of Service June 16, 2024 Coding Level of Care Code 55228 INT INP/OBS CARE
[2024-06-17 07:59] LABS: Hemoglobin 12.1 g/dl (14.0-18.0); Immature Granulocytes # (auto) 0.01 K/uL (0.01-0.20); Immature Granulocytes % (auto) 0.3 %; Lymphocytes # (auto) 0.58 K/uL (1.20-3.40); Lymphocytes % (auto) 19.7 %; Mean Corpuscular Hemoglobin 35.8 pg (25.0-34.0); Mean Corpuscular Hgb Conc 35.6 g/dL (32.0-36.0); Mean Corpuscular Volume 100.6 fL (80.0-100.0); Mean Platelet Volume 10.8 fL (9.4-12.4); Monocytes # (auto) 0.38 K/uL (0.11-0.59); Monocytes % (auto) 12.9 %; Neutrophils # (auto) 1.98 K/uL (1.40-6.50); Neutrophils % (auto) 67.1 %; Platelet Count 78 K/uL (130-400); RDW Coefficient of Variation 12.3 % (11.5-14.5); RDW Standard Deviation 45.4 fL (36.4-46.3); Red Blood Count 3.38 M/uL (4.70-6.10); White Blood Count 2.95 K/ul (4.8-10.8)
--- NOTE | 2024-06-17 08:03 | Hospitalist Progress Note ---
Date of Service June 17, 2024 Assessment & Plan (1) Lyme disease: (2) Parainfluenza infection: (3) Thrombocytopenia: (4) Acute renal failure superimposed on stage 3 chronic kidney disease: (5) Multiple myeloma: Plan 74 year old male with PMHx that includes multiple myeloma (on maintenance tx with Velcade Q2 weeks, last injection 06/13/24 ), CKD-III, HTN, A-fib, first degree AV block presenting with flu-like symptoms, worsening shortness of breath after failed outpatient management: #Lyme Disease +Lyme screen with reflex studies +Lyme IgM and IgG, therefore likely early disseminated Lyme disease Start Doxycycline BID Anaplasmosis and Babesia testing pending, low suspicion for co-infection #Parainfluenza -Respiratory Biofire +Parainfluenza -CXR unremarkable and without overt signs of pneumonia, patient is stable on room air, afebrile - low suspicion for secondary bacterial pneumonia, additional abx coverage deferred at this time -Continue supportive care measures: Duonebs, Benzonatate, supplemental O2 PRN #Thrombocytopenia/Multiple Myeloma - 78,000 down from 83,000 - no Heparin products given - maintenance Velcade administered wednesday - no prior hx of thrombocytopenia - no significant change in HgB, no acute bleeding - follow outpatient with oncology #Acute renal failure in chronic kidney disease, stage IIIa - established with nephrology, last visit 06/07/24 - baseline Cr 1.3 w/ EGFR 54 cc/min - creatinine 1.46 on admission w/ EGFR of 49.84 and CO2 of 19 - creatinine has decreased to 1.21 w/EGFR of 62.44 and CO2 of 20 currently #HTN: slightly hypertensive with systolic bp of 157 positive 1.65 L since admission Continue Losartan and Amlodipine monitor bp outpatient #Paroxysmal A-fib: Continue Flecainide and Eliquis #HLD: Continue Atorvastatin #BPH w/LUTS: Continue Tamsulosin #GERD: Continue Protonix Admission and Anticipated Discharge Date Admission Date: June 16, 2024 Subjective Attending: Dr. Miner Mr. Pizano is a 74 year old male who was admitted yesterday with new onset Lyme Disease and Parainfluenza. Overnight, he was not hypoxic, but was slightly tachypneic. Afebrile since admission. Creatinine elevated on admission and now trending downward. Has developed thrombocytopenia with platelet count now of 78,000 (velcade on wednesday) patient is not neutropenic, but is leukopenic. slightly increased HTN. Currently, patient reports he is feeling much better today, but remains fatigued. He states he did not sleep last night. He reports cough and sob improved. He reports black watery diarrhea since wednesday, 1-2 BMs per day, and has had occasional black stools. He reports he does take iron supplementation daily. He reports nausea with doxycycline that improved with zofran, no abdominal pain or vomiting. He denies chest pain, BURTON, dizziness, weakness. He reports appetite has been poor for a little while now. Review of Systems 2 Review of Systems: A total of 10 systems has been reviewed and is negative other than as noted in HPI Physical Exam 2 Physical Exam: General: no acute distress; non-toxic appearing; well-nourished; cooperative HEENT: normocephalic, atraumatic; no scleral icterus; PERRLA w/ EOMs intact; vision and hearing grossly intact; no gingival bleeding Neck: supple; no lymphadenopathy; trachea midline Skin: warm, dry without signs of tenting; no cyanosis; no rashes, bruising, lesions, or erythema noted; no petichiae noted CV: chest wall NTP; RRR; S1/S2 normal; no murmurs/rubs/gallops; pulses intact and symmetric at radial, DP, and PT Lungs: no acute respiratory distress; symmetrical chest wall expansion; clear breath sounds across all lung moore w/o adventitious sounds; no wheezing ABD: Soft, NTP; BS present; no rebound/guarding; no distention MSK: no tics or fasciculations; no edema noted in the LEs b/l, nonerythematous Neuro: A&Ox3; normal mood and affect; fluent speech; no focal deficits; sensation grossly intact in the LEs b/l Results & Data Results & Data Vital Signs (Past 12 Hours) Vital Signs Temperature, hr, rr, bp, o2 saturations, o2 delivery method reviewed Temp Pulse Resp BP BP Pulse Ox O2 Del Method 06/17/24 04:00 Room Air 06/17/24 03:48 98.1 F 75 18 156/75 H 95 Room Air 06/17/24 03:11 74 18 130/64 93 Room Air 06/17/24 01:20 Room Air 04/19/25 01:20 98.8 F 75 18 121/53 L 93 Room Air 06/16/24 23:48 82 18 130/60 97 Room Air 06/16/24 22:00 88 24 156/67 H 94 Room Air 06/16/24 20:40 81 22 153/78 H 95 Room Air Laboratory Results 06/17/24 07:21 06/17/24 07:21 Diagnostic Findings Chest X-Ray 06/16/24 19:06 Exam(s): XR CXR 1 VIEW EXAM: XR Chest, 1 View CLINICAL HISTORY: Reason for exam: weakness. TECHNIQUE: Frontal view of the chest. COMPARISON: 06/16/2024 FINDINGS: Lungs: No consolidation. No overt edema. Pleural space: No pleural effusion. No pneumothorax. Heart: Unremarkable. No cardiomegaly. IMPRESSION: No acute cardiopulmonary abnormality. Electronically signed by: Sinan Chin MD 06/16/24 20:25 PM ECG Additional Comments: NSR ventricular rate of 80 PG Care Time/CCT Total # of Minutes Spent Total Time Spent with Patient: Total time spent is greater than 50% in coordination of care (as documented) at patient's floor/unit and/or counseling patient: Coding Level of Care Code None Diagnoses Lyme disease A69.20 Parainfluenza infection B34.8 Thrombocytopenia D69.6 Acute renal failure superimposed on stage 3 chronic kidney disease N17.9; N18.30 Multiple myeloma C90.00 Multiple myeloma remission status: unspecified (5) Multiple myeloma Multiple myeloma remission status: unspecified Qualified Code(s): C90.00 - Multiple myeloma not having achieved remission
[2024-06-17 08:05] LABS: Albumin Level 3.9 gm/dl (3.4-5.0); BUN Creatinine Ratio 14.9 (10-20); Bilirubin,Total 0.5 mg/dl (0.2-1.0); Calcium 7.6 mg/dl (8.6-10.3); Creatinine Clr Calc Pharmacy 56.2 ml/min; Total Protein 5.9 gm/dl (6.0-8.3)
[2024-06-17 08:40] VITALS: BP 157/74; TEMP 99; O2SAT 93
--- NOTE | 2024-06-17 08:58 | Electrocardiogram Report ---
Test Reason : Blood Pressure : */* mmHG Vent. Rate : 80 BPM Atrial Rate : 80 BPM P-R Int : 196 ms QRS Dur : 100 ms QT Int : 422 ms P-R-T Axes : 57 -38 80 degrees QTcB Int : 486 ms Normal sinus rhythm Left axis deviation Prolonged QT Abnormal ECG When compared with ECG of 02-Nov-2023 10:23, (unconfirmed) Incomplete right bundle branch block is no longer Present Minimal criteria for Anteroseptal infarct are no longer Present Confirmed by Vince Garza ([id number] on 06/17/2024 8:58:18 AM Referred By: REFERRED SELF Confirmed By: Vince Garza
[2024-06-17] MEDS ORDERED: DOXYCYCLINE HYCLATE 100 MG CAP PO SCH (09:00)
[2024-06-17] MEDS: APIXABAN 5 MG TABLET PO SCH (09:04)
[2024-06-17] MEDS: amLODIPine BESYLATE 5 MG TAB PO SCH (09:04)
[2024-06-17] MEDS: CHOLECALCIFEROL 25 MCG (1000 UNITS) TAB PO SCH (09:04)
[2024-06-17] MEDS: PANTOprazole 40 MG TAB PO SCH (09:04)
[2024-06-17] MEDS: DOXYCYCLINE HYCLATE 100 MG in DEXTROSE 5% MINI-B 100 ML IV SCH (09:05)
[2024-06-17] MEDS: guaiFENesin 600 MG TABCR PO SCH (09:17)
[2024-06-17] MEDS: POTASSIUM CITRATE 10 MEQ TAB PO SCH (09:17)
[2024-06-17] MEDS: BENZONATATE 100 MG CAPSULE PO PRN (10:06)
--- NOTE | 2024-06-17 14:47 | Discharge Summary ---
Discharge Summary Date of Service June 17, 2024 Principal Dx & Hospital Course #1 = Principal Diagnosis (1) Lyme disease: (2) Parainfluenza infection: (3) Thrombocytopenia: (4) Acute renal failure superimposed on stage 3 chronic kidney disease: (5) Multiple myeloma: Plan 74 year old male with PMHx that includes multiple myeloma (on maintenance tx with Velcade Q2 weeks, last injection 06/13/24 ), CKD-III, HTN, A-fib, first d egree AV block presenting with flu-like symptoms, worsening shortness of breath after failed outpatient management: #Lyme Disease +Lyme screen with reflex studies +Lyme IgM and IgG, therefore likely early disseminated Lyme disease Start Doxycycline BID Anaplasmosis and Babesia testing pending, low suspicion for co-infection #Parainfluenza -Respiratory Biofire +Parainfluenza -CXR unremarkable and without overt signs of pneumonia, patient is stable on room air, afebrile - low suspicion for secondary bacterial pneumonia, additional abx coverage deferred at this time -Continue supportive care measures: Duonebs, Benzonatate, supplemental O2 PRN #Thrombocytopenia/Multiple Myeloma - 78,000 down from 83,000 - no Heparin products given - maintenance Velcade administered wednesday - no prior hx of thrombocytopenia - no significant change in HgB, no acute bleeding - follow outpatient with oncology #Acute renal failure in chronic kidney disease, stage IIIa - established with nephrology, last visit 06/07/24 - baseline Cr 1.3 w/ EGFR 54 cc/min - creatinine 1.46 on admission w/ EGFR of 49.84 and CO2 of 19 - creatinine has decreased to 1.21 w/EGFR of 62.44 and CO2 of 20 currently #HTN: slightly hypertensive with systolic bp of 157 positive 1.65 L since admission Continue Losartan and Amlodipine monitor bp outpatient #Paroxysmal A-fib: Continue Flecainide and Eliquis #HLD: Continue Atorvastatin #BPH w/LUTS: Continue Tamsulosin #GERD: Continue Protonix Notes For Next Care Provider Repeat CBC/CMP ordered for Wednesday06/19/24. Please review. Medication Changes From Visit doxycycline for 21 days Admission HPI Per Admitting Provider 74 year old male with PMHx that includes multiple myeloma (on maintenance tx with Velcade Q2 weeks, last injection Wednesday), CKD-III, HTN, A-fib, first degree AV block presenting with flu-like symptoms, worsening shortness of breath after failed outpatient management. Patient initially become fatigued with cough, sore throat, chills on Wednesday. Also had intermittent episodes of diarrhea. Seen in the outpatient setting on two occasions - tested negative for Covid/flu and was given benzonatate at first encounter. Followed up with PCP for ongoing sx on 06/15, had a CXR done that was unremarkable and was started on Augmentin and given an albuterol inhaler. Patient felt worse today, particularly short of breath, and presented for evaluation. At present, denies fevers/chills. Reports mild nausea, no vomiting, slightly improved shortness of breath after neb tx. After thinking back, does report feeling more generally fatigued over the past month. Notes that he does spend a significant amount of time outdoors, no known tick bites. Denies new rashes, myalgias/arthralgias. ED Course: Patient slightly tachypneic but vitals and labs generally unremarkable otherwise. Notable findings: +Parainfluenza, +Lyme screen with reflex studies +Lyme IgM and IgG CXR unremarkable and without overt signs of pneumonia. S/P Albuterol neb, 1L NS, Ceftriaxone x1 dose, Doxycycline x1 dose Admission Exam Per Admitting Provider Constitutional: no acute distress HEENT: NCAT, no conjunctival injection CV: RRR, extremities well-perfused, no LE edema Resp: +tachypnea, no accessory muscle use, lungs clear to auscultation bilaterally, no w/r/r appreciated. GI: nondistended MSK: no gross deformities Skin: warm, dry, no rash appreciated Neuro: alert, oriented, no focal neurologic deficit appreciated Discharge Exam General: no acute distress; non-toxic appearing; well-nourished; cooperative HEENT: normocephalic, atraumatic; no scleral icterus; PERRLA w/ EOMs intact; vision and hearing grossly intact; no gingival bleeding. Neck: supple; no lymphadenopathy; trachea midline Skin: warm, dry without signs of tenting; no cyanosis; no rashes, bruising, lesions, or erythema noted CV: chest wall NTP; RRR; S1/S2 normal; no murmurs/rubs/gallops; pulses intact and symmetric at radial, DP, and PT Lungs: no acute respiratory distress; symmetrical chest wall expansion; clear breath sounds across all lung moore w/o adventitious sounds; no wheezing ABD: Soft, NTP; BS present; no rebound/guarding; no distention MSK: no tics or fasciculations; no edema noted in the LEs b/l, nonerythematous Neuro: A&Ox3; normal mood and affect; fluent speech; no focal deficits; sensation grossly intact in the LEs b/l Discharge Plan Discharge Items Patient Disposition: Home - Self-Care Reason For Visit: PARAINFLUENZA, LYME Discharge Diagnosis: Lyme Disease Parainfluenza infection Acute thrombocytopenia Acute renal failure in Stage IIIa CKD Multiple Myeloma Condition on Discharge: Fair Activity: Resume your previous activity Activity Comment: as tolerated. Non-emergency contact: Primary Care Provider and Oncologist Call non-emergency contact if: you have any medication questions and you have a fever Follow-up/Referrals: Guillermo Hilario DO [Primary Care Provider] - Radha Parish MD [Physician] - Diet: Regular Addtl Attending Provider Instructions: Mr. Pizano, Feliberto were admitted to the hospital for lyme disease, parainfluenza infection, acute thrombocytopenia, stage IIIa chronic kidney disease. You had labs and imaging during your stay. Your labs were positive for Lyme disease, which is being treated with Doxycycline 100mg PO BID. You were also tested for other tick borne illnesses, these results are pending. You had a respiratory panel performed that was positive for parainfluenza, which is a viral infection. You were treated with nebulizer and tessalon perrls for cough, supplemental O2 as needed for low oxygen level. You have remained without fever and without need for supplemental oxygen, so it is reasonable for you to continue treatment at home with antibiotic for lyme disease, albuterol inhaler as needed, tessalon perrls as needed. Please take antibiotic with food and until complete to ensure resolution of infection. I also advise rest and fluids to promote recovery. I also believe you may find benefit with initiation of supplemental nutrition with protein shake daily if experiencing poor appetite. Your labs were also significant for an acute decrease in your platelet count, which could be a result of Velcade injection on Wednesday and acute infection. You have no signs of active bleeding at this time and level is not low enough to indicate inpatient management at this time. You do require close follow up with labs to assess blood counts. I have ordered these labs to be completed on Wednesday. If you begin to have uncontrolled bleeding, please seek emergency care. You also had an acute decrease in your kidney function, likely secondary to recent illness. Your level has improved today. Please have your kidney function monitored and follow up with rail car mechanic as scheduled. Please schedule follow up with PCP and oncologist. It was a pleasure to be a part of your treatment team at [facility]. Pending Studies at Discharge: No Studies:: Anaplasmosis and Babesia testing Stand-Alone Forms: My [facility] Medications and DC Order Prescriptions: New doxycycline hyclate 100 mg capsule 100 mg PO BID 14 Days Qty: 28 0RF doxycycline hyclate 100 mg capsule 100 mg PO BID 21 Days Qty: 42 0RF Continued Eliquis 5 mg tablet 5 mg PO BID Qty: 60 11RF Patient Comments: stopping 03/09/22 losartan 100 mg tablet 100 mg PO HS Qty: 90 3RF flecainide 100 mg tablet 100 mg PO BID Qty: 180 3RF Xgeva 120 mg/1.7 mL (70 mg/mL) solution 120 mg subcut Q30D cholecalciferol (vitamin D3) 25 mcg (1,000 unit) capsule 1,000 unit PO QAM pantoprazole 40 mg tablet,delayed release (DR/EC) 40 mg PO QAM atorvastatin 40 mg tablet 20 mg PO PM Velcade 3.5 mg recon soln 1 mg subcut UD Patient Comments: dose varies, depends on weight - every 2 weeks Rx Instructions: every 2 weeks potassium citrate 10 mEq (1,080 mg) tablet extended release 10 meq PO QAM Qty: 90 3RF amlodipine 10 mg tablet 10 mg PO DAILY Qty: 30 5RF benzonatate 100 mg capsule 100 mg PO TID PRN (Reason: cough) Qty: 30 0RF albuterol sulfate 90 mcg/actuation HFA aerosol inhaler 2 puff inhalation QID PRN (Reason: shortness of breath or wheezing) Qty: 6.7 0RF (DME) spacer device See Rx Instructions .Route .MEDSUPPLY Qty: 1 0RF Rx Instructions: use with albuterol iron 18 mg Tablet 36 mg PO DAILY finasteride 5 mg tablet 5 mg PO PM Rx Instructions: TAKE 1 TABLET BY MOUTH EVERY DAY. alfuzosin 10 mg tablet extended release 24 hr 10 mg PO PM Rx Instructions: administer after the same meal each day Discontinued amoxicillin-pot clavulanate [Augmentin] 500-125 mg tablet 1 tab PO BID Qty: 14 0RF Discharge Orders: Discharge Order (Routine); Ordered 06/17/24 Ordered By: Elicia Garner/Other Patient Handouts: ED Lyme Disease Admission Data Admit Date/Time: 06/16/24 23:04 Attending Provider: Clarissa Miner Admit Provider: Johnnie White Primary Care Provider: Guillermo Hilario Other Providers: Óscar Allen Other Interventions: Discharge Summary Assessment (RN) Last Done: 06/17/24 15:20 Hospital Stay Data Consultations 06/16/24 21:58 ED Decision to Admit Stat Pending Results Patient Have Any Pending Studies at Discharge: Yes Discharge Instructions Given to Patient (Per Discharging Provider) Feliberto Dupree were admitted to the hospital for lyme disease, parainfluenza infection, acute thrombocytopenia, stage IIIa chronic kidney disease. You had labs and imaging during your stay. Your labs were positive for Lyme disease, which is being treated with Doxycycline 100mg PO BID. You were also tested for other tick borne illnesses, these results are pending. You had a respiratory panel performed that was positive for parainfluenza, which is a viral infection. You were treated with nebulizer and tessalon perrls for cough, supplemental O2 as needed for low oxygen level. You have remained without fever and without need for supplemental oxygen, so it is reasonable for you to continue treatment at home with antibiotic for lyme disease, albuterol inhaler as needed, tessalon perrls as needed. Please take antibiotic with food and until complete to ensure resolution of infection. I also advise rest and fluids to promote recovery. I also believe you may find benefit with initiation of supplemental nutrition with protein shake daily if experiencing poor appetite. Your labs were also significant for an acute decrease in your platelet count, which could be a result of Velcade injection on Wednesday and acute infection. You have no signs of active bleeding at this time and level is not low enough to indicate inpatient management at this time. You do require close follow up with labs to assess blood counts. I have ordered these labs to be completed on Wednesday. If you begin to have uncontrolled bleeding, please seek emergency care. You also had an acute decrease in your kidney function, likely secondary to recent illness. Your level has improved today. Please have your kidney function monitored and follow up with rail car mechanic as scheduled. Please schedule follow up with PCP and oncologist. It was a pleasure to be a part of your treatment team at [facility]. Supervising Physician Co-Signing Physician Notes I have reviewed vital signs, chart notes, labs and imaging. I have personally seen, evaluated and examined the patient. I have also discussed the management of the patient with the GRACE and I agree with the exam findings documented in Discharge summary and the documented assessment and plan unless otherwise stated below. 74-year-old man with multiple myeloma admitted with fatigue and respiratory symptoms. he has upper respiratory infection with parainfluenza which is stable he has some mild bronchospasm and previous days and has an albuterol inhaler at home there is no wheezing on my exam today. He was also found to have Lyme disease we will treat him with planned 21 days of doxycycline, this could be shortened to 14 days if he is having problems with GI intolerance he has pancytopenia that is probably related to his underlying multiple myeloma as well as antineoplastic chemotherapy. it could be aggravated by either viral infection or Lyme. he will follow-up with Dr. Parish I personally counseled Mr. Pizano and his regarding plan of care for discharge Total Time Total Time Spent Total Time Spent (In Minutes): >30 Coding Level of Care Code 18119 INP/OBS DISCH >30 MIN Diagnoses Lyme disease A69.20 Parainfluenza infection B34.8 Thrombocytopenia D69.6 Acute renal failure superimposed on stage 3 chronic kidney disease N17.9; N18.30 Multiple myeloma C90.00 Multiple myeloma remission status: unspecified
[2024-06-17] MEDS ORDERED: TAMSULOSIN HCL 0.4 MG CAP PO SCH (21:00)
[2024-06-17] MEDS ORDERED: ATORVASTATIN 20 MG TAB PO SCH (21:00)
[2024-06-17] MEDS ORDERED: LOSARTAN POTASSIUM 50 MG TAB PO SCH (21:00)
[2024-06-17] MEDS ORDERED: FINASTERIDE 5 MG TAB PO SCH (21:00)
[2024-06-21 13:47] LABS: Babesia microti DNA Not Detected (Not Detected)
== END 2024-06-17 16:12 | disposition home or self-care (01) ==
LOC: ED 18:49 → SUATTDRO 23:04 → EDINP 23:04 → INTOOBSV 23:04 → 2W 23:31